=== PATIENT | female | born 1955 | race Caucasian/White ===

== ENCOUNTER 2019-05-15 11:41 | Emergency (ER) | payer OTHER ==
[~2019-05-15] VITALS: Ht 144.8 cm; Wt 79.4 kg
--- OUTSIDE RECORDS SUMMARY | ~2019-05-15 | XMS | Clinical Summary ---
Demographics + + + | Address | [address] | | | [place] [address] | + + + | Home Phone | | + + + | Preferred Language | Unknown | + + + | Marital Status | Single | + + + | Yazidi Affiliation | 1041 | + + + | Race | Unknown | + + + | Ethnic Group | Unknown | + + + Author + + + | Author | [facility] | | | and [place] | + + + | Organization | [facility] | | | and [place] | + + + | Address | Unknown | + + + | Phone | Unavailable | + + + Support + + + + + | Name | Relationship | Address | Phone | + + + + + | Jeremy Hinton | ECON | [address] | | | | | [id number] | | | | | [address] | | + + + + + Care Team Providers + +------+ + | Care Brush Hand Name | Role | Phone | + +------+ + | Idalia Rae DO | PCP | Unavailable | + +------+ + Allergies + + + + + + | Active Allergy | Reactions | Severity | Noted | Comments | | | | | Date | | + + + + + + | Sulfa Antibiotics | | | 09/15/19 | | | | | | 18 | | + + + + + + Medications + + + +---------+------+------+-------+ | Medication | Sig | Dispensed | Refills | Star | End | Statu | | | | | | t | Date | s | | | | | | Date | | | + + + +---------+------+------+-------+ | raNITIdine | Take 75 mg by mouth | | 0 | | | Activ | | (RANITIDINE ACID | 2 times daily. | | | | | e | | MANAGER ACTUARIAL) 75 MG | | | | | | | | tablet | | | | | | | + + + +---------+------+------+-------+ | levothyroxine | Take 75 mcg daily | 90 | 1 | 07/10 | | Activ | | (SYNTHROID) 75 MCG | | tablet | | 01/26 | | e | | tabletIndications: | | | | 19 | | | | Hypothyroidism, | | | | | | | | unspecified type | | | | | | | + + + +---------+------+------+-------+ Active Problems + + + | Problem | Noted Date | + + + | Gastroesophageal reflux disease without esophagitis | 09/14/2017 | + + + | Mild intermittent asthma without complication | 09/14/2017 | + + + | Migraine without aura and without status migrainosus, not | 09/14/2017 | | intractable | | + + + | Primary osteoarthritis of both knees | 09/14/2017 | + + + | Acquired hypothyroidism | 09/14/2017 | + + + | Colon polyp | 09/14/2017 | + + + | Obesity (BMI 35.0-39.9 without comorbidity) | 09/14/2017 | + + + | Other hyperlipidemia | 09/14/2017 | + + + | Vitamin D deficiency | 09/14/2017 | + + + Immunizations + + + + | Name | Dates Previously Given | Next Due | + + + + | TDAP, (ADOL/ADULT) | 05/11/2016 | | + + + + Family History + + +------+ + | Medical History | Relation | Name | Comments | + + +------+ + | Asthma | Daughter | | | + + +------+ + | COPD | Father | | | + + +------+ + | Heart disease | Father | | | + + +------+ + | High blood pressure | Father | | | + + +------+ + | Asthma | Mother | | | + + +------+ + + +------+--------+ + | Relation | Name | Status | Comments | + +------+--------+ + | Daughter | | | | + +------+--------+ + | Father | | | | + +------+--------+ + | Mother | | | | + +------+--------+ + Social History + +-------+ +--------+------+ | [...] + +---------+ + | Alcohol Use | Drinks/We | oz/Week | Comments | | | ek | | | + + +---------+ + | Yes [...] recent travel history available. | + + Last Filed Vital Signs + + + + | Vital Sign | Reading | Time Taken | + + + + | Blood Pressure | 140/74 | 12/28/2017 1112 PDT | + + + + | Pulse | 92 | 12/28/20171111 PDT | + + + + | Temperature | 36 C (96.8 F) | 12/01/20171137 PDT | + + + + | Respiratory Rate | 16 | 12/28/20171111 PDT | + + + + | Oxygen Saturation | 96% | 12/28/20171111 PDT | + + + + | Inhaled Oxygen | - | - | | Concentration | | | + + + + | Weight | 77.4 kg (170 lb 9.6 | 12/28/20171111 PDT | | | oz) | | + + + + | Height | 144.8 cm (4' 9") | 12/28/20171111 PDT | + + + + | Body Mass Index | 36.92 | 12/28/20171111 PDT | + + + + Plan of Treatment + + + + + | Health Maintenance | Due Date | Last Done | Comments | + + + + + | Hepatitis C | | | | | Screening | 7 | | | + + + + + | Vaccine: | | | | | Pneumococcal 19-64 | 6 | | | | (PPSV23 only) Medium | | | | | Risk (1 of 1 - | | | | | PPSV23) | | | | + + + + + | Cervical Cancer | | | | | Screening (Pap) | 7 | | | + + + + + | Vaccine: Zoster (1 | | | | | of 2) | 7 | | | + + + + + | Breast Cancer | | 11/24/2016 | | | Screening | 9 | | | + + + + + | Primary Care | | 12/28/2017, 10/05/2017, | | | Outreach (Moderate | 9 | 09/14/2017 | | | Risk) | | | | + + + + + | Vaccine: Influenza | | | | | (#1) | 9 | | | + + + + + | Vaccine: | | 05/11/2016 | | | Dtap/Tdap/Td (2 - | 6 | | | | Td) | | | | + + + + + Results Not on filefrom Last 3 Months Insurance + +--------+ +--------+ +---------+--------+ | Payer | Benefi | Subscriber | Effect | Phone | Address | Type | | | t Plan | ID | kandice | | | | | | / | | Dates | | | | | | Group | | | | | | + +--------+ +--------+ +---------+--------+ | [employer] | [employer] | [id number] | 05/25/ | [phone] | | Medica | | MEDICAID HMO | HEALTH | | 2017-P | 1 | | id | | | MDCD | | resent | | | | | | [place]MO [place] | | | | | | + +--------+ +--------+ +---------+--------+ + +--------+ +--------+ + + | Guarantor Name | Accoun | Relation to | Date | Phone | Billing Address | | | t Type | Patient | of | | | | | | | | | | + +--------+ +--------+ + + | Tangela Hinton | Person | Self [birth year] | [address] | | | [place] | | 1956 | [phone] | [place] | | | lc | | | 0 (Home) | [address] | + +--------+ +--------+ + + Advance Directives Patient has advance care planning documents on file. For more information, please contact:[facility] [place] [address]
--- OUTSIDE RECORDS SUMMARY | ~2019-05-15 | XMS | Clinical Summary ---
Demographics + + + | Address | [address] | | | [place] [address] | + + + | Home Phone | | + + + | Preferred Language | Unknown | + + + | Marital Status | Single | + + + | Restoration Affiliation | 1041 | + + + [...] | Jeremy Hinton | ECON | [address] | | | | | [id number] | | | | | [address] | | + + + + + Care Team Providers + +------+ + | Care Vfx Artist Name | Role | Phone | + [...] | | | | e | | SUPERVISING LAW ENFORCEMENT ANALYST) 75 MG | | | | | [...] | [employer] | MODA | [id number] | 05/25/ | [phone] | | Medica | | MEDICAID HMO [...] | | al/[place]ray | | 1956 | [phone] | [place] | | | lc | | | 0 (Home) | [address] | + +--------+ +--------+ + + Advance Directives Patient has advance care planning documents on file. For more information, please contact:[facility]i [facility] [place] [address]
[2019-05-15] MEDS ORDERED: LEVOTHYROXINE75 MCG PO (11:59)
== END 2019-05-15 14:05 | disposition home or self-care (01) ==
LOC: ED 11:41
DX: R10.9 Unspecified abdominal pain (principal); Z88.2 Allergy status to sulfonamides; Z79.899 Other long term (current) drug therapy
CPT/HCPCS: 74177; 80053; 81001; 85025; 99284-25; J1885; Q9967

== ENCOUNTER 2019-05-19 13:35 | Emergency (ER) | payer OTHER ==
[~2019-05-19] VITALS: Ht 144.8 cm; Wt 79.4 kg
--- OUTSIDE RECORDS SUMMARY | ~2019-05-19 | XMS | Encounter Summary ---
Demographics + + + | Address | [address] | | | [place] [address] | + + + | Home Phone | | + + + | Preferred Language | Unknown | + + + | Marital Status | Single | + + + | Gnosticist Affiliation | 1041 | + + + | Race | Unknown | + + + | Ethnic Group | Unknown | + + + Author + + + | Author | [facility] | | | and [place] | + + + | Organization | [facility] | | | and [place] | + + + | Address | Unknown | + + + | Phone | Unavailable | + + + Support + + + + + | Name | Relationship | Address | Phone | + + + + + | Jeremy Hinton | ECON | [address] | | | | | [id number] | | | | | [address] | | + + + + + Care Team Providers + +------+ + | Care Information Systems Supervisor Name | Role | Phone | + +------+ + PCP | Unavailable | + +------+ + Encounter Details +--------+ + + + + | Date | Type | Department | Care Team | Description | +--------+ + + + + | 11/24/ | [facility] | Idalia Rae, | | | 2016 | Encounter | Hospital Mammography | DO [address] | | | | | [address] | [place] [address] | | | | | [place], [place] | [phone] | | | | | [address] | | | | | | [phone] | | | +--------+ + + + + Social History + +-------+ +--------+------+ | Tobacco Use | Types | Packs/Day | Years | Date | | | | | Used | | + +-------+ +--------+------+ | Never Assessed | | | | | + +-------+ +--------+------+ + + + | Sex Assigned at | Date Recorded | | | | + + + | Not on file | | + + + + + + + | Job Start Date | Occupation | Industry | + + + + | Not on file | Not on file | Not on file | + + + + + + + + | Travel History | Travel Start | Travel End | + + + + + + | No recent travel history available. | + + documented as of this encounter Plan of Treatment Not on filedocumented as of this encounter Procedures + +--------+ + + + | Procedure Name | Priori | Date/Time | Associated Diagnosis | Comments | | | ty | | | | + +--------+ + + + | MÓNICA DIGITAL | Routin | 11/24/2016 | | Results for this | | SCREENING BILATERAL | e | 9:13 AM | | procedure are in the | | | | PDT | | results section. | + +--------+ + + + documented in this encounter Results [facility] Digital Screening Bilateral (11/24/2016 9:13 AM PDT) + + | Specimen | + + | | + + + + + | Narrative | Performed At | + + + | EXAMINATION: [facility] SCREEN OUTPATIENT HISTORY: Routine | | | COMPARISON STUDY: No comparison. TECHNIQUE: 3D tomosynthesis, | | | 2D synthesized images and standard digital mammographic images are | | | utilized in study interpretation. Computer-aided detection analysis | | | was performed and included in the interpretation of this study. | | | FINDINGS: Dispersed fibroglandular density is present. At the | | | middle 3rd depth lateral left breast approximate 2 o'clock position a | | | group of round microcalcification of varying size is present. A | | | intramammary lymph nodes are noted at the posterior 3rd depth lateral | | | right breast. IMPRESSION: BIRADS category: 0. | | | Microcalcification left breast for which diagnostic mammogram is | | | recommended. COMMENT: 1. A negative or "no suspicious | | | findings" mammogram report should not delay biopsy if clinical | | | suspicious findings are present. 2. About 7% of breast | | | cancers are not visible on mammogram. 3. Dense breasts | | | can obscure significant breast masses. COMMENT: BIRADS category 0 | | | Incomplete: Needs additional imaging evaluation. BIRADS category 1 | | | Negative mammogram. BIRADS category 2 Benign findings. BIRADS | | | category 3 Probably benign finding, short interval follow-up | | | suggested. BIRADS category 4 Suspicious for/of malignancy. BIRADS | | | category 5 Highly suggestive for/of malignancy. JOB #: [id number] | | | Digitally Released by: Alex Lozano Read By: ALEX Barajas | | | MD SURESH Date: 11/24/2016 12:31 | | + + + + + | Procedure Note | + + | Kirk, Rad Results In - 07/20/2017 12:31 PM PST EXAMINATION: | | MÓNICA SCREEN OUTPATIENT | | | | HISTORY: | | Routine | | | | COMPARISON STUDY: | | No comparison. | | | | TECHNIQUE: | | 3D tomosynthesis, 2D synthesized images and standard digital mammographic | | images are utilized in study interpretation. Computer-aided detection | | analysis was performed and included in the interpretation of this study. | | | | FINDINGS: | | Dispersed fibroglandular density is present. At the middle 3rd depth lateral | | left breast approximate 2 o'clock position a group of round microcalcification | | of varying size is present. | | | | A intramammary lymph nodes are noted at the posterior 3rd depth lateral right | | breast. | | | | | | IMPRESSION: | | BIRADS category: 0. Microcalcification left breast for which diagnostic | | mammogram is recommended. | | | | COMMENT: | | 1. A negative or "no suspicious findings" mammogram report should not | | delay biopsy if clinical suspicious findings are present. | | 2. About 7% of breast cancers are not visible on mammogram. | | 3. Dense breasts can obscure significant breast masses. | | | | COMMENT: | | BIRADS category 0 Incomplete: Needs additional imaging evaluation. | | BIRADS category 1 Negative mammogram. | | BIRADS category 2 Benign findings. | | BIRADS category 3 Probably benign finding, short interval follow-up suggested. | | BIRADS category 4 Suspicious for/of malignancy. | | BIRADS category 5 Highly suggestive for/of malignancy. | | | | | | JOB #: [id number] | | Digitally Released by: Alex Lozano | | | | | | Read By: ALEX LOZANO MD | | Date: 11/24/2016 12:31 | | | + + documented in this encounter Visit Diagnoses Not on filedocumented in this encounter
--- OUTSIDE RECORDS SUMMARY | ~2019-05-19 | XMS | Encounter Summary ---
Demographics + + + | Address | [address] | | | [place] [address] | + + + | Home Phone | | + + + | Preferred Language | Unknown | + + + | Marital Status | Single | + + + | Rastafari Affiliation | 1041 | + + + | Race | Unknown | + + + | Ethnic Group | Unknown | + + + Author + + + | Author | [facility] | | | and [place] | + + + | Organization | [facility] | | | and [place] | + + + | Address | Unknown | + + + | Phone | Unavailable | + + + Support + + + + + | Name | Relationship | Address | Phone | + + + + + | Jeremy Hinton | ECON | [address] | | | | | [id number] | | | | | [address] | | + + + + + Care Team Providers + +------+ + | Care Janitorial Manager Name | Role | Phone | + +------+ + PCP | Unavailable | + +------+ + Encounter Details +--------+ + + + + | Date | Type | Department | Care Team | Description | +--------+ + + + + | 12/06/ | [facility] | Idalia Rae, | | | 2017 | Encounter | HOSPITAL XRAY [address] | DO [address] [facility] | | | | | [address] | [place] [address] | | | | | [place], [place] | [phone] | | | | | [address] | | | | | | [phone] | | | +--------+ + + + [...] | + +--------+ + + + | [facility] DIGITAL | Routin | 12/06/2016 | | Results for this | | DIAGNOSTIC LEFT | e | 1:54 PM | | procedure are in the | | | | PDT | | results section. | + +--------+ + + + documented in this encounter Results [facility] Digital Diagnostic Left (12/06/2016 1:54 PM PDT) + + | Specimen | + + | | + + + + + | Narrative | Performed At | + + + | EXAMINATION: [facility] DIAG LEFT/ADD'L VIEWS HISTORY: Left breast | | | calcs. COMPARISON STUDY: 11/24/2016 TECHNIQUE: 3D | | | tomosynthesis, 2D synthesized images and standard digital | | | mammographic images are utilized in study interpretation. | | | Computer-aided detection analysis was performed and included in the | | | interpretation of this study. FINDINGS: A group of irregular | | | size microcalcification is present at the middle 3rd depth | | | approximate 2 o'clock position. No distinct associated architectural | | | distortion or mass is seen. The calcifications do demonstrate | | | irregular shape. Dispersed fibroglandular density is present. | | | Intramammary lymph nodes are present at the upper posterior 3rd | | | depth. IMPRESSION: BIRADS category: 3. Probable benign | | | calcification for which 6 month diagnostic mammogram is recommended. | | | COMMENT: 1. A negative or "no suspicious findings" | | | mammogram report should not delay biopsy if clinical suspicious | | | findings are present. 2. About 7% of breast cancers are | | | not visible on mammogram. 3. Dense breasts can obscure | | | significant breast masses. COMMENT: BIRADS category 0 Incomplete: | | | Needs additional imaging evaluation. BIRADS category 1 Negative | | | mammogram. BIRADS category 2 Benign findings. BIRADS category 3 | | | Probably benign finding, short interval follow-up suggested. BIRADS | | | category 4 Suspicious for/of malignancy. BIRADS category 5 Highly | | | suggestive for/of malignancy. JOB #: [id number] Digitally Released | | | by: Alex Lozano Read By: ALEX LOZANO MD Date: | | | 12/06/2016 14:48 | | + + + + + | Procedure Note | + + | Kirk, Rad Results In - 07/20/2017 12:38 PM PST EXAMINATION: | | MÓNICA DIAG LEFT/ADD'L VIEWS | | | | HISTORY: | | Left breast calcs. | | | | COMPARISON STUDY: | | 11/24/2016 | | | | TECHNIQUE: | | 3D tomosynthesis, 2D synthesized images and standard digital mammographic | | images are utilized in study interpretation. Computer-aided detection | | analysis was performed and included in the interpretation of this study. | | | | FINDINGS: | | A group of irregular size microcalcification is present at the middle 3rd | | depth approximate 2 o'clock position. No distinct associated architectural | | distortion or mass is seen. The calcifications do demonstrate irregular | | shape. Dispersed fibroglandular density is present. Intramammary lymph nodes | | are present at the upper posterior 3rd depth. | | | | | | IMPRESSION: | | BIRADS category: 3. Probable benign calcification for which 6 month | | diagnostic mammogram is recommended. | | | | [...] | | | | | JOB #: [id number] | | Digitally Released by: lAex Lozano | | | | | | Read By: ALEX LOZANO MD | | Date: 12/06/2016 14:48 | | | + + documented in this encounter Visit Diagnoses Not on filedocumented in this encounter
--- OUTSIDE RECORDS SUMMARY | ~2019-05-19 | XMS | Encounter Summary ---
Demographics + + + | Address | [address] | | | [place] [address] | + + + | Home Phone | | + + + | Preferred Language | Unknown | + + + | Marital Status | Single | + + + | Alevism Affiliation | 1041 | + + + | Race | Unknown | + + + | Ethnic Group | Unknown | + + + Author + + + | Author | [facility] | | | and [place] | + + + | Organization | [facility] | | | and [place] | + + + | Address | Unknown | + + + | Phone | Unavailable | + + + Support + + + + + | Name | Relationship | Address | Phone | + + + + + | Jeremy Hinton | ECON | [address] | | | | | [id number] | | | | | [address] | | + + + + + Care Team Providers + +------+ + | Care Supervisor Costuming Name | Role | Phone | + +------+ + | Idalia Rae DO | PCP | | + +------+ + Reason for Visit + + + | Reason | Comments | + + + | Results, Imaging | | + + + Encounter Details +--------+ + + + + | Date | Type | Department | Care Team | Description | +--------+ + + + + | 12/28/ | Telephone | [place] [facility] | Tracey Sahu, | Results, Imaging | | 2017 | | [facility] | PLASTIC SURGERY TECHNICIAN | | | | | [facility] [address] | | | | | | [address] [facility], | | | | | | [place] [address] | | | | | | [phone] | | | +--------+ + + + + Social History + +-------+ +--------+------+ | Tobacco Use | Types | Packs/Day | Years | Date | | | | | Used | | + +-------+ +--------+------+ | Never Smoker | | | | | + +-------+ +--------+------+ + +---+---+---+ | Smokeless Tobacco: | | | | | Never Used | | | | + +---+---+---+ + + +---------+ + | Alcohol Use | Drinks/Week | oz/Week | Comments | + + +---------+ + | Yes | | | rare | + + +---------+ + + + + | Sex Assigned at [...] Not on filedocumented as of this encounter Visit Diagnoses Not on filedocumented in this encounter"
--- OUTSIDE RECORDS SUMMARY | ~2019-05-19 | XMS | Encounter Summary ---
Demographics + + + | Address | [address] | | | [place] [address] | + + + | Home Phone | | + + + | Preferred Language | Unknown | + + + | Marital Status | Single | + + + | Orthodox Affiliation | 1041 | + + + | Race | Unknown | + + + | Ethnic Group | Unknown | + + + Author + + + | Author | [facility] | | | and [place] | + + + | Organization | [facility] | | | and [place] | + + + | Address | Unknown | + + + | Phone | Unavailable | + + + Support + + + + + | Name | Relationship | Address | Phone | + + + + + | Jeremy Hinton | ECON | [address] | | | | | [id number] | | | | | [address] | | + + + + + Care Team Providers + +------+ + | Care Press Officer Name | Role | Phone | + +------+ + PCP | Unavailable | + +------+ + Encounter Details +--------+ + + + + | Date | Type | Department | Care Team | Description | +--------+ + + + + | 11/11/ | [facility] | Idalia Rae, | | | 2016 | Encounter | HOSPITAL LABORATORY | DO [address] | | | | | [address] | [place] [address] | | | | | [place], [place] | [phone] | | | | | [address] | | | | | | [phone] | | | +--------+ + + + [...] | + +--------+ + + + | TSH | Routin | 11/11/2016 | | Results for this | | | e | 10:40 AM | | procedure are in the | | | | PDT | | results section. | + +--------+ + + + documented in this encounter Results TSH (11/11/2016 10:40 AM PDT) + +-------+ + + + | Component | Value | Ref Range | Performed | Pathologist | | | | | At | Signature | + +-------+ + + + | TSH | 1.36 | 0.36 - 3.74 | EXTERNAL | | | | | mIU/L | LAB | | + +-------+ + + + + + | Specimen | + + | | + + + +---------+ + + | Performing | Address | City/State/Zipcode | Phone Number | | Organization | | | | + +---------+ + + | EXTERNAL LAB | | | | + +---------+ + + documented in this encounter Visit Diagnoses Not on filedocumented in this encounter"
--- OUTSIDE RECORDS SUMMARY | ~2019-05-19 | XMS | Encounter Summary ---
Demographics + + + | Address | [address] | | | [place] [address] | + + + | Home Phone | | + + + | Preferred Language | Unknown | + + + | Marital Status | Single | + + + | Sikh Affiliation | 1041 | + + + | Race | Unknown | + + + | Ethnic Group | Unknown | + + + Author + + + | Author | [facility] | | | and [place] | + + + | Organization | [facility] | | | and [place] | + + + | Address | Unknown | + + + | Phone | Unavailable | + + + Support + + + + + | Name | Relationship | Address | Phone | + + + + + | Jeremy Hinton | ECON | [address] | | | | | [id number] | | | | | [address] | | + + + + + Care Team Providers + +------+ + | Care Roll Forming Supervisor Name | Role | Phone | + +------+ + | Idalia Rae DO | PCP | | + +------+ + Reason for Visit + + + | Reason | Comments | + + + | Lab Results | | + + + Encounter Details +--------+ + + + + | Date | Type | Department | Care Team | Description | +--------+ + + + + | 09/14/ | Telephone | [place] [facility] | Tracey Sahu, | Lab Results | | 2018 | | [facility] | DRAW BENCH OPERATOR | | | | | [facility] [address] | | | | | | [address] [facility] [place], | | | | | | [place] [address] | | | | | | [phone] | | | +--------+ + + + [...] | | | + +---+---+---+ + + + | Sex Assigned at [...]
--- OUTSIDE RECORDS SUMMARY | ~2019-05-19 | XMS | Encounter Summary ---
Demographics + + + | Address | [address] | | | [place] [address] | + + + | Home Phone | | + + + | Preferred Language | Unknown | + + + | Marital Status | Single | + + + | Pentecostal Affiliation | 1041 | + + + [...] | Jeremy Hinton | ECON | [address] | | | | | [id number] | | | | | [address] | | + + + + + Care Team Providers + +------+ + | Care Superintendent Warehouse Name | Role | Phone | + +------+ + PCP | Unavailable | + +------+ + Encounter Details +--------+ + + + + | Date | Type | Department | Care Team | Description | +--------+ + + + + | 05/11/ | [facility] | Idalia Rae, | | | 2015 | Encounter | [facility] | DO [address] | | | | | [facility] [address] | [place] [address] | | | | | [address] [place], | [phone] | | | | | [place] [address] | | | | | | [phone] | | | +--------+ + + + [...]
--- OUTSIDE RECORDS SUMMARY | ~2019-05-19 | XMS | Encounter Summary ---
Demographics + + + | Address | [address] | | | [place] [address] | + + + | Home Phone | | + + + | Preferred Language | Unknown | + + + | Marital Status | Single | + + + | Uatsdin Affiliation | 1041 | + + + | Race | Unknown | + + + | Ethnic Group | Unknown | + + + Author + + + | Author | [facility] | | | and [place] | + + + | Organization | [facility] | | | and [place] | + + + | Address | Unknown | + + + | Phone | Unavailable | + + + Support + + + + + | Name | Relationship | Address | Phone | + + + + + | Jeremy Hinton | ECON | [address] | | | | | [id number] | | | | | [address] | | + + + + + Care Team Providers + +------+ + | Care Food Service Team Member Name | Role | Phone | + +------+ + | Idalia Rae DO | PCP | | + +------+ + Encounter Details +--------+ + + + + | Date | Type | Department | Care Team | Description | +--------+ + + + + | 09/14/ | Orders Only | [place] [facility] | Idalia Rae, | Vitamin D deficiency | | 2018 | | [facility] | DO [address] | | | | | [facility] | [place] [address] | | | | | [address] [place], | [phone] | | | | | [place] [address] | | | | | | [phone] | | | +--------+ + + + [...] filedocumented as of this encounter Visit Diagnoses + + | Diagnosis | + + | Vitamin D deficiency Unspecified vitamin D deficiency | + + documented in this encounter"
--- OUTSIDE RECORDS SUMMARY | ~2019-05-19 | XMS | Encounter Summary ---
Demographics + + + | Address | [address] | | | [place] [address] | + + + | Home Phone | | + + + | Preferred Language | Unknown | + + + | Marital Status | Single | + + + | Anglican Affiliation | 1041 | + + + | Race | Unknown | + + + | Ethnic Group | Unknown | + + + Author + + + | Author | [facility] | | | and [place] | + + + | Organization | [facility] | | | and [place] | + + + | Address | Unknown | + + + | Phone | Unavailable | + + + Support + + + + + | Name | Relationship | Address | Phone | + + + + + | Jeremy Hinton | ECON | [address] | | | | | [id number] | | | | | [address] | | + + + + + Care Team Providers + +------+ + | Care Radiology Supervisor Name | Role | Phone | + +------+ + | Idalia Rae DO | PCP | | + +------+ + Encounter Details +--------+ + + + + | Date | Type | Department | Care Team | Description | +--------+ + + + + | 12/27/ | Abstract | [place] [facility] | Idalia Rae, | | | 2017 | | [facility] | DO [address] | | | | | MEDICAL CL[address] | [place] [address] | | | | | [address] [place], | [phone] | | | | | [place] [address] | | | | | | [phone] | | | +--------+ + + + [...] | + +--------+ + + + | EXTERNAL: | Routin | 10/21/2016 | | Results for this | | COLONOSCOPY | e | | | procedure are in the | | | | | | results section. | + +--------+ + + + documented in this encounter Results EXTERNAL: COLONOSCOPY (10/21/2016) + + + + + + | Component | Value | Ref Range | Performed | Pathologist | | | | | At | Signature | + + + + + + | Colonoscopy | Findings: 1, Beatriz's | | | | | | ring with small hiatal | | | | | Impression, | hernia. No ulcer; 2. | | | | | External | Multiple colon polyps, | | | | | | one particularly large | | | | | | in the sigmoid colon, | | | | | | others in sigmoid and | | | | | | transverse and right | | | | | | colon; Plan; Repeat in | | | | | | 1 year.Comment: | | | | | | Dictating Practitioner: | | | | | | Miguel Villegas, | | | | | | | | | | + + + + + + documented in this encounter Visit Diagnoses Not on filedocumented in this encounter"
--- OUTSIDE RECORDS SUMMARY | ~2019-05-19 | XMS | Encounter Summary ---
Demographics + + + | Address | [address] | | | [place] [address] | + + + | Home Phone | | + + + | Preferred Language | Unknown | + + + | Marital Status | Single | + + + | Scientologist Affiliation | 1041 | + + + | Race | Unknown | + + + | Ethnic Group | Unknown | + + + Author + + + | Author | [facility] | | | and [place] | + + + | Organization | [facility] | | | and [place] | + + + | Address | Unknown | + + + | Phone | Unavailable | + + + Support + + + + + | Name | Relationship | Address | Phone | + + + + + | Jeremy Hinton | ECON | [address] | | | | | [id number] | | | | | [address] | | + + + + + Care Team Providers + +------+ + | Care School Operations Manager Name | Role | Phone | + +------+ + PCP | Unavailable | + +------+ + Encounter Details +--------+ + + + + | Date | Type | Department | Care Team | Description | +--------+ + + + + | 10/21/ | [facility] | [place] [facility] | Nelly, | | | 2017 | Encounter | [facility] | Christopher Goran, | | | | | [address] | [address] | | | | | [place] | [place], [place] | | | | | [address] | [address] | | | | | [phone] | | | | | | | | +--------+ + + + [...] | + +--------+ + + + | HELICOBACTER PYLORI | Routin | 10/21/2016 | | Results for this | | BIOPSY | e | 10:59 AM | | procedure are in the | | | | PDT | | results section. | + +--------+ + + + documented in this encounter Results Helicobactor pylori Biopsy (10/21/2016 10:59 AM PDT) + + + + + + | Component | Value | Ref Range | Performed | Pathologist | | | | | At | Signature | + + + + + + | CLOTEST | NEGATIVE | NEGATIVE | EXTERNAL | | | | | | LAB | | + + + + + + | Internal QC | POSITIVE | POSITIVE | EXTERNAL | | | | | | LAB | | + + + + + + + + | Specimen [...]
--- OUTSIDE RECORDS SUMMARY | ~2019-05-19 | XMS | Encounter Summary ---
Demographics + + + | Address | [address] | | | [place] [address] | + + + | Home Phone | | + + + | Preferred Language | Unknown | + + + | Marital Status | Single | + + + | Pentecostalism Affiliation | 1041 | + + + | Race | Unknown | + + + | Ethnic Group | Unknown | + + + Author + + + | Author | [facility] | | | and [place] | + + + | Organization | [facility] | | | and [place] | + + + | Address | Unknown | + + + | Phone | Unavailable | + + + Support + + + + + | Name | Relationship | Address | Phone | + + + + + | Jeremy Hinton | ECON | [address] | | | | | [id number] | | | | | [address] | | + + + + + Care Team Providers + +------+ + | Care Fur Mixer Name | Role | Phone | + +------+ + PCP | Unavailable | + +------+ + Encounter Details +--------+ + + + + | Date | Type | Department | Care Team | Description | +--------+ + + + + | 10/20/ | Orders Only | [place] [facility] | Josh, | Breast calcification | | 2017 | | [facility] | Roxanne Garcia RN | seen on mammogram | | | | [facility] [address] | | (Primary Dx) | | | | [address] [place], | | | | | | [place] [address] | | | | | | [phone] | | | +--------+ + + + [...] Not on filedocumented as of this encounter Results MÓNICA Tomosynthesis Diagnostic Left (05/25/2017 1:02 PM PST) + + | Specimen | + + | | + + + + + | Impressions | Performed At | + + + | IMPRESSION: BIRADS category: 4B. Biopsy recommended for | [facility] | | calcifications. The calcifications would be amenable to stereotactic | | | biopsy. Report is forwarded to the ordering clinician at the time | | | of dictation. Dictated by: Vadim Lozano | | + + + + + + | Narrative | Performed At | + + + | EXAMINATION: MÓNICA TOMOSYN DIAGNOSTIC LEFT HISTORY: left breast | [facility] | | f/u in 6 months, due to calcification findings in routine mammo | | | COMPARISON STUDY: 12/06/2016. 11/24/2016. TECHNIQUE: 3D | | | tomosynthesis, 2D synthesized images and standard digital | | | mammographic images are utilized in study interpretation. | | | Computer-aided detection analysis was performed and included in the | | | interpretation of this study. FINDINGS: A group of | | | microcalcification is noted at the middle to posterior 3rd depth | | | lateral breast approximate 2 o'clock position. Subtle apparent | | | increase in the number of calcifications is noted. No associated | | | mass or architectural distortion is seen. COMMENT: 1. | | | A negative or "no suspicious findings" mammogram report should not | | | delay biopsy if clinical suspicious findings are present. 2. | | | About 7% of breast cancers are not visible on mammogram. 3. | | | Dense breasts can obscure significant breast masses. | | | COMMENT: BIRADS category 0 Incomplete: Needs additional imaging | | | evaluation. BIRADS category 1 Negative mammogram. BIRADS category 2 | | | Benign findings. BIRADS category 3 Probably benign finding, short | | | interval follow-up suggested. BIRADS category 4 Suspicious for/of | | | malignancy. BIRADS category 5 Highly suggestive for/of malignancy. | | + + + + +---------+ + + | Performing | Address | City/State/Zipcode | Phone Number | | Organization | | | | + +---------+ + + | [facility] | | | | + +---------+ + + documented in this encounter Visit Diagnoses + + | Diagnosis | + + | Breast calcification seen on mammogram - Primary Other (abnormal) findings on | | radiological examination of breast | + + documented in this encounter
--- OUTSIDE RECORDS SUMMARY | ~2019-05-19 | XMS | Encounter Summary ---
Demographics + + + | Address | [address] | | | [place] [address] | + + + | Home Phone | | + + + | Preferred Language | Unknown | + + + | Marital Status | Single | + + + | Jewish Affiliation | 1041 | + + + | Race | Unknown | + + + | Ethnic Group | Unknown | + + + Author + + + | Author | [facility] | | | and [place] | + + + | Organization | [facility] | | | and [place] | + + + | Address | Unknown | + + + | Phone | Unavailable | + + + Support + + + + + | Name | Relationship | Address | Phone | + + + + + | Jeremy Hinton | ECON | [address] | | | | | [id number] | | | | | [address] | | + + + + + Care Team Providers + +------+ + | Care No Bake Molder Name | Role | Phone | + +------+ + | Idalia Rae DO | PCP | | + +------+ + Encounter Details +--------+ + + + + | Date | Type | Department | Care Team | Description | +--------+ + + + + | 05/25/ | Hospital | [facility] | Idalia Rae, | Breast calcification | | 2017 | Encounter | [facility] | DO [address] | seen on mammogram | | | | [address] | [place] [address] | | | | | [place], [place] | [phone] | | | | | [address] | | | | | | [phone] | Radiologist, Cc Wgr | | +--------+ + + + + [...] + +--------+ + + + | MÓNICA TOMOSYN | Routin | 05/25/2017 | Breast | Results for this | | DIAGNOSTIC LEFT | e | 1:02 PM | calcification seen | procedure are in the | | | | PST | on mammogram | results section. | + +--------+ + + + documented in this encounter Results MÓNICA Tomosynthesis Diagnostic Left [...] + | Breast calcification seen on mammogram Other (abnormal) findings on radiological | | examination of breast | + + documented in this encounter
--- OUTSIDE RECORDS SUMMARY | ~2019-05-19 | XMS | Encounter Summary ---
Demographics + + + | Address | [address] | | | [place] [address] | + + + | Home Phone | | + + + | Preferred Language | Unknown | + + + | Marital Status | Single | + + + | Mandaeism Affiliation | 1041 | + + + | Race | Unknown | + + + | Ethnic Group | Unknown | + + + Author + + + | Author | [facility] | | | and [place] | + + + | Organization | [facility] | | | and [place] | + + + | Address | Unknown | + + + | Phone | Unavailable | + + + Support + + + + + | Name | Relationship | Address | Phone | + + + + + | Jeremy Hinton | ECON | [address] | | | | | [id number] | | | | | [address] | | + + + + + Care Team Providers + +------+ + | Care Back Digger Operator Name | Role | Phone | + +------+ + PCP | Unavailable | + +------+ + Encounter Details +--------+ + + + + | Date | Type | Department | Care Team | Description | +--------+ + + + + | 01/20/ | [facility] | Nelly, | | | 2016 | Encounter | [facility] | Miguel Zimmer, | | | | | SURGERY [address] | [address] | | | | | [address] [place], | [place], [place] | | | | | [place] [address] | [address] | | | | | [phone] | [phone] | | | | | | | [...]
--- OUTSIDE RECORDS SUMMARY | ~2019-05-19 | XMS | Encounter Summary ---
Demographics + + + | Address | [address] | | | [place] [address] | + + + | Home Phone | | + + + | Preferred Language | Unknown | + + + | Marital Status | Single | + + + | Christian Affiliation | 1041 | + + + | Race | Unknown | + + + | Ethnic Group | Unknown | + + + Author + + + | Author | [facility] | | | and [place] | + + + | Organization | [facility] | | | and [place] | + + + | Address | Unknown | + + + | Phone | Unavailable | + + + Support + + + + + | Name | Relationship | Address | Phone | + + + + + | Jeremy Hinton | ECON | [address] | | | | | [id number] | | | | | [address] | | + + + + + Care Team Providers + +------+ + | Care Improvement Advisor Name | Role | Phone | + +------+ + PCP | Unavailable | + +------+ + Encounter Details +--------+ + + + + | Date | Type | Department | Care Team | Description | +--------+ + + + + | 08/22/ | [facility] | Nelly, | | | 2017 | Encounter | [facility] | Miguel Zimmer, | | | | | SURGERY [address] | [address] | | | | | [address] [place], | [place], [place] | | | | | [place] [address] | [address] | | | | | [phone] | [phone] | | | | | | | [...]
--- OUTSIDE RECORDS SUMMARY | ~2019-05-19 | XMS | Encounter Summary ---
Demographics + + + | Address | [address] | | | [place] [address] | + + + | Home Phone | | + + + | Preferred Language | Unknown | + + + | Marital Status | Single | + + + | Mormon Affiliation | 1041 | + + + | Race | Unknown | + + + | Ethnic Group | Unknown | + + + Author + + + | Author | [facility] | | | and [place] | + + + | Organization | [facility] | | | and [place] | + + + | Address | Unknown | + + + | Phone | Unavailable | + + + Support + + + + + | Name | Relationship | Address | Phone | + + + + + | Jeremy Hinton | ECON | [address] | | | | | [id number] | | | | | [address] | | + + + + + Care Team Providers + +------+ + | Care Bulk Sugar Handler Name | Role | Phone | + +------+ + PCP | Unavailable | + +------+ + Encounter Details +--------+ + + + + | Date | Type | Department | Care Team | Description | +--------+ + + + + | 08/11/ | [facility] | Idalia Rae, | | | 2016 | Encounter | [facility] | DO [address] | | | | | [address] | [place] [address] | | | | | [place], [place] | [phone] | | | | | [address] | | | | | | [phone] | | | +--------+ + + + [...] + + | TSH | Routin | 08/11/2016 | | Results for this | | | e | 2:30 PM | | procedure are in the | | | | PST | | results section. | + +--------+ + + + documented in this encounter Results TSH (08/11/2016 2:30 PM PST) + +-------+ + + + | Component | Value | Ref Range | Performed | Pathologist | | | | | At | Signature | + +-------+ + + + | TSH | 0.17 | 0.36 - 3.74 | EXTERNAL | [...]
--- OUTSIDE RECORDS SUMMARY | ~2019-05-19 | XMS | Encounter Summary ---
Demographics + + + | Address | [address] | | | [place] [address] | + + + | Home Phone | | + + + | Preferred Language | Unknown | + + + | Marital Status | Single | + + + | Worship Affiliation | 1041 | + + + | Race | Unknown | + + + | Ethnic Group | Unknown | + + + Author + + + | Author | [facility] | | | and [place] | + + + | Organization | [facility] | | | and [place] | + + + | Address | Unknown | + + + | Phone | Unavailable | + + + Support + + + + + | Name | Relationship | Address | Phone | + + + + + | Jeremy Hinton | ECON | [address] | | | | | [id number] | | | | | [address] | | + + + + + Care Team Providers + +------+ + | Care Contract Officer Name | Role | Phone | + +------+ + | Idalia Rae DO | PCP | | + +------+ + Encounter Details +--------+ + + + + | Date | Type | Department | Care Team | Description | +--------+ + + + + | 12/27/ | Abstract | [place] [facility] | Idalia Rae, | | | 2017 | | [facility] | DO [address] | | | | | MED[address] | [place] [address] | | | | | [address] [place], | [phone] | | | | | [place] [address] | | | | | | [phone] | | | +--------+ + + + [...]
--- OUTSIDE RECORDS SUMMARY | ~2019-05-19 | XMS | Encounter Summary ---
Demographics + + + | Address | [address] | | | [place] [address] | + + + | Home Phone | | + + + | Preferred Language | Unknown | + + + | Marital Status | Single | + + + | Orthodoxy Affiliation | 1041 | + + + | Race | Unknown | + + + | Ethnic Group | Unknown | + + + Author + + + | Author | [facility] | | | and [place] | + + + | Organization | [facility] | | | and [place] | + + + | Address | Unknown | + + + | Phone | Unavailable | + + + Support + + + + + | Name | Relationship | Address | Phone | + + + + + | Jeremy Hinton | ECON | [address] | | | | | [id number] | | | | | [address] | | + + + + + Care Team Providers + +------+ + | Care Medical Record Administrator Name | Role | Phone | + +------+ + PCP | Unavailable | + +------+ + Encounter Details +--------+ + + + + | Date | Type | Department | Care Team | Description | +--------+ + + + + | 05/11/ | [facility] | Idalia Rae, | | | 2015 | Encounter | [facility] | DO [address] | | | | | [address] | [place] [address] | | | | | [place], [place] | [phone] | | | | | [address] | | | | | | [phone] | | | +--------+ + + + [...] | + +--------+ + + + | LIPID PANEL | Routin | 05/11/2016 | | Results for this | | | e | 8:15 AM | | procedure are in the | | | | PDT | | results section. | + +--------+ + + + | CBC W/AUTO | Routin | 05/11/2016 | | Results for this | | DIFFERENTIAL | e | 8:15 AM | | procedure are in the | | | | PDT | | results section. | + +--------+ + + + | TSH | Routin | 05/11/2016 | | Results for this | | | e | 8:15 AM | | procedure are in the | | | | PDT | | results section. | + +--------+ + + + | COMPREHENSIVE | Routin | 05/11/2016 | | Results for this | | METABOLIC PANEL | e | 8:15 AM | | procedure are in the | | | | PDT | | results section. | + +--------+ + + + documented in this encounter Results TSH (05/11/2016 8:15 AM PDT) + +-------+ + + + | Component | Value | Ref Range | Performed | Pathologist | | | | | At | Signature | + +-------+ + + + | TSH | 5.27 | 0.36 - 3.74 | EXTERNAL | [...] | | | + +---------+ + + Lipid Panel (05/11/2016 8:15 AM PDT) + +-------+ + + + | Component | Value | Ref Range | Performed | Pathologist | | | | | At | Signature | + +-------+ + + + | Cholesterol | 240 | <=200 mg/dL | EXTERNAL | | | , POC | | | LAB | | + +-------+ + + + | HDL | 62 | >=40 mg/dL | EXTERNAL | | | | | | LAB | | + +-------+ + + + | Triglycerid | 108 | 30 - 200 mg/dL | EXTERNAL | | | es | | | LAB | | + +-------+ + + + | Chol/HDL | 3.9 | <=4.6 RATIO | EXTERNAL | | | Ratio | | | LAB | | + +-------+ + + + | VLDL | 22 | 4 - 40 mg/dL | EXTERNAL | | | | | | LAB | | + +-------+ + + + | LDL-C | 156 | <=130 mg/dL | EXTERNAL | | | (calculated | | | LAB | | | ) | | | | | + +-------+ + + + + + | Specimen | + + | | + + + +---------+ + + | Performing | Address | City/State/Zipcode | Phone Number | | Organization | | | | + +---------+ + + | EXTERNAL LAB | | | | + +---------+ + + Comprehensive Metabolic Panel (05/11/2016 8:15 AM PDT) + +-------+ + + + | Component | Value | Ref Range | Performed | Pathologist | | | | | At | Signature | + +-------+ + + + | Sodium | 140 | 132 - 143 | EXTERNAL | | | | | mmol/L | LAB | | + +-------+ + + + | Potassium | 3.6 | 3.3 - 4.9 | EXTERNAL | | | | | mmol/L | LAB | | + +-------+ + + + | Cl | 104 | 95 - 108 mmol/L | EXTERNAL | | | | | | LAB | | + +-------+ + + + | CO2 | 28 | 23 - 34 mmol/L | EXTERNAL | | | | | | LAB | | + +-------+ + + + | Anion Gap | 9 | 7 - 16 | EXTERNAL | | | | | | LAB | | + +-------+ + + + | Calcium | 8.7 | 8.3 - 10.0 | EXTERNAL | | | | | mg/dL | LAB | | + +-------+ + + + | Glucose | 105 | 70 - 110 mg/dL | EXTERNAL | | | | | | LAB | | + +-------+ + + + | BUN, Bld | 14 | 5 - 26 mg/dL | EXTERNAL | | | | | | LAB | | + +-------+ + + + | Creatinine | 0.93 | 0.60 - 1.30 | EXTERNAL | | | | | mg/dL | LAB | | + +-------+ + + + | BUN/Creatin | 15.1 | 7.0 - 24.0 | EXTERNAL | | | ine Ratio | | RATIO | LAB | | + +-------+ + + + | GFR | 60 | >=60 | EXTERNAL | | | ESTIMATE | | mL/min/1.73m2 | LAB | | + +-------+ + + + | Bilirubin, | 0.5 | <=1.2 mg/dL | EXTERNAL | | | Total | | | LAB | | + +-------+ + + + | Protein, | 7.7 | 6.6 - 8.5 g/dL | EXTERNAL | | | Total | | | LAB | | + +-------+ + + + | Albumin | 3.7 | 3.0 - 4.5 g/dL | EXTERNAL | | | | | | LAB | | + +-------+ + + + | Alkaline | 83 | 46 - 116 U/L | EXTERNAL | | | Phosphatase | | | LAB | | + +-------+ + + + | ALT, | 34 | 14 - 59 U/L | EXTERNAL | | | External | | | LAB | | + +-------+ + + + | AST, | 19 | <=38 U/L | EXTERNAL | | | External | | | LAB | | + +-------+ + + + + + | Specimen | + + | | + + + +---------+ + + | Performing | Address | City/State/Zipcode | Phone Number | | Organization | | | | + +---------+ + + | EXTERNAL LAB | | | | + +---------+ + + CBC w/ Auto Differential (05/11/2016 8:15 AM PDT) + +-------+ + + + | Component | Value | Ref Range | Performed | Pathologist | | | | | At | Signature | + +-------+ + + + | WBC | 9.9 | 4.3 - 10.4 | EXTERNAL | | | | | 1000/mm3 | LAB | | + +-------+ + + + | RBC | 4.42 | 4.12 - 5.30 | EXTERNAL | | | | | mil/mm3 | LAB | | + +-------+ + + + | HGB, | 12.8 | 12.4 - 15.7 | EXTERNAL | | | External | | g/dL | LAB | | + +-------+ + + + | HCT, | 37.7 | 37.7 - 47.0 % | EXTERNAL | | | External | | | LAB | | + +-------+ + + + | MCV | 85 | 82 - 97 fl | EXTERNAL | | | | | | LAB | | + +-------+ + + + | MCH | 29 | 27.1 - 32.3 pg | EXTERNAL | | | | | | LAB | | + +-------+ + + + | MCHC | 34 | 32.0 - 36.9 | EXTERNAL | | | | | g/dL | LAB | | + +-------+ + + + | RDW-CV | 14.3 | <=17.0 % | EXTERNAL | | | | | | LAB | | + +-------+ + + + | Platelet | 294 | 150 - 450 | EXTERNAL | | | Count | | 1000/mm3 | LAB | | | Plasma | | | | | + +-------+ + + + | MPV | 11.2 | 9.4 - 12.3 FL | EXTERNAL | | | | | | LAB | | + +-------+ + + + | % Segmented | 49.8 | 42.0 - 76.0 % | EXTERNAL | | | | | | LAB | | | Neutrophils | | | | | + +-------+ + + + | LYMPH % | 42.7 | 20.0 - 40.0 % | EXTERNAL | | | | | | LAB | | + +-------+ + + + | % Monocytes | 7.5 | <=12.0 % | EXTERNAL | | | | | | LAB | | + +-------+ + + + | Absolute | 5 | 2.50 - 8.50 | EXTERNAL | | | Neutrophils | | 1000/mm3 | LAB | | + +-------+ + + + | Absolute | 4.2 | 1.00 - 3.80 | EXTERNAL | | | Lymphocytes | | 1000/mm3 | LAB | | + +-------+ + + + | Absolute | 0.7 | <=1.25 1000/mm3 | EXTERNAL | | | Monocytes | | | LAB | | + +-------+ + + + | SLIDE | NO | | EXTERNAL | | | REVIEW | | | LAB | | + +-------+ + [...]
--- OUTSIDE RECORDS SUMMARY | ~2019-05-19 | XMS | Encounter Summary ---
Demographics + + + | Address | [address] | | | [place] [address] | + + + | Home Phone | | + + + | Preferred Language | Unknown | + + + | Marital Status | Single | + + + | Hoahaoism Affiliation | 1041 | + + + | Race | Unknown | + + + | Ethnic Group | Unknown | + + + Author + + + | Author | [facility] | | | and [place] | + + + | Organization | [facility] | | | and [place] | + + + | Address | Unknown | + + + | Phone | Unavailable | + + + Support + + + + + | Name | Relationship | Address | Phone | + + + + + | Jeremy Hinton | ECON | [address] | | | | | [id number] | | | | | [address] | | + + + + + Care Team Providers + +------+ + | Care Asphalt Mixing Machine Operator Name | Role | Phone | [...] HOSPITAL XRAY [address] | DO [address] [facility] | | | | | [address] | [place] [address] | | | | | [place], [place] | [phone] | | | | | [address] | | | | | | [phone] | | | +--------+ + + + [...] | + +--------+ + + + | [facility] DIGITAL | Routin | 12/06/2016 | | Results for this | | DIAGNOSTIC LEFT | e | 1:54 PM | | procedure are in the | | | | PDT | | results section. | + +--------+ + + + documented in this encounter Results [facility] Digital Diagnostic Left (12/06/2016 1:54 PM PDT) + + | Specimen | + + | | + + + + + | Narrative | Performed At | + + + | EXAMINATION: [facility] DIAG LEFT/ADD'L VIEWS HISTORY: Left breast | [...] | | suggestive for/of malignancy. JOB #: [id number] Digitally Released | | | by: Alex [...] | | | | | JOB #: [id number] | | Digitally Released by: Alex Lozano | | | | | | Read By: ALEX LOZANO MD | | Date: 12/06/2016 14:48 | | | + + documented in this encounter Visit Diagnoses Not on filedocumented in this encounter
--- OUTSIDE RECORDS SUMMARY | ~2019-05-19 | XMS | Encounter Summary ---
Demographics + + + | Address | [address] | | | [place] [address] | + + + | Home Phone | | + + + | Preferred Language | Unknown | + + + | Marital Status | Single | + + + | Sabianist Affiliation | 1041 | + + + | Race | Unknown | + + + | Ethnic Group | Unknown | + + + Author + + + | Author | [facility] | | | and [place] | + + + | Organization | [facility] | | | and [place] | + + + | Address | Unknown | + + + | Phone | Unavailable | + + + Support + + + + + | Name | Relationship | Address | Phone | + + + + + | Jeremy Hinton | ECON | [address] | | | | | [id number] | | | | | [address] | | + + + + + Care Team Providers + +------+ + | Care Application Chemist Name | Role | Phone | + [...] | | SURGERY [address] | [address] | | | | | [address], | [place], [place] | | | | | [place] [address] | [address] | | | | | [phone] | | | | | | | [...]
--- OUTSIDE RECORDS SUMMARY | ~2019-05-19 | XMS | Encounter Summary ---
Demographics + + + | Address | [address] | | | [place] [address] | + + + | Home Phone | | + + + | Preferred Language | Unknown | + + + | Marital Status | Single | + + + | Buddhist Affiliation | 1041 | + + + | Race | Unknown | + + + | Ethnic Group | Unknown | + + + Author + + + | Author | [facility] | | | and [place] | + + + | Organization | [facility] | | | and [place] | + + + | Address | Unknown | + + + | Phone | Unavailable | + + + Support + + + + + | Name | Relationship | Address | Phone | + + + + + | Jeremy Hinton | ECON | [address] | | | | | [id number] | | | | | [address] | | + + + + + Care Team Providers + +------+ + | Care Hydroelectric Operator Name | Role | Phone | + +------+ + | Idalia Rae DO | PCP | | + +------+ + Reason for Visit Auth/Cert (Routine) +--------+--------+ + + + + | Status | Reason | Specialty | Diagnoses / | Referred By | Referred To | | | | | Procedures | Contact | Contact | +--------+--------+ + + + + | | | | Diagnoses | | | | | | | Personal | | | | | | | history of | | | | | | | colonic | | | | | | | polyps | | | | | | | Procedures | | | | | | | [place] | | | | | | | COLONOSCOPY | | | | | | | FLX DX | | | | | | | W/QUYNHJ SPEC | | | | | | | WHEN PFRMD | | | +--------+--------+ + + + + Encounter Details +--------+---------+ + + + | Date | Type | Department | Care Team | Description | +--------+---------+ + + + | 12/01/ | Surgery | [place] [facility] | [place], | COLONOSCOPY | | 2018 | | [facility] | Miguel Zimmer, | | | | | [address] | [address] | | | | | [place] | [place] | | | | | [address] | [address] | | | | | [phone] | [phone] | | | | | | | | +--------+---------+ + + + Social History + +-------+ [...] + + documented as of this encounter Last Filed Vital Signs + + + + + | Vital Sign | Reading | Time Taken | Comments | + + + + + | Blood Pressure | 113/60 | 12/01/2017 11:38 AM | | | | | PDT | | + + + + + | Pulse | 71 | 12/01/2017 11:38 AM | | | | | PDT | | + + + + + | Temperature | 36 C (96.8 F) | 12/01/2017 11:38 AM | | | | | PDT | | + + + + + | Respiratory Rate | 16 | 12/01/2017 11:38 AM | | | | | PDT | | + + + + + | Oxygen Saturation | 95% | 12/01/2017 11:38 AM | | | | | PDT | | + + + + + | Inhaled Oxygen | - | - | | | Concentration | | | | + + + + + | Weight | - | - | | + + + + + | Height | - | - | | + + + + + | Body Mass Index | - | - | | + + + + + documented in this encounter Discharge Instructions Instructions Mariah Ocampo RN - 12/01/2017TO INSURE PROPER POST-SURGICAL RECOVERY, PL EASE FOLLOW THE HOME CARE INSTRUCTIONS MARKED BELOW FOLLOW-UP APPOINTMENTS: [x] No follow up appointment necessary [] Dr. Villegas's office will call you to set up a follow up appointment MEDICATIONS: [] Take a stool softener while taking narcotic pain medication . [] When taking pain medications, you may experience drowsiness. Do not drink alcohol or dr woodson while you were taking these medications. [] Do not take Tylenol with your prescribed pain medication. [] You may take Ibuprofen (600 mg every 6 hours). [] You may take Tylenol (650 mg every 6 hours). WOUND CARE & HYGIENE: [] Ice to incision 20 minutes at a time for comfort. [x] May shower today. [] Your wound has glue on it as a dressing. Do not try to remove the glue. It will fall off in about 2 weeks. [] No tub baths, swimming pools, or hot tubs until seen by physician. [] observe for color changes, increased pain, or drainage. ANESTHESIA PRECAUTIONS: [] No special precautions. [x] A responsible adult should stay with you for at least 24 hours. You may experience drowsiness, lightheadedness, or mild nausea. [x] Do not operate a vehicle (automobile, bicycle, motorcycle), machinery or power tools. Do not make important decisions or drink any alcoholic beverages for at least 24 hours. [] Children: no riding bicycles, skateboards, swings, etc. for 24 hours. DIET: [] No dietary restrictions. [x] Drink plenty of fluids and a light meal today; resume regular diet tomorrow. ACTIVITY: [] No vigorous/strenuous activity for 2 weeks. [] Limit lifting to 10 pounds for the next 6 weeks. [] Resume normal activities in 24 hours. ADDITIONAL INSTRUCTIONS: REPORT ANY OF THE FOLLOWING SYMPTOMS TO YOUR SURGEON IMMEDIATELY: ? Fever over 101F by mouth ? Excessive bleeding. ? Pain not improved by medication ordered. ? Numb, tingling or cold fingers or toes. ? Increased redness, swelling or foul odor from surgical site. ? Inability to urinate. ? Difficulty breathing. ? Persistent nausea/vomiting. IF UNABLE TO REACH THE SURGEON AND YOUR SYMPTOMS ARE WORSENING, GO TO THE NEAREST EMERGENCY ROOM A follow-up call will be attempted by an Outpatient Surgery Nurse in 24-48 hours to check y our progress. If you have any questions, call your physician at or [phone]. If you need assistance after normal business hours, please contact the [facility] at . documented in this encounter Medications at Time of Discharge + + + +---------+ + + | Medication | Sig | Dispensed | Refills | Start | End Date | | | | | | Date | | + + + +---------+ + + | raNITIdine | Take 75 mg by mouth | | 0 | | | | (RANITIDINE ACID | 2 times daily. | | | | | | ASPHALT TILE FLOOR LAYER) 75 MG | | | | | | | tablet | | | | | | + + + +---------+ + + | atorvaSTATin | Take 1 tablet by | 30 | 11 | 09/15/19 | | | (LIPITOR) 10 mg | mouth nightly. | tablet | | 18 | 8 | | tablet | | | | | | + + + +---------+ + + | Cholecalciferol | Take 1 tablet by | 16 | 0 | 09/15/19 | | | (VITAMIN D3) 98751 | mouth Once a week | tablet | | 18 | 8 | | units TABS | for 16 doses. | | | | | + + + +---------+ + + | ergocalciferol | Take 50,000 Units by | | 0 | | | | (VITAMIN D-2) 50,000 | mouth Once a week. | | | | 8 | | units capsule | | | | | | + + + +---------+ + + | levothyroxine | Take 75 mcg daily | 90 | 3 | 09/15/19 | | | (SYNTHROID) 75 MCG | | tablet | | 18 | 9 | | tablet | | | | | | + + + +---------+ + + documented as of this encounter Plan of Treatment + + +--------+ + + | Name | Type | Priori | Associated Diagnoses | Order Schedule | | | | ty | | | + + +--------+ + + | Surgical Pathology | Pathology | Routin | | One Time for 1 | | Exam | and | e | | Occurrences starting | | | Cytology | | | 12/01/2017 until | | | | | | 12/01/2017 | + + +--------+ + + documented as of this encounter Procedures + +--------+ + + + | Procedure Name | Priori | Date/Time | Associated Diagnosis | Comments | | | ty | | | | + +--------+ + + + | COLONOSCOPY | | 12/01/2017 | Unknown | | | | | 10:12 AM | | | | | | PDT | | | + +--------+ + + + | SURGICAL PATHOLOGY | Routin | 12/01/2017 | | Results for this | | EXAM | e | 12:00 AM | | procedure are in the | | | | PDT | | results section. | + +--------+ + + + documented in this encounter Results Surgical Pathology Exam (12/01/2017 12:00 AM PDT) + + | Specimen | + + | | + + + + + | Narrative | Performed At | + + + | SPECIMEN(S): A SIGMOID POLYP SPECIMEN SOURCE: A. SIGMOID POLYP | [facility] | | CLINICAL HISTORY: Colonoscopy. MICROSCOPIC DESCRIPTION: | [facility] | | Histologic sections of all submitted blocks are examined by light | | | microscopy. These findings, together with the gross examination, | | | support the pathologic diagnosis. FINAL PATHOLOGIC DIAGNOSIS: | | | Sigmoid polyp, recurrent, biopsy: - Tubular adenoma. | | | NRT:cml:C2NR GROSS DESCRIPTION: Received in a formalin-filled | | | container labeled with the patient's name Tangela Hinton, date of | | | 1955 and additionally labeled "sigmoid polyp" are multiple | | | irregularly shaped fragments of pale king soft tissue measuring 0.6 x | | | 0.5 x 0.3 cm in aggregate. The specimen is entirely submitted between | | | sponges in a single cassette (A1). na:LJA:cml PERFORMING | | | LABORATORY: The technical component was performed by [facility] | | | [facility], [address] [facility] [place] | | | [place], [place] [address] (Product Development Actuary: Benji Scott MD; CLIA# | | | [id number]). Professional interpretation was performed by [facility] | | | [facility], [address], [address], [place] | | | [place] [address] (Product Development Actuary: Benji Scott MD; CLIA# | | | [id number]). Diagnostician: Jenna Mckeon MD Pathologist | | | Electronically Signed 12/05/2017 | | + + + + +---------+ + + | Performing | Address | City/State/Zipcode | Phone Number | | Organization | | | | + +---------+ + + | [facility] | | | | | [facility] | | | | + +---------+ + + documented in this encounter Visit Diagnoses Not on filedocumented in this encounter Administered Medications + +---------+ +------+-------+------+ | Medication Order | MAR | Action | Dose | Rate | Site | | | Action | Date | | | | + +---------+ +------+-------+------+ | lactated ringers (LR) infusion | New Bag | 05/25/20 | | 100 | | | at 10-100 mL/hr, Intravenous, | | 18 8:36 | | mL/hr | | | CONTINUOUS, Starting 12/01/17 | | AM PDT | | | | | at 0845, IV in left arm for | | | | | | | cataract please., Pre-op | | | | | | + +---------+ +------+-------+------+ +---+---+ | | | +---+---+ documented in this encounter
--- OUTSIDE RECORDS SUMMARY | ~2019-05-19 | XMS | Encounter Summary ---
Demographics + + + | Address | [address] | | | [place] [address] | + + + | Home Phone | | + + + | Preferred Language | Unknown | + + + | Marital Status | Single | + + + | Rastafari Affiliation | 1041 | + + + | Race | Unknown | + + + | Ethnic Group | Unknown | + + + Author + + + | Author | [facility] | | | and [place] | + + + | Organization | [facility] | | | and [place] | + + + | Address | Unknown | + + + | Phone | Unavailable | + + + Support + + + + + | Name | Relationship | Address | Phone | + + + + + | Jeremy Hinton | ECON | [address] | | | | | [id number] | | | | | [address] | | + + + + + Care Team Providers + +------+ + | Care Quail Farmer Name | Role | Phone | + +------+ + | Idalia Rae DO | PCP | | + +------+ + Encounter Details +--------+ + + + + | Date | Type | Department | Care Team | Description | +--------+ + + + + | 12/28/ | Hospital | [place] [facility] | Idalia Rae, | Hand pain, right | | 2018 | Encounter | HOSPITAL XRAY [address] | DO [address] | | | | | [address] | [place] [address] | | | | | [place], [place] | [phone] | | | | | [address] | | | | | | [phone] | | | +--------+ + + + [...] + + documented as of this encounter Medications at Time of Discharge [...] daily. | | | | | | DIRECTOR RECORDS MANAGEMENT) 75 MG | | | | | | | tablet | | | | | | + + + +---------+ + + | Cholecalciferol | Take 1 tablet by | 16 | 0 | 03/08/20 | | | (VITAMIN D3) 76437 | mouth Once a week | tablet | | 18 | 8 | | units TABS | for 16 doses. | | | | | + + + +---------+ + + | fluconazole | Take 1 tablet by | 3 | 1 | 12/29/19 | | | (DIFLUCAN) 150 mg | mouth Daily for 3 | tablet | | 18 | 8 | | tablet | doses. | | | | | + [...] | + +--------+ + + + | XR HAND RIGHT 3 + VW | Routin | 12/28/2017 | Hand pain, right | Results for this | | | e | 12:06 PM | | procedure are in the | | | | PDT | | results section. | + +--------+ + + + documented in this encounter Results XR Hand Right 3 + Vw (12/28/2017 12:06 PM PDT) + + | Specimen | + + | | + + + + + | Impressions | Performed At | + + + | IMPRESSION: 1. No acute bone process is identified. 2. If area of | [facility] | | palpable concern persists, MRI with contrast is recommended for | | | further evaluation. Dictated by: Saleem Preciado Electronically | | | Signed by: Saleem Preciado on 12/28/2017 1:36 PM | | + + + + + + | Narrative | Performed At | + + + | EXAMINATION: XR HAND RIGHT 3 + VW HISTORY: painful lump right | [facility] | | hand COMPARISON STUDY: None FINDINGS: Films in multiple | | | projections show mild joint space narrowing of the 5th DIP joint and | | | 1st MCP joint. No acute fracture. No subluxation. No | | | dislocation. Soft tissues are unremarkable. Age appropriate bone | | | mineral density. | | + + + + + | Procedure Note | + + | Kirk, Rad Results In - 12/28/2017 1:40 PM PDT EXAMINATION:XR HAND RIGHT 3 + | | VWHISTORY:painful lump right handCOMPARISON STUDY:NoneFINDINGS:Films in multiple | | projections show mild joint space narrowing of the 5th DIP joint and 1st MCP joint. No | | acute fracture. No subluxation. No dislocation. Soft tissues are unremarkable. Age | | appropriate bone mineral density.IMPRESSION: IMPRESSION:1. No acute bone process is | | identified.2. If area of palpable concern persists, MRI with contrast is recommended for | | further evaluation.Dictated by: Saleem Leectronically Signed by: Saleem Preciado | | on 12/28/2017 1:36 PM | | | |FINDINGS: | |Films in multiple projections show mild joint space narrowing of the 5th DIP joint and 1st MCP joint. No acute fracture. No subluxation. No dislocation. Soft tissues are unremarka ble. Age appropriate bone mineral density. | | | |IMPRESSION: | |IMPRESSION: | |1. No acute bone process is identified. | |2. If area of palpable concern persists, MRI with contrast is recommended for further evalu ation. | | | |Dictated by: Saleem Preciado | | | | | + + + +---------+ + + | Performing | Address | City/State/Zipcode | Phone Number | | Organization | | | | + +---------+ + + | [facility] | | | | + +---------+ + + documented in this encounter Visit Diagnoses + + | Diagnosis | + + | Hand pain, right Pain in limb | + + documented in this encounter"
--- OUTSIDE RECORDS SUMMARY | ~2019-05-19 | XMS | Encounter Summary ---
Demographics + + + | Address | [address] | | | [place] [address] | + + + | Home Phone | | + + + | Preferred Language | Unknown | + + + | Marital Status | Single | + + + | Restorationism Affiliation | 1041 | + + + | Race | Unknown | + + + | Ethnic Group | Unknown | + + + Author + + + | Author | [facility] | | | and [place] | + + + | Organization | [facility] | | | and [place] | + + + | Address | Unknown | + + + | Phone | Unavailable | + + + Support + + + + + | Name | Relationship | Address | Phone | + + + + + | Jeremy Hinton | ECON | [address] | | | | | [id number] | | | | | [address] | | + + + + + Care Team Providers + +------+ + | Care Toe Former Stitchdowns Name | Role | Phone | + [...] | 2018 | | [facility] | ASSISTANT DEPARTMENT MANAGER | | | | | MEDICAL CLINIC [address] | | | | | | [address] [facility] [place], | | | | | | [place] [address] | | | | | | [phone] | | | +--------+ + + + [...]
--- OUTSIDE RECORDS SUMMARY | ~2019-05-19 | XMS | Encounter Summary ---
Demographics + + + | Address | [address] | | | [place] [address] | + + + | Home Phone | | + + + | Preferred Language | Unknown | + + + | Marital Status | Single | + + + | Lutheran Affiliation | 1041 | + + + | Race | Unknown | + + + | Ethnic Group | Unknown | + + + Author + + + | Author | [facility] | | | and [place] | + + + | Organization | [facility] | | | and [place] | + + + | Address | Unknown | + + + | Phone | Unavailable | + + + Support + + + + + | Name | Relationship | Address | Phone | + + + + + | Jeremy Hinton | ECON | [address] | | | | | [id number] | | | | | [address] | | + + + + + Care Team Providers + +------+ + | Care Steel Fixer Name | Role | Phone | + [...] | 2018 | | [facility] | OUTSIDE PRODUCTION INSPECTOR | | | | | MEDICAL CLINIC [address] | | | | | | [address] [facility] [place], | | | | | | [place] [address] | | | | | | [phone] | | | +--------+ + + + [...]
--- OUTSIDE RECORDS SUMMARY | ~2019-05-19 | XMS | Encounter Summary ---
Demographics + + + | Address | [address] | | | [place] [address] | + + + | Home Phone | | + + + | Preferred Language | Unknown | + + + | Marital Status | Single | + + + | Jainism Affiliation | 1041 | + + + | Race | Unknown | + + + | Ethnic Group | Unknown | + + + Author + + + | Author | [facility] | | | and [place] | + + + | Organization | [facility] | | | and [place] | + + + | Address | Unknown | + + + | Phone | Unavailable | + + + Support + + + + + | Name | Relationship | Address | Phone | + + + + + | Jeremy Hinton | ECON | [address] | | | | | [id number] | | | | | [address] | | + + + + + Care Team Providers + +------+ + | Care Human Resources Generalist Name | Role | Phone | + [...] | | SURGERY [address] | [address] | | | | | [address], | [place], [place] | | | | | [place] [address] | [address] | | | | | [phone] | | | | | | | [...]
--- OUTSIDE RECORDS SUMMARY | ~2019-05-19 | XMS | Encounter Summary ---
Demographics + + + | Address | [address] | | | [place] [address] | + + + | Home Phone | | + + + | Preferred Language | Unknown | + + + | Marital Status | Single | + + + | Mosque Affiliation | 1041 | + + + | Race | Unknown | + + + | Ethnic Group | Unknown | + + + Author + + + | Author | [facility] | | | and [place] | + + + | Organization | [facility] | | | and [place] | + + + | Address | Unknown | + + + | Phone | Unavailable | + + + Support + + + + + | Name | Relationship | Address | Phone | + + + + + | Jeremy Hinton | ECON | [address] | | | | | [id number] | | | | | [address] | | + + + + + Care Team Providers + +------+ + | Care Battery Checker Name | Role | Phone | + +------+ + | Idalia Rae DO | PCP | | + +------+ + Reason for Visit + + + | Reason | Comments | + + + | Results, Pathology | BIOPSY RESULTS | + + + Encounter Details +--------+ + + + + | Date | Type | Department | Care Team | Description | +--------+ + + + + | 06/30/ | Telephone | [facility] | Idalia Rae, | Results, Pathology | | 2017 | | [facility] | DO [address] | (BIOPSY RESULTS) | | | | MEDICAL CLINIC [address] | [place] [address] | | | | | [address] [place], | [phone] | | | | | [place] [address] | | | | | | [phone] | | | +--------+ + + + [...]
--- OUTSIDE RECORDS SUMMARY | ~2019-05-19 | XMS | Encounter Summary ---
Demographics + + + | Address | [address] | | | [place] [address] | + + + | Home Phone | | + + + | Preferred Language | Unknown | + + + | Marital Status | Single | + + + | Amish Affiliation | 1041 | + + + | Race | Unknown | + + + | Ethnic Group | Unknown | + + + Author + + + | Author | [facility] | | | and [place] | + + + | Organization | [facility] | | | and [place] | + + + | Address | Unknown | + + + | Phone | Unavailable | + + + Support + + + + + | Name | Relationship | Address | Phone | + + + + + | Jeremy Hinton | ECON | [address] | | | | | [id number] | | | | | [address] | | + + + + + Care Team Providers + +------+ + | Care Stone Processing Machine Operator Name | Role | Phone | + +------+ + | Idalia Rae DO | PCP | | + +------+ + Reason for Visit + + + | Reason | Comments | + + + | Medication Refill | | + + + Encounter Details +--------+--------+ + + + | Date | Type | Department | Care Team | Description | +--------+--------+ + + + | 07/26/ | Refill | [facility] | Idalia Rae, | Medication Refill | | 2018 | | [facility] | [address] | | | | | MEDICAL CLINIC [address] | [place] [address] | | | | | [address] [place], | [phone] | | | | | [place] [address] | | | | | | [phone] | | | +--------+--------+ + + + Social History + +-------+ [...] + | Diagnosis | + + | Hypothyroidism, unspecified type - Primary | + + documented in this encounter"
--- OUTSIDE RECORDS SUMMARY | ~2019-05-19 | XMS | Encounter Summary ---
Demographics + + + | Address | [address] | | | [place] [address] | + + + | Home Phone | | + + + | Preferred Language | Unknown | + + + | Marital Status | Single | + + + | Caodaism Affiliation | 1041 | + + + | Race | Unknown | + + + | Ethnic Group | Unknown | + + + Author + + + | Author | [facility] | | | and [place] | + + + | Organization | [facility] | | | and [place] | + + + | Address | Unknown | + + + | Phone | Unavailable | + + + Support + + + + + | Name | Relationship | Address | Phone | + + + + + | Jeremy Hinton | ECON | [address] | | | | | [id number] | | | | | [address] | | + + + + + Care Team Providers + +------+ + | Care Advertising Operations Coordinator Name | Role | Phone | + +------+ + | Idalia Rae DO | PCP | | + +------+ + Reason for Visit +--------+ + | Reason | Comments | +--------+ + | Other | multiple | +--------+ + Encounter Details +--------+---------+ + + + | Date | Type | Department | Care Team | Description | +--------+---------+ + + + | 12/28/ | Office | [place] [facility] | Idalia Rae, | Acquired | | 2018 | Visit | [facility] | DO [address] | hypothyroidism | | | | [facility] | [place] [address] | (Primary Dx); Other | | | | [address] [place], | [phone] | hyperlipidemia; | | | | [place] [address] | | Vitamin D | | | | [phone] | | deficiency; Hand | | | | | | pain, right; Vaginal | | | | | | clarice | +--------+---------+ + + + Social History [...] + + + | Blood Pressure | 140/74 | 12/28/2017 11:12 AM | | | | | PDT | | + + + + + | Pulse | 92 | 12/28/2017 11:12 AM | | | | | PDT | | + + + + + | Temperature | - | - | | + + + + + | Respiratory Rate | 16 | 12/28/2017 11:12 AM | | | | | PDT | | + + + + + | Oxygen Saturation | 96% | 12/28/2017 11:12 AM | | | | | PDT | | + + + + + | Inhaled Oxygen | - | - | | | Concentration | | | | + + + + + | Weight | 77.4 kg (170 lb 9.6 | 12/28/2017 11:12 AM | | | | oz) | PDT | | + + + + + | Height | 144.8 cm (4' 9") | 12/28/2017 11:12 AM | | | | | PDT | | + + + + + | Body Mass Index | 36.92 | 12/28/2017 11:12 AM | | | | | PDT | | + + + + + documented in this encounter Progress Idalia Santos DO - 12/28/2017 11:00 AM PDTFormatting of this note might be different fro m the original. Subjective: Patient ID: Tangela Hinton is a 62 y.o. female. Here to have cholesterol, thyroid and vitamin D rechecked. She has worked on diet and exerc ise and wants to correct cholesterol that way instead of with meds if she can. She has comp leted 4 months of vitamin d for her low level and due to recheck this and had a dose change on her thyroid med. She does feel good today. States does like to run the thyroid dose high range of normal, feels better with this. New issues today is a lump in the middle of her rig ht hand that started a month ago. Area is tender. No redness or injury that she is aware of. States may have hit it an popped a vessel in the area and may have been sl blue when first started but she is not sure about that. Also, has a vaginal yeast infection with itch, yeas t odor and white discharge. States has had one before. Has done more walking and getting swe aty that contributed to the cause of the yeast infection. Has not tried any Tx. Review of Systems Constitutional: Negative. Respiratory: Negative. Cardiovascular: Negative. Gastrointestinal: Negative. Endocrine: Negative. Genitourinary: Yeast vaginal infection as above Skin: Hand lump as above Social History Social History Marital status: Single Spouse name: N/A Number of children: N/A Years of education: N/A Occupational History Not on file. Social History Main Topics Smoking status: Never Smoker Smokeless tobacco: Never Used Alcohol use Yes Comment: rare Drug use: No Sexual activity: Not Currently Other Topics Concern Not on file Social History Narrative No narrative on file Outpatient Encounter Prescriptions as of 12/28/2017 Medication Sig Dispense Refill [DISCONTINUED] atorvaSTATin (LIPITOR) 10 mg tablet Take 1 tablet by mouth nightly. (Pat ient not taking: Reported on 10/05/2017) 30 tablet 11 Cholecalciferol (VITAMIN D3) 49510 units TABS Take 1 tablet by mouth Once a week for 16 doses. 16 tablet 0 [DISCONTINUED] ergocalciferol (VITAMIN D-2) 50,000 units capsule Take 50,000 Units by m outh Once a week. fluconazole (DIFLUCAN) 150 mg tablet Take 1 tablet by mouth Daily for 3 doses. 3 tablet 1 levothyroxine (SYNTHROID) 75 MCG tablet Take 75 mcg daily 90 tablet 3 raNITIdine (RANITIDINE ACID MEMBER SERVICE SPECIALIST) 75 MG tablet Take 75 mg by mouth 2 times daily. No facility-administered encounter medications on file as of 12/28/2017. Allergies Allergen Reactions Sulfa Antibiotics Objective: BP 140/74 | Pulse 92 | Resp 16 | Ht 1.448 m (4' 9") | Wt 77.4 kg (170 lb 9.6 oz) | LMP (LMP Unknown) | SpO2 96% | ? No | BMI 36.92 kg/m Physical Exam Constitutional: She is oriented to person, place, and time. She appears well-developed and well-nourished. No distress. HENT: Head: Normocephalic and atraumatic. Right Ear: External ear normal. Left Ear: External ear normal. Mouth/Throat: Oropharynx is clear and moist. Eyes: Conjunctivae and EOM are normal. Pupils are equal, round, and reactive to light. Righ t eye exhibits no discharge. Left eye exhibits no discharge. No scleral icterus. Neck: Normal range of motion. Neck supple. No thyromegaly present. Cardiovascular: Normal rate, regular rhythm and normal heart sounds. Exam reveals no العراقي p and no friction rub. No murmur heard. Pulmonary/Chest: Effort normal and breath sounds normal. No respiratory distress. Abdominal: Soft. There is no tenderness. Musculoskeletal: Normal range of motion. Neurological: She is alert and oriented to person, place, and time. Skin: Skin is warm and dry. Mid palm of the right hand is a moveable pea size lump with no redness, no bruising no drng . Is deep set. Psychiatric: She has a normal mood and affect. Her behavior is normal. Judgment and thought content normal. Assessment: 1. Acquired hypothyroidism TSH 2. Other hyperlipidemia Lipid Panel Comprehensive Metabolic Panel 3. Vitamin D deficiency Vitamin D, Deficiency Screen (25-Hydroxy) 4. Hand pain, right XR Hand Right 2 Vw 5. Vaginal clarice Plan: Lab,TSH, Vitamin d level, Lipid panel and CMP. Diflucan 150 mg orally X 3 days with one ref ill for the yeast infection. Xray the hand is a cyst vs a broken blood vessel area though n o blue tint to the area. documented in this en counter Plan of Treatment Not on filedocumented as of this encounter Procedures + +--------+ + + + | Procedure Name | Priori | Date/Time | Associated Diagnosis | Comments | | | ty | | | | + +--------+ + + + | VITAMIN D, | Routin | 12/28/2017 | Vitamin D | Results for this | | DEFICIENCY SCREEN | e | 11:40 AM | deficiency | procedure are in the | | (25-HYDROXY) | | PDT | | results section. | + +--------+ + + + documented in this encounter Results Comprehensive Metabolic Panel (12/28/2017 11:40 AM PDT) + + + + + + | Component | Value | Ref Range | Performed | Pathologist | | | | | At | Signature | + + + + + + | Na | 141 | 132 - 143 | [place] | | | | | mmol/L | [facility] | | | | | | [facility] | | | | | | [facility] | | + + + + + + | K | 3.8 | 3.3 - 4.9 | [place] | | | | | mmol/L | [facility] | | | [facility] | | | | | | [facility] | | | | | | [facility] | | + + + + + + | Cl | 104 | 95 - 108 mmol/L | [place] | | | | | | [facility] | | | | | [facility] | | | | | | [facility] | | | | | | [facility] | | + + + + + + | CO2 | 28 | 23 - 34 mmol/L | [place] | | | | | | [facility] | | | | [facility] | | | | | | [facility] | | | | | | [facility] | | + + + + + + | Anion Gap | 9 | 7 - 16 mmol/L | [place] | | | | | | [facility] | [facility] | | | | | | [facility] | | | | | | [facility] | | + + + + + + | Glucose | 98 | 70 - 110 mg/dL | [place] | | | | | | [facility] | [facility] | [facility] | | | | | | [facility] | | | | | | [facility] | | + + + + + + | BUN | 19 | 5 - 26 mg/dL | [place] | | | | | | [facility] | [facility] | [facility] | | | | | | [facility] | | | | | | [facility] | | + + + + + + | Creatinine | 0.91 | 0.70 - 1.40 | [place] | | | | | mg/dL | [facility] | | | | | | [facility] | | | | | | [facility] | | | | | | [facility] | | + + + + + + | eGFR if not | >60Comment: GLOMERULAR | >=60 | [place] | | | | FILTRATION | mL/min/1.73m2 | [facility] | | | DANISH | RATE,ESTIMATED | | [facility]OS[facility] | | | | mL/min/1.66q7Yuja than | | REGIONAL | | | | 60 Chronic kidney | | MEDICAL | | | | disease,if found over a | | CENTER LAB | | | | 3-month period.Less than | | | | | | 15 Kidney failureFor | | | | | | | | | | | | Americans,multiply the | | | | | | calculated GFR by 1.21. | | | | | | | | | | + + + + + + | Calcium | 9.0 | 8.3 - 10.0 | [place] | | | | | mg/dL | [facility] | | | | | | [facility] | | | | | | [facility] | | | | | | [facility] | | + + + + + + | Albumin | 3.8 | 3.0 - 4.5 g/dL | [place] | | | | | | [facility] | | | | | [facility] | | | | | | [facility] | | | | | | [facility] | | + + + + + + | Bilirubin | 0.5 | 0.0 - 1.2 mg/dL | [place] | | | Total | | | [facility] | | | | | | [facility] | | | | | | [facility] | | | | | | [facility] | | + + + + + + | Total | 7.8 | 6.6 - 8.5 g/dL | [place] | | | Protein | | | [facility] | | | | | | [facility] | | | | | | [facility] | | | | | | [facility] | | + + + + + + | AST | 16 | 0 - 38 U/L | [place] | | | | | | [facility] | | | | | [facility] | | | | | | [facility] | | | | | | [facility] | | + + + + + + | ALT | 26 | 14 - 59 U/L | [place] | | | | | | [facility] | | [facility] | | | [facility] | | | | | | [facility] | | | | | | [facility] | | + + + + + + | Alkaline | 70 | 46 - 116 U/L | [place] | | | Phosphatase | | | [facility] | | | | | [facility] | | | | | | [facility] | | | | | | [facility] | | + + + + + + | Globulin | 4.0 | g/dL | [place] | | | | | | [facility] | | | | | | [facility] | | | | | | [facility] | | | | | | [facility] | | + + + + + + | Albumin/Marium | 1.0 | | [place] | | | bulin Ratio | | | [facility] | | | | | | [facility] | | | | | | [facility] | | | | | | [facility] | | + + + + + + | BUN/Creatin | 20.9 | 7.0 - 24.0 | [place] | | | ine Ratio | | | [facility] | | | | | | [facility] | | | | | | [facility] | | | | | | [facility] | | + + + + + + | Fasting? | Yes | | [place] | | | | | | [facility] | | | | | | [facility] | | | | | | [facility] | | | | | | [facility] | | + + + + + + + + | Specimen | + + | Blood | + + + + + + + | Performing | Address | City/State/Zipcode | Phone Number | | Organization | | | | + + + + + | [facility] | [address] | [place] [address] | [phone] | | [facility] | | | | | [facility] | | | | + + + + + Vitamin D, Deficiency Screen (25-Hydroxy) (12/28/2017 11:40 AM PDT) + +-------+ + + + | Component | Value | Ref Range | Performed | Pathologist | | | | | At | Signature | + +-------+ + + + | Vitamin D, | 62 | 30 - 100 ng/mL | [place] | | | 25 Hydroxy | | | [facility] | | | | | | [facility] | | + +-------+ + + + + + | Specimen | + + | Blood | + + + + + + + | Performing | Address | City/State/Zipcode | Phone Number | | Organization | | | | + + + + + | [facility] | [address] | [place] [address] | [phone] | | [facility] | | | | + + + + + TSH (12/28/2017 11:40 AM PDT) + +-------+ + + + | Component | Value | Ref Range | Performed | Pathologist | | | | | At | Signature | + +-------+ + + + | TSH | 0.39 | 0.36 - 3.74 | [place] | | | | | uIU/mL | [facility] | | | | | [facility] | | | | | [facility] | | | | | | [facility] | | + +-------+ + + + + + | Specimen | + + | Blood | + + + + + + + | Performing | Address | City/State/Zipcode | Phone Number | | Organization | | | | + + + + + | [facility] | [address] | [place] [address] | [phone] | | [facility] | | | | | [facility] | | | | + + + + + Lipid Panel (12/28/2017 11:40 AM PDT) + + + + + + | Component | Value | Ref Range | Performed | Pathologist | | | | | At | Signature | + + + + + + | Triglycerid | 163 | 30 - 200 mg/dL | [place] | | | es | | | [facility] | | | | | | [facility] | | | | | | [facility] | | | | | | [facility] | | + + + + + + | Cholesterol | 221 (H) | 0 - 200 mg/dL | [place] | | | | | | [facility] | | | | | | [facility] | | | | | | [facility] | | | | | | [facility] | | + + + + + + | HDL | 57 | >=40 mg/dL | [place] | | | | | | [facility] | | | | | | [facility] | | | | | | [facility] | | | | | | [facility] | | + + + + + + | Chol/HDL | 3.9 | | [place] | | | Ratio | | | [facility] | | | | | | [facility] | | | | | | [facility] | | | | | | [facility] | | + + + + + + | LDL, | 131Comment: LDL | <=150 mg/dL | [place] | | | Calculated | reference range: | | [facility] | | | | < 100 mg/dL | | [facility] | | | | [id number] - 129 mg/dL | | [facility] | | | | Near [id number] - | | MEDICAL | | | | 159 mg/dL | | CENTER LAB | | | | [id number] - 189 | | | | | | mg/dL High | | | | | | > 190 mg/dL Very | | | | | | High | | | | + + + + + + | Fasting? | Yes | | [place] | | | | | | [facility] | | | | | | [facility] | | | | | | [facility] | | | | | | [facility] | | + + + + + + + + | Specimen | + + | Blood | + + + + + | Narrative | Performed At | + + + | Fasting 15 hrs | [facility] [facility] | | | [facility] | | | [facility] | [facility] | | | LAB | + + + + + + + + | Performing | Address | City/State/Zipcode | Phone Number | | Organization | | | | + + + + + | [facility] | [address] | [place] [address] | [phone] | | [facility] | | | | | [facility] | | | | + + + + + documented in this encounter Visit Diagnoses + + | Diagnosis | + + | Acquired hypothyroidism - Primary Unspecified hypothyroidism | + + | Other hyperlipidemia | + + | Vitamin D deficiency Unspecified vitamin D deficiency | + + | Hand pain, right Pain in limb | + + | Vaginal clarice Candidiasis of vulva and vagina | + + documented in this encounter
--- OUTSIDE RECORDS SUMMARY | ~2019-05-19 | XMS | Encounter Summary ---
Demographics + + + | Address | [address] | | | [place] [address] | + + + | Home Phone | | + + + | Preferred Language | Unknown | + + + | Marital Status | Single | + + + | Jew Affiliation | 1041 | + + + [...] | Jeremy Hinton | ECON | [address] | | | | | [id number] | | | | | [address] | | + + + + + Care Team Providers + +------+ + | Care Coverage Specialist Name | Role | Phone | + [...] | | | [facility] [address] | [place] [address] | | | | | [address] [place], | [phone] | | | | | [place] [address] | | | | | | [phone] | | | +--------+ + + + [...]
--- OUTSIDE RECORDS SUMMARY | ~2019-05-19 | XMS | Encounter Summary ---
Demographics + + + | Address | [address] | | | [place] [address] | + + + | Home Phone | | + + + | Preferred Language | Unknown | + + + | Marital Status | Single | + + + | Confucianist Affiliation | 1041 | + + + [...] | Jeremy Hinton | ECON | [address] | | | | | [id number] | | | | | [address] | | + + + + + Care Team Providers + +------+ + | Care Automatic Clipper And Stripper Name | Role | Phone | + [...] deficiency | | 2018 | | [facility] | DO [address] | | | | | [facility] [address] | [place] [address] | | | | | [address] [place], | [phone] | | | | | [place] [address] | | | | | | [phone] | | | +--------+ + + + [...]
--- OUTSIDE RECORDS SUMMARY | ~2019-05-19 | XMS | Encounter Summary ---
Demographics + + + | Address | [address] | | | [place] [address] | + + + | Home Phone | | + + + | Preferred Language | Unknown | + + + | Marital Status | Single | + + + | Adventist Affiliation | 1041 | + + + | Race | Unknown | + + + | Ethnic Group | Unknown | + + + Author + + + | Author | [facility] | | | and [place] | + + + | Organization | [facility] | | | and [place] | + + + | Address | Unknown | + + + | Phone | Unavailable | + + + Support + + + + + | Name | Relationship | Address | Phone | + + + + + | Jeremy Hinton | ECON | [address] | | | | | [id number] | | | | | [address] | | + + + + + Care Team Providers + +------+ + | Care Communications Equipment Supervisor Name | Role | Phone | + +------+ + | Idalia Rae DO | PCP | | + +------+ + Reason for Visit + + + | Reason | Comments | + + + | ABN Follow-Up | | + + + Encounter Details +--------+ + + + + | Date | Type | Department | Care Team | Description | +--------+ + + + + | 05/31/ | Telephone | [facility] | Idalia Rae, | ABN Follow-Up | | 2017 | | [facility] | DO [address] | | | | | MEDICAL CLIN[facility] [address] | [facility] [address] | | | | | [address] [place], | [phone] | | | | | [place] [address] | | | | | | [phone] | | | +--------+ + + + [...]
--- OUTSIDE RECORDS SUMMARY | ~2019-05-19 | XMS | Encounter Summary ---
Demographics + + + | Address | [address] | | | [place] [address] | + + + | Home Phone | | + + + | Preferred Language | Unknown | + + + | Marital Status | Single | + + + | Yarsani Affiliation | 1041 | + + + | Race | Unknown | + + + | Ethnic Group | Unknown | + + + Author + + + | Author | [facility] | | | and [place] | + + + | Organization | [facility] | | | and [place] | + + + | Address | Unknown | + + + | Phone | Unavailable | + + + Support + + + + + | Name | Relationship | Address | Phone | + + + + + | Jeremy Hinton | ECON | [address] | | | | | [id number] | | | | | [address] | | + + + + + Care Team Providers + +------+ + | Care Chemistry Department Chair Name | Role | Phone | + +------+ + PCP | Unavailable | + +------+ + Encounter Details +--------+ + + + + | Date | Type | Department | Care Team | Description | +--------+ + + + + | 12/15/ | [facility] | Anne Bailey | | | 2016 | Encounter | [facility] | [address] | | | | | [address] | [address] [place], | | | | | [place], [place] | [place] [address] | | | | | [address] | [phone] | | | | | [phone] | | | +--------+ + + + [...]
--- OUTSIDE RECORDS SUMMARY | ~2019-05-19 | XMS | Encounter Summary ---
Demographics + + + | Address | [address] | | | [place] [address] | + + + | Home Phone | | + + + | Preferred Language | Unknown | + + + | Marital Status | Single | + + + | Alevism Affiliation | 1041 | + + + | Race | Unknown | + + + | Ethnic Group | Unknown | + + + Author + + + | Author | [facility] | | | and [place] | + + + | Organization | [facility] | | | and [place] | + + + | Address | Unknown | + + + | Phone | Unavailable | + + + Support + + + + + | Name | Relationship | Address | Phone | + + + + + | Jeremy Hinton | ECON | [address] | | | | | [id number] | | | | | [address] | | + + + + + Care Team Providers + +------+ + | Care Side Laster Staple Name | Role | Phone | + [...] | | | | | | [place] [address] | | | | | | [phone] | | | +--------+ + + + [...]
--- OUTSIDE RECORDS SUMMARY | ~2019-05-19 | XMS | Encounter Summary ---
Demographics + + + | Address | [address] | | | [place] [address] | + + + | Home Phone | | + + + | Preferred Language | Unknown | + + + | Marital Status | Single | + + + | Yazdanism Affiliation | 1041 | + + + | Race | Unknown | + + + | Ethnic Group | Unknown | + + + Author + + + | Author | [facility] | | | and [place] | + + + | Organization | [facility] | | | and [place] | + + + | Address | Unknown | + + + | Phone | Unavailable | + + + Support + + + + + | Name | Relationship | Address | Phone | + + + + + | Jeremy Hinton | ECON | [address] | | | | | [id number] | | | | | [address] | | + + + + + Care Team Providers + +------+ + | Care Billboard Erector Helper Name | Role | Phone | + [...] | | | | | | | MI | | | | | | | COLONOSCOPY | | | | | | | FLX DX | | | | | | | W/COLLJ SPEC | | | | | | | WHEN PFRMD | | | +--------+--------+ + + + + Encounter Details +--------+ + + + + | Date | Type | Department | Care Team | Description | +--------+ + + + + | 12/01/ | Hospital | [facility] [facility] | [place], | | | 2018 | Encounter | [facility] | Miguel Zimmer, | | | | | [address] | [address] | | | | | [place] | [place] | | | | | [address] | [address] | | | | | [phone] | [phone] | | | | | | | [...] No follow up appointment necessary [] Dr. Vlilegas's office will call you to set up [...] any questions, call your physician at or . If you need assistance after normal business hours, please contact the [facility] at . documented in this encounter [...] daily. | | | | | | COCKTAIL WAITRESS) 75 MG | | | | | [...] | 09/15/19 | | | (VITAMIN D3) 08818 | mouth Once a week | tablet [...] | sponges in a single cassette (A1). na:LJA:annette PERFORMING | | | LABORATORY: The technical component was performed by [facility] | | | [facility], [address] [place] | | | [place], [place] [address] (Php Lamp Developer: Benji Scott MD; CLIA# | | | [id number]). Professional interpretation was performed by [facility] | | | [facility], [address], [address], [place] | | | [place] [address] (Php Lamp Developer: Benji Scott MD; CLIA# | | | [id number]). Diagnostician: Jenna Mckeon MD Pathologist | | [...] ringers (LR) infusion | New Bag | 12/02/19 | | 100 | | | at [...]
--- OUTSIDE RECORDS SUMMARY | ~2019-05-19 | XMS | Clinical Summary ---
Demographics + + + | Address | [address] | | | [place] [address] | + + + | Home Phone | | + + + | Preferred Language | Unknown | + + + | Marital Status | Single | + + + | Jainism Affiliation | 1041 | + + + | Race | Unknown | + + + | Ethnic Group | Unknown | + + + Author + + + | Author | [facility] | | | and [place] | + + + | Organization | [facility] | | | and [place] | + + + | Address | Unknown | + + + | Phone | Unavailable | + + + Support + + + + + | Name | Relationship | Address | Phone | + + + + + | Jeremy Hinton | ECON | [address] | | | | | [id number] | | | | | [address] | | + + + + + Care Team Providers + +------+ + | Care Box Coverer Hand Name | Role | Phone | + +------+ + | Idalia Rae DO | PCP | | + +------+ + Allergies + + [...] | | | | e | | SALES PROGRAM MANAGER) 75 MG | | | | | [...] + + + + | Name | Administration Dates | Next Due | + + + [...] | | + + + + + Plan of Treatment [...] | | | | Risk (1 of - | | | | | PPSV23) [...] | [employer] | [employer] | [id number] | 05/25/ | [phone] | | Medica | | MEDICAID HMO [...] Self | [birth year] | [address] | | | al/Fam | | 1956 | [phone] | [place] | | | lc | | | 0 (Home) | [address] | + +--------+ +--------+ + + Advance Directives + + + + + | Type | Date Recorded | Patient | Explanation | | | | Interior Specialist | | + + + + + | Power of | | | | | Games Dealer | | | | + + + + + | Advance | 12/28/2017 11:56 | | | | Directive | AM | | | + + + + +
--- OUTSIDE RECORDS SUMMARY | ~2019-05-19 | XMS | Encounter Summary ---
Demographics + + + | Address | [address] | | | [place] [address] | + + + | Home Phone | | + + + | Preferred Language | Unknown | + + + | Marital Status | Single | + + + | Tenriism Affiliation | 1041 | + + + [...] | Jeremy Hinton | ECON | [address] | | | | | [id number] | | | | | [address] | | + + + + + Care Team Providers + +------+ + | Care Personnel Specialist Name | Role | Phone | + +------+ + | Idalia Rae DO | PCP | | + +------+ + Encounter Details +--------+ + + + + | Date | Type | Department | Care Team | Description | +--------+ + + + + | 12/14/ | Hospital | [facility] | Idalia Rae, | | | 2017 | Encounter | Hospital Mammography | DO [address] | | | | | [address] | [place] [address] | | | | | [place], [place] | [phone] | | | | | [address] | | | | | | [phone] | Radiologist, Cc Wgr | | +--------+ [...] + +--------+ + + + | [facility] | Routin | 06/22/2017 | Abnormal mammogram | Results for this | | NEEDLE LOC LEFT | e | 11:48 AM | of left breast | procedure are in the | | | | PST | | results section. | + +--------+ + + + | SURGICAL PATHOLOGY | Routin | 06/22/2017 | | Results for this | | EXAM | e | 12:00 AM | | procedure are in the | | | | PST | | results section. | + +--------+ + + + documented in this encounter Results Surgical Pathology Exam (06/22/2017 12:00 AM PST) + + | Specimen | + + | | + + + + + | Narrative | Performed At | + + + | Ordering Provider Saleem WOO CC Provider LG - [employer] Web | [place] [facility] | | [facility] /, [facility], [employer] MANAGEMENT /F Collected Date [id number] | INCYTE | | Received Date [id number] Completed Date 20170623 Specimens: Left | | | breast stereo biopsy with calcification Pre-Op Diagnosis: None Given | | | Post-Op Diagnosis: None Given Chart/ID#: [id number] Diagnosis: | | | Breast, left breast, biopsy: Benign fibroepithelial lesion, | | | consistent with fibroadenoma. Microcalcifications associated with | | | fibrous breast parenchyma. No atypical hyperplasia, in situ or | | | invasive carcinoma identified. Electronically Signed By: | | | Electronically Signed: Benji Scott M.D. Clinical Brief: Left | | | breast calcif; approx 2 o'clock; posterior 3rd depth lateral breast | | | Gross Description: One specimen is received in a formalin-filled | | | container labeled with the patients name (Tangela Hinton), the date of | | | (1955) and additionally labeled "left breast" are multiple | | | irregular shaped fragments of molina-white to pale yellow to pale | | | pink soft tissue measuring 2.5 x 2.0 x 0.6 cm in aggregate. The | | | specimen is entirely submitted between sponges in 2 cassettes. NATsalome | | | gross examination is performed at [facility], [address] | | | [place], [place] [address]. Microscopic Examination: Microscopic | | | examination by Sania Scott M.D. Stain quality is adequate. User 1 | | | Lab PERFORMING LABORATORY: Tissue processing | | | and slide preparation were performed by [facility], [address] | | | [facility], [place], [address] . Professional interpretation was | | | performed by Sterling Edouard Villafana [address] [facility] [facility] [address], [place] | | | [place] [address]. | | + + + + +---------+ [...]
--- OUTSIDE RECORDS SUMMARY | ~2019-05-19 | XMS | Encounter Summary ---
Demographics + + + | Address | [address] | | | [place] [address] | + + + | Home Phone | | + + + | Preferred Language | Unknown | + + + | Marital Status | Single | + + + | Baptist Affiliation | 1041 | + + + | Race | Unknown | + + + | Ethnic Group | Unknown | + + + Author + + + | Author | [facility] | | | and [place] | + + + | Organization | [facility] | | | and [place] | + + + | Address | Unknown | + + + | Phone | Unavailable | + + + Support + + + + + | Name | Relationship | Address | Phone | + + + + + | Jeremy Hinton | ECON | [address] | | | | | [id number] | | | | | [address] | | + + + + + Care Team Providers + +------+ + | Care Certified Teacher Assistant Name | Role | Phone | + [...] [address] | [place] [address] | | | | | [place], [place] | [phone] | | | | | [address] | | | | | | [phone] | | | +--------+ + + + [...] + + documented in this encounter Results [facility] Digital Screening Bilateral (11/24/2016 9:13 AM PDT) + + | Specimen | + + | | + + + + + | Narrative | Performed At | + + + | EXAMINATION: [facility] SCREEN OUTPATIENT HISTORY: Routine | | | [...] 5 Highly suggestive for/of malignancy. JOB #: [id number] | | | Digitally Released by: Alex [...] | | | | | JOB #: [id number] | | Digitally Released by: Alex Lozano | | | | | | Read By: ALEX LOZANO MD | | Date: 11/24/2016 12:31 | | | + + documented in this encounter Visit Diagnoses Not on filedocumented in this encounter
--- OUTSIDE RECORDS SUMMARY | ~2019-05-19 | XMS | Encounter Summary ---
Demographics + + + | Address | [address] | | | [place] [address] | + + + | Home Phone | | + + + | Preferred Language | Unknown | + + + | Marital Status | Single | + + + | Roman Catholic Affiliation | 1041 | + + + | Race | Unknown | + + + | Ethnic Group | Unknown | + + + Author + + + | Author | [facility] | | | and [place] | + + + | Organization | [facility] | | | and [place] | + + + | Address | Unknown | + + + | Phone | Unavailable | + + + Support + + + + + | Name | Relationship | Address | Phone | + + + + + | Jeremy Hinton | ECON | [address] | | | | | [id number] | | | | | [address] | | + + + + + Care Team Providers + +------+ + | Care Senior Sales Compensation Analyst Name | Role | Phone | + +------+ + PCP | Unavailable | + +------+ + Encounter Details +--------+ + + + + | Date | Type | Department | Care Team | Description | +--------+ + + + + | 12/22/ | [facility] | Anne Bailey | | | 2016 | Encounter | HOSPITAL NURSERY | [address] | | | | | [address] | [address] [place], | | | | | [place], [place] | [place] [address] | | | | | [address] | [phone] | | | | | [phone] | | | +--------+ + + + [...]
--- OUTSIDE RECORDS SUMMARY | ~2019-05-19 | XMS | Encounter Summary ---
Demographics + + + | Address | [address] | | | [place] [address] | + + + | Home Phone | | + + + | Preferred Language | Unknown | + + + | Marital Status | Single | + + + | Voodoo Affiliation | 1041 | + + + | Race | Unknown | + + + | Ethnic Group | Unknown | + + + Author + + + | Author | [facility] | | | and [place] | + + + | Organization | [facility] | | | and [place] | + + + | Address | Unknown | + + + | Phone | Unavailable | + + + Support + + + + + | Name | Relationship | Address | Phone | + + + + + | Jeremy Hinton | ECON | [address] | | | | | [id number] | | | | | [address] | | + + + + + Care Team Providers + +------+ + | Care Appeals Board Referee Name | Role | Phone | + +------+ + PCP | Unavailable | + +------+ + Encounter Details +--------+ + + + + | Date | Type | Department | Care Team | Description | +--------+ + + + + | 12/15/ | [facility] | Anne Bailey | | | 2016 | Encounter | HOSPITAL NURSERY | [address] | | | | | [address] | [address] [place], | | | | | [place], [place] | [place] [address] | | | | | [address] | [phone] | | | | | [phone] | | | +--------+ + + + [...]
--- OUTSIDE RECORDS SUMMARY | ~2019-05-19 | XMS | Encounter Summary ---
Demographics + + + | Address | [address] | | | [place] [address] | + + + | Home Phone [...] + + + | Author | [facility] | | | and [place] | + + + | Organization | [facility] | | | and [place] | + + + | Address | Unknown | + + + | Phone | Unavailable | + + + Support + + + + + | Name | Relationship | Address | Phone | + + + + + | Jeremy Hinton | ECON | [address] | | | | | [id number] | | | | | [address] | | + + + + + Care Team Providers + +------+ + | Care Floor Polisher Name | Role | Phone | + [...] [address] | [address] [place], | | | | | [place], [place] | [place] [address] | | | | | [address] | [phone] | | | | | [phone] | | | +--------+ + + + [...]
--- OUTSIDE RECORDS SUMMARY | ~2019-05-19 | XMS | Encounter Summary ---
Demographics + + + | Address | [address] | | | [place] [address] | + + + | Home Phone | | + + + | Preferred Language | Unknown | + + + | Marital Status | Single | + + + | Yarsanism Affiliation | 1041 | + + + [...] | Jeremy Hinton | ECON | [address] | | | | | [id number] | | | | | [address] | | + + + + + Care Team Providers + +------+ + | Care Vp Rheumatology Name | Role | Phone | + [...] | | | | [address] | [place] [address] | | | | | [place], [place] | [phone] | | | | | [address] | | | | | | [phone] | Radiologist, Cc Wgr | | +--------+ [...] Provider Saleem WOO CC Provider LG - Dragon [employer] Web | [facility] | | [facility] /, [facility], [employer] MANAGEMENT /F Collected Date [id number] | INCYTE | | Received Date 20170623 Completed Date 20170623 Specimens: Left | | | breast stereo biopsy with calcification Pre-Op Diagnosis: None Given | | | Post-Op Diagnosis: None Given Chart/ID#: [id number] Diagnosis: | | | Breast, left breast, [...] | | gross examination is performed at [facility], [address] | | | [place], [place] [address]. Microscopic Examination: Microscopic | | | examination by Sania Scott M.D. Stain quality is adequate. User 1 | | | Lab PERFORMING LABORATORY: Tissue processing | | | and slide preparation were performed by [facility], [address] | | | [facility], [place], [address] . Professional interpretation was | | | performed by Hobson Edouard Villafana [address] [facility] [address], [place] | | | [place] [address]. | | + + + + +---------+ [...]
--- OUTSIDE RECORDS SUMMARY | ~2019-05-19 | XMS | Encounter Summary ---
Demographics + + + | Address | [address] | | | [place] [address] | + + + | Home Phone | | + + + | Preferred Language | Unknown | + + + | Marital Status | Single | + + + | Faith Affiliation | 1041 | + + + | Race | Unknown | + + + | Ethnic Group | Unknown | + + + Author + + + | Author | [facility] | | | and [place] | + + + | Organization | [facility] | | | and [place] | + + + | Address | Unknown | + + + | Phone | Unavailable | + + + Support + + + + + | Name | Relationship | Address | Phone | + + + + + | Jeremy Hinton | ECON | [address] | | | | | [id number] | | | | | [address] | | + + + + + Care Team Providers + +------+ + | Care Road Supervisor Of Engines Name | Role | Phone | + [...] | 2018 | | [facility] | 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
--- OUTSIDE RECORDS SUMMARY | ~2019-05-19 | XMS | Encounter Summary ---
Demographics + + + | Address | [address] | | | [place] [address] | + + + | Home Phone | | + + + | Preferred Language | Unknown | + + + | Marital Status | Single | + + + | Sabianist Affiliation | 1041 | + + + | Race | Unknown | + + + | Ethnic Group | Unknown | + + + Author + + + | Author | [facility] | | | and [place] | + + + | Organization | [facility] | | | and [place] | + + + | Address | Unknown | + + + | Phone | Unavailable | + + + Support + + + + + | Name | Relationship | Address | Phone | + + + + + | Jeremy Hinton | ECON | [address] | | | | | [id number] | | | | | [address] | | + + + + + Care Team Providers + +------+ + | Care Plastic Boat Buffer Name | Role | Phone | + [...] | | | | | | | [place] | | | | | | | [...] + + + + | 12/01/ | Anesthesia | [place] [facility] | Maura Herrera | | | 2018 | Event | HOSPITAL MP INTRA OP | D, EXTENSION SPECIALIST [address] | | | | | [address] | [place], [place] | | | | | [place] | [address] | | | | | [address] | | | | | | [phone] | | | +--------+ + + + + Anesthesia Record + + + + + | Procedure Name | Responsible | Anesthesia Start | Anesthesia Stop Time | | | Anesthesiologist | Time | | + + + + + | COLONOSCOPY (N/A | Maura Herrera, | 12/01/17 1009 | 12/01/17 1033 | | Rectum) | EXTENSION SPECIALIST | | | + + + + + +----+---+ + + | Da | T | Event | Comment | | te | i | | | | | m | | | | | e | | | +----+---+ + + | 05 | 0 | | | | /2 | 8 | | | | 5/ | 1 | | | | 20 | 9 | | | | 18 | | | | +----+---+ + + | | 0 | An Checkout | Pre-use anesthesia machine/equipment checkout. | | | 9 | | | | | 1 | | | | | 7 | | | +----+---+ + + | | 1 | An Start | Reassessment prior to anesthesia induction/procedure. | | | 0 | | | | | 0 | | | | | 9 | | | +----+---+ + + | | 1 | Pre-Procedu | | | | 0 | ral Timeout | | | | 1 | Completed | | | | 3 | | | +----+---+ + + | | 1 | Quick Note | ETCO2 by sample tube, readings may be inaccurate. O2 at 2L via | | | 0 | | NC via supplemental source and may not be captured by EHR. | | | 1 | | | | | 3 | | | +----+---+ + + | | 1 | An | | | | 0 | Induction | | | | 1 | | | | | 3 | | | +----+---+ + + | | 1 | First | | | | 0 | Inc/Proc St | | | | 1 | | | | | 6 | | | +----+---+ + + | | 1 | Quick Note | Patient alert and oriented to person, place and time. Patient | | | 0 | | meets criteria for discharge from the PACU at time of discharge | | | 3 | | from endoscopy suite. Patient returned to [facility] by | | | 2 | | stretcher. | +----+---+ + + | | 1 | an stop | | | | 0 | data | | | | 3 | | | | | 3 | | | +----+---+ + + | | 1 | An Stop | Patient handed off to recovery nurseAlistair | | | 3 | | | | | 3 | | | +----+---+ + + +------+ | Meds | +------+ + +---------+ | Name | Total | + +---------+ | midazolam 1 mg/mL (2 mL vial) | 2 mg | + +---------+ | fentaNYL | 100 mcg | + +---------+ | propofol | 104 mg | + +---------+ | lidocaine (PF) injection 2% | 52 mg | + +---------+ | lactated ringers (LR) infusion | 300 mL | + +---------+ + + | Name | + + | N2O Flow Rate (L/Min) | + + | O2 Flow Rate (L/Min) | + + | Insp O2 | + + | Exp N2O | + + | Air Flow Rate (L/Min) | + + + + | No blood administrations on file. | + + +--------+ + + + | Type | Details | Placement | Removal | +--------+ + + + | Periph | 12/01/17; 0835; Right; Wrist; | 12/01/17 0835 by | 12/01/17 1130 by | | eral | [id number] catheter system; | Stevenson Hernandez RN | Mariah Ocampo, | | IV | 20 gauge; distraction, tolerated | | RN | | | well; no longer indicated; short | | | | | term use; 12/01/17; 1130 | | | +--------+ + + + documented in this encounter Social History + +-------+ +--------+------+ | Tobacco [...] filedocumented in this encounter Administered Medications + +--------+ +---------+------+------+ | Medication Order | MAR | Action | Dose | Rate | Site | | | Action | Date | | | | + +--------+ +---------+------+------+ | fentaNYL (PF) injection | Given | 12/02/19 | 100 mcg | | | | Intravenous, PRN, Pain, Starting | | 18 10:12 | | | | | 12/01/17 at 1012, Anesthesia | | AM PDT | | | | | Intra-op | | | | | | + +--------+ +---------+------+------+ +---+---+ | | | +---+---+ + +---------+ + + +---+ | lidocaine (PF) 2% injection | New Bag | 12/02/19 | 50 | 12 mL/hr | | | Intravenous, CONTINUOUS PRN, | | 18 10:12 | mcg/kg/m | | | | Starting 12/01/17 at 1012, | | AM PDT | in | | | | Anesthesia Intra-op | | | | | | + +---------+ + + +---+ +---+---+ | | | +---+---+ + +-------+ +------+---+---+ | midazolam (VERSED) 1 mg/mL | Given | 12/02/19 | 2 mg | | | | injection Intravenous, PRN, | | 18 10:12 | | | | | Anxiety, Starting 12/01/17 at | | AM PDT | | | | | 1012, Anesthesia Intra-op | | | | | | + +-------+ +------+---+---+ +---+---+ | | | +---+---+ + +---------+ + + +---+ | propofol (DIPRIVAN) injection | New Bag | 12/02/19 | 100 | 48 mL/hr | | | Intravenous, CONTINUOUS PRN, | | 18 10:12 | mcg/kg/m | | | | Starting Mon12/01/17 at 1012, | | AM PDT | in | | | | Anesthesia Intra-op | | | | | | + +---------+ + + +---+ +---+---+ | | | +---+---+ documented in this encounter"
--- OUTSIDE RECORDS SUMMARY | ~2019-05-19 | XMS | Encounter Summary ---
Demographics + + + | Address | [address] | | | [place] [address] | + + + | Home Phone | | + + + | Preferred Language | Unknown | + + + | Marital Status | Single | + + + | Church Affiliation | 1041 | + + + | Race | Unknown | + + + | Ethnic Group | Unknown | + + + Author + + + | Author | [facility] | | | and [place] | + + + | Organization | [facility] | | | and [place] | + + + | Address | Unknown | + + + | Phone | Unavailable | + + + Support + + + + + | Name | Relationship | Address | Phone | + + + + + | Jeremy Hinton | ECON | [address] | | | | | [id number] | | | | | [address] | | + + + + + Care Team Providers + +------+ + | Care Sporting Goods Sales Manager Name | Role | Phone | [...] | | | | | | | [place] | | | | | | | [...] 12/01/ | Surgery | [place] [facility] | [place], | COLONOSCOPY | | 2018 | | HOSPITAL INTRA OP | Miguel Zimmer, | | | | | [address] | [address] | | | | | [place] | [place] | | | | | [address] | [address] | | | | | [phone] | [phone] | | | | | | | [...] after normal business hours, please contact the [facility] at . documented in this encounter [...] daily. | | | | | | TOOL CLERK) 75 MG | | | | | [...] | 09/15/19 | | | (VITAMIN D3) 56008 | mouth Once a week | tablet [...] LABORATORY: The technical component was performed by [facility] | | | [facility], [address] [facility] [address] | | | [place], [place] [address] (Metal Tube Cutter: Benji Scott MD; CLIA# | | | [id number]). Professional interpretation was performed by [facility] | | | [facility], [address] | | | [place] [address] (Metal Tube Cutter: Benji Scott MD; CLIA# | | | [id number]). Diagnostician: Jenna Mckeon MD Pathologist | | [...]
--- OUTSIDE RECORDS SUMMARY | ~2019-05-19 | XMS | Encounter Summary ---
Demographics + + + | Address | [address] | | | [place] [address] | + + + | Home Phone | | + + + | Preferred Language | Unknown | + + + | Marital Status | Single | + + + | Episcopal Affiliation | 1041 | + + + [...] | Jeremy Hinton | ECON | [address] | | | | | [id number] | | | | | [address] | | + + + + + Care Team Providers + +------+ + | Care Compliance Administrator Name | Role | Phone | [...] | | | MEDICAL CLIN[facility] [address] | [facility] [place] [address] | | | | | [address] [place], | [phone] | | | | | [place] [address] | | | | | | [phone] | | | +--------+ + + + [...]
--- OUTSIDE RECORDS SUMMARY | ~2019-05-19 | XMS | Encounter Summary ---
Demographics + + + | Address | [address] | | | [place] [address] | + + + | Home Phone | | + + + | Preferred Language | Unknown | + + + | Marital Status | Single | + + + | Presybeterian Affiliation | 1041 | + + + | Race | Unknown | + + + | Ethnic Group | Unknown | + + + Author + + + | Author | [facility] | | | and [place] | + + + | Organization | [facility] | | | and [place] | + + + | Address | Unknown | + + + | Phone | Unavailable | + + + Support + + + + + | Name | Relationship | Address | Phone | + + + + + | Jeremy Hinton | ECON | [address] | | | | | [id number] | | | | | [address] | | + + + + + Care Team Providers + +------+ + | Care Applications Chemist Name | Role | Phone | + +------+ + | Idalia Rae DO | PCP | | + +------+ + Encounter Details +--------+ + + + + | Date | Type | Department | Care Team | Description | +--------+ + + + + | 09/14/ | Orders Only | [place] [facility] | Idalia Rae, | Acquired | | 2018 | | [facility] | DO [address] | hypothyroidism | | | | MEDICAL CLINIC [address] | [place] [address] | (Primary Dx); Other | | | | [address] [place], | [phone] | hyperlipidemia | | | | [place] [address] | | | | | | [phone] | | | +--------+ + + + [...] + | Other hyperlipidemia | + + documented in this encounter"
--- OUTSIDE RECORDS SUMMARY | ~2019-05-19 | XMS | Encounter Summary ---
Demographics + + + | Address | [address] | | | [place] [address] | + + + | Home Phone [...] + + + | Author | [facility] | | | and [place] | + + + | Organization | [facility] | | | and [place] | + + + | Address | Unknown | + + + | Phone | Unavailable | + + + Support + + + + + | Name | Relationship | Address | Phone | + + + + + | Jeremy Hinton | ECON | [address] | | | | | [id number] | | | | | [address] | | + + + + + Care Team Providers + +------+ + | Care Mechanical Door Repairer Name | Role | Phone | + [...] | | | | | | | [place] | | | | | | | [...] 12/01/ | Hospital | [place] [facility] | [place], | | | 2018 | Encounter | HOSPITAL MP INTRA OP | Miguel Zimmer, | | | | | [address] | [address] | | | | | [place] | [place] | | | | | [address] | [address] | | | | | [phone] | [phone] | | | | | | | [...] any questions, call your physician at or [phone]. If you need assistance after normal business hours, please contact the [facility] at . documented in this encounter [...] daily. | | | | | | HUMAN RESOURCES OFFICE ASSISTANT) 75 MG | | | | | [...] | 09/15/19 | | | (VITAMIN D3) 69252 | mouth Once a week | tablet [...] LABORATORY: The technical component was performed by [facility] | | | [facility], [address] [facility] [place] | | | [place], [place] [address] (Physician Relations Specialist: Benji Scott MD; CLIA# | | | [id number]). Professional interpretation was performed by [facility] | | | [facility], [address] [place] | | | [place] [address] (Physician Relations Specialist: Benji Scott MD; CLIA# | | | [id number]). Diagnostician: Jenna Mckeon MD Pathologist | | [...]
--- OUTSIDE RECORDS SUMMARY | ~2019-05-19 | XMS | Encounter Summary ---
Demographics + + + | Address | [address] | | | [place] [address] | + + + | Home Phone [...] | Jeremy Hinton | ECON | [address] | | | | | [id number] | | | | | [address] | | + + + + + Care Team Providers + +------+ + | Care Centrifugal Separator Name | Role | Phone | + [...] Results, Imaging | | 2017 | | [facility] | [address] | | | | | MEDICAL CLIN[facility] [address] | | | | | | [facility], | | | | | | [place] [address] | | | | | | [phone] | | | +--------+ + + + [...]
--- OUTSIDE RECORDS SUMMARY | ~2019-05-19 | XMS | Encounter Summary ---
Demographics + + + | Address | [address] | | | [place] [address] | + + + | Home Phone | | + + + | Preferred Language | Unknown | + + + | Marital Status | Single | + + + | Yazidi Affiliation | 1041 | + + + | Race | Unknown | + + + | Ethnic Group | Unknown | + + + Author + + + | Author | [facility] | | | and [place] | + + + | Organization | [facility] | | | and [place] | + + + | Address | Unknown | + + + | Phone | Unavailable | + + + Support + + + + + | Name | Relationship | Address | Phone | + + + + + | Jeremy Hinton | ECON | [address] | | | | | [id number] | | | | | [address] | | + + + + + Care Team Providers + +------+ + | Care Real Estate Development Manager Name | Role | Phone | + +------+ + PCP | Unavailable | + +------+ + Encounter Details +--------+ + + + + | Date | Type | Department | Care Team | Description | +--------+ + + + + | 08/11/ | [facility] | Idalia Rae, | | | 2016 | Encounter | [facility] | DO [address] [place] | | | | | [facility] [address] | [place] [address] | | | | | [address] [place], | [phone] | | | | | [place] [address] | | | | | | [phone] | | | +--------+ + + + [...]
--- OUTSIDE RECORDS SUMMARY | ~2019-05-19 | XMS | Encounter Summary ---
Demographics + + + | Address | [address] | | | [place] [address] | + + + | Home Phone | | + + + | Preferred Language | Unknown | + + + | Marital Status | Single | + + + | Advent Affiliation | 1041 | + + + | Race | Unknown | + + + | Ethnic Group | Unknown | + + + Author + + + | Author | [facility] | | | and [place] | + + + | Organization | [facility] | | | and [place] | + + + | Address | Unknown | + + + | Phone | Unavailable | + + + Support + + + + + | Name | Relationship | Address | Phone | + + + + + | Jeremy Hinton | ECON | [address] | | | | | [id number] | | | | | [address] | | + + + + + Care Team Providers + +------+ + | Care Case Aide Name | Role | Phone | + [...] | [address] | [address] | | | | | [place] | [place], [place] | | | | | [address] | [address] | | | | | [phone] | [phone] | | | | | | | [...]
--- OUTSIDE RECORDS SUMMARY | ~2019-05-19 | XMS | Encounter Summary ---
Demographics + + + | Address | [address] | | | [place] [address] | + + + | Home Phone | | + + + | Preferred Language | Unknown | + + + | Marital Status | Single | + + + | Bahai Affiliation | 1041 | + + + [...] | Jeremy Hinton | ECON | [address] | | | | | [id number] | | | | | [address] | | + + + + + Care Team Providers + +------+ + | Care Hand Stitcher Name | Role | Phone | + +------+ + PCP | Unavailable | + +------+ + Encounter Details +--------+ + + + + | Date | Type | Department | Care Team | Description | +--------+ + + + + | 05/11/ | [facility] | Idalia Rae, | | | 2015 | Encounter | [facility] | DO [address] [place] | | | | | MED[facility] [address] | [place] [address] | | | | | [address] [place], | [phone] | | | | | [place] [address] | | | | | | [phone] | | | +--------+ + + + [...]
--- OUTSIDE RECORDS SUMMARY | ~2019-05-19 | XMS | Encounter Summary ---
Demographics + + + | Address | [address] | | | [place] [address] | + + + | Home Phone | | + + + | Preferred Language | Unknown | + + + | Marital Status | Single | + + + | Hindu Affiliation | 1041 | + + + [...] | Jeremy Hinton | ECON | [address] | | | | | [id number] | | | | | [address] | | + + + + + Care Team Providers + +------+ + | Care Supervisor Wash House Name | Role | Phone | + +------+ + | Idalia Rae DO | PCP | | + +------+ + Reason for Visit + + + | Reason | Comments | + + + | Pre-op Exam | Colonoscopy | + + + Evaluate & Treat (Routine) +--------+ + + + + + | Status | Reason | Specialty | Diagnoses / | Referred By | Referred To | | | | | Procedures | Contact | Contact | +--------+ + + + + + | Closed | Specialty | Surgery / | Diagnoses | Kyra, | C[facility] | | | Services | General | Personal | Idalia Baez DO | General | | | Required | Surgery | history of | [address] | [address] | | | | | colonic | [place], | [place] | | | | | polyps | [place] [address] | F [place] | | | | | Procedures | Phone: | [place], [place] | | | | | SCREENING | [phone] | [address] | | | | | | Fax: | Phone: | | | | | | [phone] | [phone] | | | | | | | Fax: | | | | | | | [phone] | +--------+ + + + + + Encounter Details +--------+---------+ + + + | Date | Type | Department | Care Team | Description | +--------+---------+ + + + | 10/05/ | Office | [place] [facility] | Latrell, | Screening for colon | | 2018 | Visit | [facility] | Miguel Zimmer, | cancer (Primary Dx) | | | | SURGERY [address] | [address] | | | | | DR [place], | [place], [place] | | | | | [place] [address] | [address] | | | | | [phone] | [phone] | | | | | | | [...] + + + | Blood Pressure | 112/68 | 10/05/2017 10:20 AM | | | | | PDT | | + + + + + | Pulse | 75 | 10/05/2017 10:20 AM | | | | | PDT | | + + + + + | Temperature | - | - | | + + + + + | Respiratory Rate | 16 | 10/05/2017 10:20 AM | | | | | PDT | | + + + + + | Oxygen Saturation | 97% | 10/05/2017 10:20 AM | | | | | PDT | | + + + + + | Inhaled Oxygen | - | - | | | Concentration | | | | + + + + + | Weight | 80.3 kg (177 lb) | 10/05/2017 10:20 AM | | | | | PDT | | + + + + + | Height | 144.8 cm (4' 9") | 10/05/2017 10:20 AM | | | | | PDT | | + + + + + | Body Mass Index | 38.3 | 10/05/2017 10:20 AM | | | | | PDT | | + + + + + documented in this encounter Patient Instructions Patient Instructions Miguel Villegas MD - 10/05/2017 10:30 AM PDTFormatting o marilee this note might be different from the [facility] Bozena Adams M.D [address] [place] [address] [place], [place] [address] - PATIENT NAME: Tangela Hinton IF YOU ARE TAKING ANY BLOOD THINN HAS BEEN DISCUSSED WITH YOUR PHYSICIAN PRIOR TO STA RTING YOUR PREP PURCHASE AT THE PHARMACY: 1. Two Dulcolax (bisacodyl) 5mg tablets 2. Miralax 238 gram bottle 3. 64 ounces of Gatorade (any color except red or purple) FIVE DAYS PRIOR TO YOUR PROCEDURE AVOID NUTS AND SEEDS ONE DAY PRIOR TO YOUR PROCEDURE: ? Clear liquids only such as: water, strained fruit juices without pulp (apple, white grape , lemonade) clear broth or bouillon, coffee and tea (without cream or a non-dairy creamer), Gatorade, carbonated and non-carbonated soft drink, Endy-aid, plain Jell-O, and Popsicles. ? Avoid red or purple drinks, red or purple Jell-O and dairy products ? Consume large amounts of fluid to avoid dehydration ? At 10am, take one Dulcolax tablet . At 3pm, take another Dulcolax tablet. You may experi ence cramps and stools after ingestion. ? At 5pm, mix the full bottle of Miralax into 64 ounces of Gatorade. Shake until completel y dissolved. ? Drink the first half (32 ounces) starting at 5pm. You will drink FOUR 8-ounce glasses of the mixture. Take one 8-ounce glass every 10-15 minutes until you have finished the first half. This will induce stools. THE DAY OF THE PROCEDURE ? Drink the second half (32 ounces) four hours before leaving the house. You must finish t he second half within three hours of starting your procedure so that your stomach is empty f or your exam. ? You may continue to drink clear liquids until three hours prior to the procedure ? Do NOT take anything by mouth for three hours prior to the procedure. ? If you take medication in the morning for your heart, blood pressure, seizures, or chroni c pain, you may take it with a small amount of water. ? Please bring a list of your current medications and correct dosage to your appointment ? You cannot drive home. If you cannot arrange for transportation home, your procedure zay l be cancelled. You MUST arrange for someone to drive you home. You cannot take a taxi or bus. ? You will be sedated for your procedure. Please plan on avoiding important decisions for the remainder of the day. WHY SHOULD I USE A SPLIT-DOSE PREP LIKE THIS? ? Your gut continues to make bile and mucus throughout the night, even when you are not eat ing. These secretions are sticky and can easily cover over and hide flat polyps, especially on the right side of your colon. Recent data shows that these polyps are frequently missed and are more concerning for causing colon cancer. Because of these secretions, timing of t he preparation is very important to get you the best exam possible. ? Because the volume is split into smaller components, patients tolerate the prep better wi th less nausea, bloating, and vomiting. IT S YOUR HEALTH CARE ? We acknowledge that the preparation may present inconveniences, such as setting an alarm clock and waking very early in the morning. The more confident we are that we got a good ex am with an excellent prep, however, the longer the screening interval might be. In the best case scenario, an excellent prep with no polyps and no family history would mean a recommen ded repeat colonoscopy in 10 years. If you have a fair or poor prep, however, we cannot be confident we did not miss polyps and the recommended interval would likely be shorter (1 yea r). The better job you do with the prep, the better exam you ll get. documented in this encounter Progress Notes Miguel Villegas MD - 10/05/2017 10:30 AM PDT GENERAL SURGERY SCHEDULING - [facility] PATIENT: Tangela Hinton, 1955 PLANNED OPERATION: Colonoscopy TIME ESTIMATE: 20 minutes SPECIAL INSTRUCTIONS: None URGENCY: [x] Next avaliable [] Within 2 weeks ASSIST: [] Yes [x] No STATUS: [] AM Admit [] Observation [x] O/P POSITION: [] Supine [] Lithotomy [] Left Lateral Decubitus [] Right Lateral Decubitus ANESTHESIA: [] General [] Local / Sedation [] Epidural ENDOSCOPY [x] Colonoscopy [] EGD BREAST [] Left [] Right [] Bilateral [] Needle Localization [] Lumpectomy [] Mastectomy [] Newbern Node Biopsy [] Isosulfan Blue Dye [] Technesium 99 HERNIA [] Left [] Right [] Bilateral [] Inguinal [] Ventral [] Umbilical [] Open [] Laparoscopic COLON [] Right [] Left [] Sigmoid [] Open [] Laparoscopic [] Preop Ureteral Stent Placement - [] Left / [] Right GALLBLADDER [] Planned Cholangiogram aleb dumont, Miguel Zimmer MD - 10/05/2017 10:30 AM PDT History & Physical HISTORY OF PRESENT ILLNESS Tangela Hinton is a 62 y.o. female referred to me by Idalia Rae to discuss follow-up i nterval surveillance colonoscopy. The patient had a colonoscopy last year by myself that sh owed particularly large sigmoid colon polyp as well as multiple other polyps. The sigmoid c olon polyp was marked with blue dye at the time after removal. I had recommended 1 year fol low-up at that time. She's had no significant change in bowel habits other than becoming qu ite a bit more regular with the introduction of Metamucil into her daily routine. PAST MEDICAL HISTORY Past Medical History: Diagnosis Date GERD (gastroesophageal reflux disease) Seasonal allergies Thyroid disease PAST SURGICAL HISTORY Past Surgical History: Procedure Laterality Date BREAST BIOPSY MEDICATIONS Current Outpatient Prescriptions Medication Sig Dispense Refill atorvaSTATin (LIPITOR) 10 mg tablet Take 1 tablet by mouth nightly. (Patient not taking : Reported on 10/05/2017) 30 tablet 11 Cholecalciferol (VITAMIN D3) 16706 units TABS Take 1 tablet by mouth Once a week for 16 doses. 16 tablet 0 ergocalciferol (VITAMIN D-2) 50,000 units capsule Take 50,000 Units by mouth Once a wee k. levothyroxine (SYNTHROID) 75 MCG tablet Take 75 mcg daily 90 tablet 3 raNITIdine (RANITIDINE ACID SOUND ENGINEER) 75 MG tablet Take 75 mg by mouth 2 times daily. No current facility-administered medications for this visit. ALLERGIES Allergies Allergen Reactions Sulfa Antibiotics SOCIAL HISTORY Social History Social History Marital status: Single Spouse name: N/A Number of children: N/A Years of education: N/A Occupational History Not on file. Social History Main Topics Smoking status: Never Smoker Smokeless tobacco: Never Used Alcohol use Yes Comment: rare Drug use: No Sexual activity: Not Currently Other Topics Concern Not on file Social History Narrative No narrative on file FAMILY HISTORY Family History Problem Relation Age of Onset Asthma Mother COPD Father Heart disease Father High blood pressure Father Asthma Daughter REVIEW OF SYSTEMS CONSTITUTIONAL Denies recent unintentional weight loss, fevers, chills, or night sweats. HEAD Denies chronic headaches or history of concussion. EYES Denies pain, drainage or vision changes. EARS Denies pain or drainage. NOSE Denies pain, drainage or epistaxis. THROAT Denies pain, drainage, voice changes. NEUROLOGIC Denies ever having had a stroke or seizure. CARDIOVASCULAR Denies ever having had a previous OH, DVT, or PE. Denies chest pain or dyspnea on exertion . PULMONARY Denies the use of a CPAP or supplemental oxygen. Denies cough, phlegm, or hemoptysis. GASTROINTESTINAL Denies ever having had hepatitis. Denies change in bowel habits, blood in the stools. GENITOURINARY No flank pain, dysuria, or hematuria. INTEGUMENTARY Denies tattoos, rashes. HEMATOLOGIC Denies bleeding tendencies and has never had a blood transfusion. PHYSICAL EXAM Vital Signs on Arrival: BP: 112/68 Pulse: 75 Resp: 16 SpO2: 97 % on BMI: Body mass index is 38.3 kg/m. CONSTITUTIONAL Initial impression is that the patient appears of stated age and is in no acute distress. PSYCHIATRIC Patient has an appropriate mood and affect. NEUROLOGIC Extraocular muscles are intact and patient moves all four extremities. There are no appar ent focal deficits. HEENT Mucus membranes are moist without lesion. Sclera are non-icteric. NECK No thyromegaly, JVD, or bruits. LYMPHATIC No cervical or supraclavicular adenopathy. CARDIOVASCULAR Heart is regular rate and rhythm. There are no murmurs, rubs, or gallops. There is no pr etibial edema. PULMONARY Lungs are clear to auscultation bilaterally without wheeze, rales, or ronchi. There are n o retractions. ABDOMEN Soft, nondistended, and nontender. EXTREMITIES No cyanosis, clubbing, or edema. VASCULAR Peripheral pulses intact. No signs of venous or arterial insufficiency. BREAST Deferred. GENITOURINARY Deferred. RECTAL Deferred. INTEGUMENTARY Warm and dry. No obvious suspicious lesions. PERTINENT STUDIES None ASSESSMENT 62-year-old female with need for 1 year follow-up colonoscopy due to several large polyps o n her last examination PLAN Colonoscopy will be scheduled in the surgery Center with anesthesia help. She understands risks of bleeding, perforation, missed diagnosis, etc. and is anxious to proceed. Electronically signed by: Miguel Villegas MD 10/05/2017 10:50 This note was transcribed using voice recognition software; there may be speech recognition errors which escaped detection during physician chief of pathology. documented in this encounter Plan of Treatment Not on filedocumented as of this encounter Visit Diagnoses + + | Diagnosis | + + | Screening for colon cancer - Primary Special screening for malignant neoplasms, colon | + + documented in this encounter
--- OUTSIDE RECORDS SUMMARY | ~2019-05-19 | XMS | Clinical Summary ---
Demographics + + + | Address | [address] | | | [place] [address] | + + + | Home Phone | | + + + | Preferred Language | Unknown | + + + | Marital Status | Single | + + + | Buddhism Affiliation | 1041 | + + + [...] | Jeremy Hinton | ECON | [address] | | | | | [id number] | | | | | [address] | | + + + + + Care Team Providers + +------+ + | Care Admissions Advisor Name | Role | Phone | [...] | | | | e | | OVERHEAD CLEANER MAINTAINER) 75 MG | | | | | [...] | [employer] | [employer] | [id number] | 05/25/ | [phone] | | Medica | | MEDICAID HMO [...] lc | | | 0 (Home) | [address] | + +--------+ +--------+ + + Advance Directives + + + + + | Type | Date Recorded | Patient | Explanation | | | | Manager Mass | | + + + + + | Power of | | | | | Pediatric Care Coordinator | | | | + + + + + | Advance | 12/28/2017 11:56 | | | | Directive | AM | | | + + + + +
--- OUTSIDE RECORDS SUMMARY | ~2019-05-19 | XMS | Encounter Summary ---
Demographics + + + | Address | [address] | | | [place] [address] | + + + | Home Phone | | + + + | Preferred Language | Unknown | + + + | Marital Status | Single | + + + | Mu-Ism Affiliation | 1041 | + + + | Race | Unknown | + + + | Ethnic Group | Unknown | + + + Author + + + | Author | [facility] | | | and [place] | + + + | Organization | [facility] | | | and [place] | + + + | Address | Unknown | + + + | Phone | Unavailable | + + + Support + + + + + | Name | Relationship | Address | Phone | + + + + + | Jeremy Hinton | ECON | [address] | | | | | [id number] | | | | | [address] | | + + + + + Care Team Providers + +------+ + | Care Rn Chemical Dependency Name | Role | Phone | + [...] + + | 12/28/ | Office | [facility] | Idalia Rae, | Acquired | | 2018 | Visit | [facility] | DO [address] | hypothyroidism | | | | MEDICAL [facility] [address] | [place] [address] | (Primary Dx); Other | | | | [address] [place], | [phone] | hyperlipidemia; | | | | [place] [address] | | Vitamin D | | | | [phone] | | deficiency; Hand | | | [...] 10/05/2017) 30 tablet 11 Cholecalciferol (VITAMIN D3) 97792 units TABS Take 1 tablet by mouth [...] daily 90 tablet 3 raNITIdine (RANITIDINE ACID CONSTRUCTION ASSISTANT) 75 MG tablet Take 75 mg by [...] | mL/min/1.73m2 | [facility] | | | [facility] | RATE,ESTIMATED | | [facility] | | | | mL/min/1.50h3Bphd than | | [facility] | | | [...] [address] | [place] [address] | [phone] | | [facility] | | | [...] + + | [place] [facility] | [address] | [place] [address] | [phone] | | [facility] | | | [...] | [address] | [place] [address] | [phone] | | [facility] | | | [...] | | HOSPITAL | | | | [id number] - 129 mg/dL | | REGIONAL | | | | Near [id number] - | | MEDICAL | | | | 159 mg/dL | | CENTER LAB | | | | [id number] - 189 | | | | | [...] + + | [place] [facility] | [address] | [place] [address] | [phone] | | [facility] | | | | | [facility] | | | | + + [...]
--- OUTSIDE RECORDS SUMMARY | ~2019-05-19 | XMS | Encounter Summary ---
Demographics + + + | Address | [address] | | | [place] [address] | + + + | Home Phone | | + + + | Preferred Language | Unknown | + + + | Marital Status | Single | + + + | Zoroastrian Affiliation | 1041 | + + + | Race | Unknown | + + + | Ethnic Group | Unknown | + + + Author + + + | Author | [facility] | | | and [place] | + + + | Organization | [facility] | | | and [place] | + + + | Address | Unknown | + + + | Phone | Unavailable | + + + Support + + + + + | Name | Relationship | Address | Phone | + + + + + | Jeremy Hinton | ECON | [address] | | | | | [id number] | | | | | [address] | | + + + + + Care Team Providers + +------+ + | Care Netsuite Consultant Name | Role | Phone | + +------+ + | Idalia Rae DO | PCP | | + +------+ + Encounter Details +--------+ + + + + | Date | Type | Department | Care Team | Description | +--------+ + + + + | 05/31/ | Orders Only | [place] [facility] | Idalia Rae, | Abnormal mammogram | | 2017 | | [facility] | DO [address] | of left breast | | | | MEDICAL [facility] [address] | [place] [address] | (Primary Dx) | | | | [address] [place], | [phone] | | | | | [place] [address] | | | | | | [phone] | | | +--------+ + + + [...] + documented in this encounter Results MÓNICA Stereotactic Needle Loc Left (06/22/2017 11:48 AM PST) + + | Specimen | + + | | + + + + + | Impressions | Performed At | + + + | IMPRESSION: Successful stereotactic biopsy of left upper-outer | [facility] | | breast microcalcifications of concern. The biopsy specimen was sent | | | to pathology for evaluation. Dictated by: Saleem Preciado | | | | | + + + + + + | Narrative | Performed At | + + + | EXAMINATION: MÓNICA STEREOTACTIC NEEDLE LOC LEFT HISTORY: | [facility] | | abnormal findings left breast needs sterotactic breast biopsy | | | COMPARISON STUDY: May 25, 2017 PROCEDURE: The procedure was | | | described in detail to the patient. The patient elected to proceed. | | | A written informed consent was obtained. A time-out was also | | | performed. The patient was then placed on the stereotactic table | | | and the microcalcifications of concern in the left upper outer breast | | | were targeted. The skin was then prepped and draped in sterile | | | manner and anesthetized with 2% lidocaine. The biopsy device was | | | then advanced to the pre fire position. The position of the biopsy | | | device with respect to the calcifications was confirmed. The device | | | was then advanced to the biopsy position. Core samples were then | | | obtained. Specimen image demonstrates the calcifications of | | | concern to be within the sample. A biopsy marker was then deployed. | | | Postprocedural imaging demonstrates the biopsy marker to be | | | appropriately positioned. There was no postprocedural complication. | | | | | + + + + +---------+ + + | Performing | Address | City/State/Zipcode | Phone Number | | Organization | | | | + +---------+ + + | [facility] | | | | + +---------+ + + documented in this encounter Visit Diagnoses + + | Diagnosis | + + | Abnormal mammogram of left breast - Primary | + + documented in this encounter"
--- OUTSIDE RECORDS SUMMARY | ~2019-05-19 | XMS | Encounter Summary ---
Demographics + + + | Address | [address] | | | [place] [address] | + + + | Home Phone | | + + + | Preferred Language | Unknown | + + + | Marital Status | Single | + + + | Baptist Affiliation | 1041 | + + + | Race | Unknown | + + + | Ethnic Group | Unknown | + + + Author + + + | Author | [facility] | | | and [place] | + + + | Organization | [facility] | | | and [place] | + + + | Address | Unknown | + + + | Phone | Unavailable | + + + Support + + + + + | Name | Relationship | Address | Phone | + + + + + | Jeremy Hinton | ECON | [address] | | | | | [id number] | | | | | [address] | | + + + + + Care Team Providers + +------+ + | Care Double Spindle Shaper Operator Name | Role | Phone | [...] [address] | [place] [address] | | | | | [place], [place] | [phone] | | | | | [address] | | | | | | [phone] | | | +--------+ + + + [...]
--- OUTSIDE RECORDS SUMMARY | ~2019-05-19 | XMS | Encounter Summary ---
Demographics + + + | Address | [address] | | | [place] [address] | + + + | Home Phone | | + + + | Preferred Language | Unknown | + + + | Marital Status | Single | + + + | Orthodox Affiliation | 1041 | + + + | Race | Unknown | + + + | Ethnic Group | Unknown | + + + Author + + + | Author | [facility] | | | and [place] | + + + | Organization | [facility] | | | and [place] | + + + | Address | Unknown | + + + | Phone | Unavailable | + + + Support + + + + + | Name | Relationship | Address | Phone | + + + + + | Jeremy Hinton | ECON | [address] | | | | | [id number] | | | | | [address] | | + + + + + Care Team Providers + +------+ + | Care Rn Cardiovascular Name | Role | Phone | + [...] mammogram | | 2017 | | [facility] | DO [address] | of left breast | | | | MEDICAL [facility] [address] | [place] [address] | (Primary Dx) | | | | [address] [place], | [phone] | | | | | [place] [address] | | | | | | [phone] | | | +--------+ + + + [...]
--- OUTSIDE RECORDS SUMMARY | ~2019-05-19 | XMS | Encounter Summary ---
Demographics + + + | Address | [address] | | | [place] [address] | + + + | Home Phone | | + + + | Preferred Language | Unknown | + + + | Marital Status | Single | + + + | Latter-Day Affiliation | 1041 | + + + | Race | Unknown | + + + | Ethnic Group | Unknown | + + + Author + + + | Author | [facility] | | | and [place] | + + + | Organization | [facility] | | | and [place] | + + + | Address | Unknown | + + + | Phone | Unavailable | + + + Support + + + + + | Name | Relationship | Address | Phone | + + + + + | Jeremy Hinton | ECON | [address] | | | | | [id number] | | | | | [address] | | + + + + + Care Team Providers + +------+ + | Care Interactive Media Project Manager Name | Role | Phone | [...] | | | | | | | [place] | | | | | | | [...] | [facility] | D, HYDRAULIC CORRUGATING MACHINE OPERATOR [address] | | | | | [address] | [place], [place] | | | | | [place] | [address] | | | | | [address] | | | | | | [phone] | | | +--------+ + + + + Anesthesia Record + + + + + | Procedure Name | Responsible | Anesthesia Start | Anesthesia Stop Time | | | Anesthesiologist | Time | | + + + + + | COLONOSCOPY (N/A | Maura Herrera, | 12/01/17 1009 | 12/01/17 1033 | | Rectum) | HYDRAULIC CORRUGATING MACHINE OPERATOR | | | + + + + [...] | from endoscopy suite. Patient returned to [facility] by | | | 2 | | [...] 12/01/17 1130 by | | eral | [id number] catheter system; | Stevenson Hernandez RN | [...]
--- OUTSIDE RECORDS SUMMARY | ~2019-05-19 | XMS | Encounter Summary ---
Demographics + + + | Address | [address] | | | [place] [address] | + + + | Home Phone | | + + + | Preferred Language | Unknown | + + + | Marital Status | Single | + + + | Baptism Affiliation | 1041 | + + + | Race | Unknown | + + + | Ethnic Group | Unknown | + + + Author + + + | Author | [facility] | | | and [place] | + + + | Organization | [facility] | | | and [place] | + + + | Address | Unknown | + + + | Phone | Unavailable | + + + Support + + + + + | Name | Relationship | Address | Phone | + + + + + | Jeremy Hinton | ECON | [address] | | | | | [id number] | | | | | [address] | | + + + + + Care Team Providers + +------+ + | Care Office Manager Executive Assistant Name | Role | Phone | [...] [address] | [place] [address] | | | | | [place], [place] | [phone] | | | | | [address] | | | | | | [phone] | Radiologist, Cc Wgr | | +--------+ [...]
--- OUTSIDE RECORDS SUMMARY | ~2019-05-19 | XMS | Encounter Summary ---
Demographics + + + | Address | [address] | | | [place] [address] | + + + | Home Phone [...] | Jeremy Hinton | ECON | [address] | | | | | [id number] | | | | | [address] | | + + + + + Care Team Providers + +------+ + | Care Diamond Cleaver Name | Role | Phone | + [...] | [address] | [place] [address] | | | | | [place], [place] | [phone] | | | | | [address] | | | | | | [phone] | | | +--------+ + + + [...] daily. | | | | | | STRUCTURAL TECHNICIAN) 75 MG | | | | | | | tablet | | | | | | + + + +---------+ + + | Cholecalciferol | Take 1 tablet by | 16 | 0 | 03/08/20 | | | (VITAMIN D3) 40868 | mouth Once a week | tablet [...]
--- OUTSIDE RECORDS SUMMARY | ~2019-05-19 | XMS | Encounter Summary ---
Demographics + + + | Address | [address] | | | [place] [address] | + + + | Home Phone [...] + + | Author | [facility] | | | and [place] | + + + | Organization | [facility] | | | and [place] | + + + | Address | Unknown | + + + | Phone | Unavailable | + + + Support + + + + + | Name | Relationship | Address | Phone | + + + + + | Jeremy Hinton | ECON | [address] | | | | | [id number] | | | | | [address] | | + + + + + Care Team Providers + +------+ + | Care Oracle Adf Consultant Name | Role | Phone | [...] [address] | [address] [place], | | | | | [place], [place] | [place] [address] | | | | | [address] | [phone] | | | | | [phone] | | | +--------+ + + + [...]
--- OUTSIDE RECORDS SUMMARY | ~2019-05-19 | XMS | Encounter Summary ---
Demographics + + + | Address | [address] | | | [place] [address] | + + + | Home Phone [...] | Jeremy Hinton | ECON | [address] | | | | | [id number] | | | | | [address] | | + + + + + Care Team Providers + +------+ + | Care Magazine Supervisor Name | Role | Phone | + +------+ + PCP | Unavailable | + +------+ + Encounter Details +--------+ + + + + | Date | Type | Department | Care Team | Description | +--------+ + + + + | 03/01/ | [facility] | [place] [facility] | Nelly, | | | 2016 | Encounter | [facility] | Christopher Goran, | | | | | [address] | [address] | | | | | [place] | [place], [place] | | | | | [address] | [address] | | | | | [phone] | [phone] | | | | | | | [...] +--------+ + + + | COMPREHENSIVE | STAT | 03/01/2016 | | Results for this | | METABOLIC PANEL | | 9:06 AM | | procedure are in the | | | | PDT | | results section. | + +--------+ + + + | CBC W/AUTO | STAT | 03/01/2016 | | Results for this | | DIFFERENTIAL | | 9:05 AM | | procedure are in the | | | | PDT | | results section. | + +--------+ + + + documented in this encounter Results Comprehensive Metabolic Panel (03/01/2016 9:06 AM PDT) + +-------+ + + + | Component | Value | Ref Range | Performed | Pathologist | | | | | At | Signature | + +-------+ + + + | Sodium | 139 | 132 - 143 | EXTERNAL | [...] + + + | Anion Gap | 7 | 7 - 16 | EXTERNAL | | | | | | LAB | | + +-------+ + + + | Calcium | 8.7 | 8.3 - 10.0 | EXTERNAL | | | | | mg/dL | LAB | | + +-------+ + + + | Glucose | 109 | 70 - 110 mg/dL | EXTERNAL | | | | | | LAB | | + +-------+ + + + | BUN, Bld | 17 | 5 - 26 mg/dL | EXTERNAL | | | | | | LAB | | + +-------+ + + + | Creatinine | 0.93 | 0.60 - 1.30 | EXTERNAL | | | | | mg/dL | LAB | | + +-------+ + + + | BUN/Creatin | 18.3 | 7.0 - 24.0 | EXTERNAL | | | ine Ratio | | RATIO | LAB | | + +-------+ + + + | GFR | 60 | >=60 | EXTERNAL | | | ESTIMATE | | mL/min/1.73m2 | LAB | | + +-------+ + + + | Bilirubin, | 0.8 | <=1.2 mg/dL | EXTERNAL | | | Total | | | LAB | | + +-------+ + + + | Protein, | 8 | 6.6 - 8.5 g/dL | EXTERNAL | | | Total | | | LAB | | + +-------+ + + + | Albumin | 3.7 | 3.0 - 4.5 g/dL | EXTERNAL | | | | | | LAB | | + +-------+ + + + | Alkaline | 89 | 46 - 116 U/L | EXTERNAL | | | Phosphatase | | | LAB | | + +-------+ + + + | ALT, | 27 | 14 - 59 U/L | EXTERNAL | | | External | | | LAB | | + +-------+ + + + | AST, | 16 | <=38 U/L | EXTERNAL | | [...] +---------+ + + CBC w/ Auto Differential (03/01/2016 9:05 AM PDT) + +-------+ + + + | Component | Value | Ref Range | Performed | Pathologist | | | | | At | Signature | + +-------+ + + + | WBC | 10.2 | 4.3 - 10.4 | EXTERNAL | | | | | 1000/mm3 | LAB | | + +-------+ + + + | RBC | 4.76 | 4.12 - 5.30 | EXTERNAL | | | | | mil/mm3 | LAB | | + +-------+ + + + | HGB, | 13.3 | 12.4 - 15.7 | EXTERNAL | | | External | | g/dL | LAB | | + +-------+ + + + | HCT, | 41.1 | 37.7 - 47.0 % | EXTERNAL | | | External | | | LAB | | + +-------+ + + + | MCV | 86 | 82 - 97 fl | EXTERNAL | | | | | | LAB | | + +-------+ + + + | MCH | 27.9 | 27.1 - 32.3 pg | EXTERNAL | | | | | | LAB | | + +-------+ + + + | MCHC | 32.4 | 32.0 - 36.9 | EXTERNAL | | | | | g/dL | LAB | | + +-------+ + + + | RDW-CV | 14 | <=17.0 % | EXTERNAL | | | | | | LAB | | + +-------+ + + + | RDW-SD | 44.5 | 34.0 - 57.0 fL | EXTERNAL | | | | | | LAB | | + +-------+ + + + | Platelet | 324 | 150 - 450 | EXTERNAL | | | Count | | 1000/mm3 | LAB | | | Plasma | | | | | + +-------+ + + + | MPV | 11.2 | 9.4 - 12.3 FL | EXTERNAL | | | | | | LAB | | + +-------+ + + + | % Segmented | 52.1 | 42.0 - 76.0 % | EXTERNAL | | | | | | LAB | | | Neutrophils | | | | | + +-------+ + + + | % | 38.7 | 20.0 - 40.0 % | EXTERNAL | | | Lymphocytes | | | LAB | | + +-------+ + + + | % Monocytes | 6.5 | 3.0 - 13.0 % | EXTERNAL | | | | | | LAB | | + +-------+ + + + | % | 1.7 | 0.0 - 7.0 % | EXTERNAL | | | Eosinophils | | | LAB | | + +-------+ + + + | % Basophils | 0.7 | 0.0 - 2.0 % | EXTERNAL | | | | | | LAB | | + +-------+ + + + | % Immature | 0.3 | 0.0 - 0.5 % | EXTERNAL | | | Granulocyte | | | LAB | | | s | | | | | + +-------+ + + + | % nRBC | 0 | 0.0 - 0.2 /100 | EXTERNAL | | | | | WBC | LAB | | + +-------+ + + + | Absolute | 5.32 | 2.50 - 8.50 | EXTERNAL | | | Neutrophils | | 1000/mm3 | LAB | | + +-------+ + + + | Absolute | 3.95 | 1.00 - 3.80 | EXTERNAL | | | Lymphocytes | | 1000/mm3 | LAB | | + +-------+ + + + | Absolute | 0.66 | 0.00 - 0.80 | EXTERNAL | | | Monocytes | | 1000/mm3 | LAB | | + +-------+ + + + | Absolute | 0.17 | 0.00 - 0.70 | EXTERNAL | | | Eosinophils | | 1000/mm3 | LAB | | + +-------+ + + + | Absolute | 0.07 | 0.00 - 0.20 | EXTERNAL | | | Basophils | | 1000/mm3 | LAB | | + +-------+ + + + | Absolute | 0.03 | 0.00 - 0.15 | EXTERNAL | | | Immature | | 1000/mm3 | LAB | | | Granulocyte | | | | | | s | | | | | + +-------+ + + + | Absolute | 0.01 | 0.00 - 0.01 | EXTERNAL | | | nRBC | | 1000/mm3 | LAB | | + +-------+ + + + | SLIDE | NO | | EXTERNAL | | | REVIEWED | | | LAB | | + [...]
--- OUTSIDE RECORDS SUMMARY | ~2019-05-19 | XMS | Encounter Summary ---
Demographics + + + | Address | [address] | | | [place] [address] | + + + | Home Phone | | + + + | Preferred Language | Unknown | + + + | Marital Status | Single | + + + | Jain Affiliation | 1041 | + + + [...] | Jeremy Hinton | ECON | [address] | | | | | [id number] | | | | | [address] | | + + + + + Care Team Providers + +------+ + | Care Can Line Examiner Name | Role | Phone | + [...] [address] | [address] [place], | | | | | [place], [place] | [place] [address] | | | | | [address] | [phone] | | | | | [phone] | | | +--------+ + + + [...]
--- OUTSIDE RECORDS SUMMARY | ~2019-05-19 | XMS | Encounter Summary ---
Demographics + + + | Address | [address] | | | [place] [address] | + + + | Home Phone [...] Jeremy Hinton | ECON | [address] | | | | | [id number] | | | | | [address] | | + + + + + Care Team Providers + +------+ + | Care Director Of Teacher Education Name | Role | Phone | + +------+ + PCP | Unavailable | + +------+ + Encounter Details +--------+ + + + + | Date | Type | Department | Care Team | Description | +--------+ + + + + | 08/11/ | [facility] | Idalia Rae, | | | 2016 | Encounter | [facility] | DO [address] | | | | | [facility] [address] | [place] [address] | | | | | [address] [place], | [phone] | | | | | [place] [address] | | | | | | [phone] | | | +--------+ + + + [...]
--- OUTSIDE RECORDS SUMMARY | ~2019-05-19 | XMS | Encounter Summary ---
Demographics + + + | Address | [address] | | | [place] [address] | + + + | Home Phone | | + + + | Preferred Language | Unknown | + + + | Marital Status | Single | + + + | Restorationist Affiliation | 1041 | + + + [...] | Jeremy Hinton | ECON | [address] | | | | | [id number] | | | | | [address] | | + + + + + Care Team Providers + +------+ + | Care Business Intelligence Analyst Name | Role | Phone | + +------+ + | Idalia Rae DO | PCP | | + +------+ + Reason for Referral Evaluate & Treat (Routine) +--------+ + + [...] | | colonic | [place], | [address] | | | | | polyps | [place] [address] | [place] | | | | | Procedures | Phone: | [place], [place] | | | | | SCREENING | [phone] | [address] | | | | | | Fax: | Phone: | | | | | | [phone] | [phone] | | | | | | | Fax: | | | | | | | [phone] | +--------+ + + + + + Reason for Visit + + + | Reason | Comments | + + + | Annual Exam | labs and meds | + + + Encounter Details +--------+---------+ + + + | Date | Type | Department | Care Team | Description | +--------+---------+ + + + | 09/14/ | Office | [place] [facility] | Idalia Rae, | Acquired | | 2018 | Visit | [facility] | DO [address] | hypothyroidism | | | | [facility] [address] | [place] [address] | (Primary Dx); Polyp | | | | [address] [place], | [phone] | of colon, | | | | [place] [address] | | unspecified part of | | | | [phone] | | colon, unspecified | | | | | | type; Obesity (BMI | | | | | | 35.0-39.9 without | | | | | | comorbidity); | | | | | | Menopause; Periodic | | | | | | health assessment, | | | | | | general screening, | | | | | | adult | +--------+---------+ + + + Social History [...] + + + | Blood Pressure | 138/78 | 09/14/2017 11:01 AM | | | | | PST | | + + + + + | Pulse | 61 | 09/14/2017 11:01 AM | | | | | PST | | + + + + + | Temperature | - | - | | + + + + + | Respiratory Rate | 16 | 09/14/2017 11:01 AM | | | | | PST | | + + + + + | Oxygen Saturation | 96% | 09/14/2017 11:01 AM | | | | | PST | | + + + + + | Inhaled Oxygen | - | - | | | Concentration | | | | + + + + + | Weight | 79.1 kg (174 lb 6.4 | 09/14/2017 11:01 AM | | | | oz) | PST | | + + + + + | Height | 144.8 cm (4' 9") | 09/14/2017 11:01 AM | | | | | PST | | + + + + + | Body Mass Index | 37.74 | 09/14/2017 11:01 AM | | | | | PST | | + + + + + documented in this encounter Progress Notes Idalia Rae DO - 09/14/2017 11:00 AM PSTFormatting of this note might be different fro m the original. Subjective: Patient ID: Tangela Hinton is a 62 y.o. female. Here to have FU on thyroid lab and to get referral to see Nelly for her repeat colonosc opy due to colon polyps. Denies bowel changes. She has fasted so we can also check lipids an d full health screening labs. Menopause and has not had vitamin D level checked. States some fatigue but may be due to thyroid level being off. Has not been able to lose wt. Encouraged work on this. VS stable. Review of Systems Constitutional: Some mild fatigue increase noted. HENT: Negative. Eyes: Negative. Respiratory: Negative. Cardiovascular: Negative. Gastrointestinal: Negative. Endocrine: Negative. Genitourinary: Negative. Musculoskeletal: Negative. Skin: Negative. Allergic/Immunologic: Negative. Neurological: Negative. Hematological: Negative. Psychiatric/Behavioral: Negative. Social History Social History Marital status: Single Spouse name: N/A Number of children: N/A Years of education: N/A Occupational History Not on file. Social History Main Topics Smoking status: Not on file Smokeless tobacco: Never Used Alcohol use Not on file Comment: rare Drug use: No Sexual activity: Not on file Other Topics Concern Not on file Social History Narrative No narrative on file Allergies Allergen Reactions Sulfa Antibiotics Outpatient Encounter Prescriptions as of 09/14/2017 Medication Sig Dispense Refill levothyroxine (SYNTHROID) 50 mcg tablet raNITIdine (RANITIDINE ACID GREEN MARKETING ANALYST) 75 MG tablet Take 75 mg by mouth 2 times daily. [DISCONTINUED] sulfADIAZINE 500 mg tablet Take 500 mg by mouth 4 times daily. No facility-administered encounter medications on file as of 09/14/2017. Objective: BP 138/78 | Pulse 61 | Resp 16 | Ht 1.448 m (4' 9") | Wt 79.1 kg (174 lb 6.4 oz) | LMP (LMP Unknown) | SpO2 96% | ? No | BMI 37.74 kg/m Physical Exam Constitutional: She is oriented to person, place, and time. She appears well-developed and well-nourished. HENT: Head: Normocephalic and atraumatic. Right Ear: External ear normal. Left Ear: External ear normal. Mouth/Throat: Oropharynx is clear and moist. Eyes: Conjunctivae and EOM are normal. Pupils are equal, round, and reactive to light. Righ t eye exhibits no discharge. Left eye exhibits no discharge. No scleral icterus. Neck: Normal range of motion. Neck supple. No tracheal deviation present. No thyromegaly pr esent. Cardiovascular: Normal rate, regular rhythm and normal heart sounds. Exam reveals no العراقي p and no friction rub. No murmur heard. Pulmonary/Chest: Effort normal and breath sounds normal. No respiratory distress. Abdominal: Soft. Bowel sounds are normal. She exhibits no distension and no mass. There is no tenderness. Musculoskeletal: Normal range of motion. She exhibits no edema, tenderness or deformity. Lymphadenopathy: She has no cervical adenopathy. Neurological: She is alert and oriented to person, place, and time. No cranial nerve defici t. Coordination normal. Skin: Skin is warm and dry. No rash noted. Psychiatric: She has a normal mood and affect. Her behavior is normal. Judgment and thought content normal. Assessment: 1. Acquired hypothyroidism TSH 2. Polyp of colon, unspecified part of colon, unspecified type * [facility] - AMB Referral 3. Obesity (BMI 35.0-39.9 without comorbidity) Lipid Panel 4. Menopause Vitamin D, Deficiency Screen (25-Hydroxy) 5. Periodic health assessment, general screening, adult Comprehensive Metabolic Panel Lipid Panel Plan: Fasting labs, lipids, CMP, TSH and vitamin D. Referral to [place] for colonoscopy documented in this en counter Plan of Treatment + + +--------+ + + | Name | Type | Priori | Associated Diagnoses | Order Schedule | | | | ty | | | + + +--------+ + + | * [facility] | Outpatient | Routin | Polyp of colon, | Ordered: 09/14/2017 | | [facility] | Referral | e | unspecified part of | | | - AMB Referral | | | colon, unspecified | | | | | | type | | + + +--------+ + + documented as of this encounter Procedures + +--------+ + + + | Procedure Name | Priori | Date/Time | Associated Diagnosis | Comments | | | ty | | | | + +--------+ + + + | VITAMIN D, | Routin | 09/14/2017 | Menopause | Results for this | | DEFICIENCY SCREEN | e | 11:40 AM | | procedure are in the | | (25-HYDROXY) | | PST | | results section. | + +--------+ + + + documented in this encounter Results TSH (09/14/2017 11:40 AM PST) + +-------+ + + + | Component | Value | Ref Range | Performed | Pathologist | | | | | At | Signature | + +-------+ + + + | TSH | 1.00 | 0.36 - 3.74 | [place] | [...] + + + + + | [facility] | [address] | [place] [address] | [phone] | | [facility] | | | | | [facility] | | | | + + + + + Vitamin D, Deficiency Screen (25-Hydroxy) (09/14/2017 11:40 AM PST) + +--------+ + + + | Component | Value | Ref Range | Performed | Pathologist | | | | | At | Signature | + +--------+ + + + | Vitamin D, | 15 (L) | 30 - 100 ng/mL | [place] | | | 25 Hydroxy | | | [facility] | | | | | [facility] | | + +--------+ + + + + + | Specimen | + + | Blood | + + + + + + + | Performing | Address | City/State/Zipcode | Phone Number | | Organization | | | | + + + + + | [facility] | [address] | [place] [address] | [phone] | | [facility] | | | | + + + + + Lipid Panel (09/14/2017 11:40 AM PST) + + + + + + | Component | Value | Ref Range | Performed | Pathologist | | | | | At | Signature | + + + + + + | Triglycerid | 138 | 30 - 200 mg/dL | [place] | | | es | | | [facility] | | | | | | [facility] | | | | | | [facility] | | | | | | [facility] | | + + + + + + | Cholesterol | 245 (H) | 0 - 200 mg/dL | [place] | | | | | | [facility] | | | | | [facility] | | | | | | [facility] | | | | | | [facility] | | + + + + + + | HDL | 62 | >=40 mg/dL | [place] | | | | | | [facility] | | | | | [facility] | | | | | | [facility] | | | | | | [facility] | | + + + + + + | Chol/HDL | 4.0 | | [place] | | | Ratio | | | [facility] | | | | | | [facility] | | | | | | [facility] | | | | | | [facility] | | + + + + + + | LDL, | 155 (H)Comment: LDL | <=150 mg/dL | [place] | | | Calculated | reference range: | | [facility] | | | | < 100 mg/dL | | [facility] | | | | [id number] - 129 mg/dL | | [facility] | | | | Near [id number] - | | MEDICAL | | | | 159 mg/dL | | CENTER LAB | | | | [id number] - 189 | | | | | [...] + + + + + | [facility] | [address] [place] [address] | [place] [address] | [phone] | | [facility] | | | | | [facility] | | | | + + + + + Comprehensive Metabolic Panel (09/14/2017 11:40 AM PST) + + + + + + | Component | Value | Ref Range | Performed | Pathologist | | | | | At | Signature | + + + + + + | Na | 140 | 132 - 143 | [facility] | | | | | mmol/L | [facility] | | | | | [facility] | | | | | | [facility] | | | | | | [facility] | | + + + + + + | K | 3.6 | 3.3 - 4.9 | [facility] | | | | | mmol/L | [facility] | | | | | [facility] | | | | | | [facility] | | | | | | [facility] | | + + + + + + | Cl | 102 | 95 - 108 mmol/L | [facility] | | | | | | [facility] | | | | | [facility] | | | | | | [facility] | | | | | | [facility] | | + + + + + + | CO2 | 27 | 23 - 34 mmol/L | [facility] | | | | | | [facility] | | | | | | [facility] | | | | | | [facility] | | | | | | [facility] | | + + + + + + | Anion Gap | 11 | 7 - 16 mmol/L | [facility] | | | | | | [facility] | | | | | | [facility] | | | | | | [facility] | | | | | | [facility] | | + + + + + + | Glucose | 111 (H) | 70 - 110 mg/dL | [facility] | | | | | | [facility] | | | | | [facility] | | | | | | [facility] | | | | | | [facility] | | + + + + + + | BUN | 16 | 5 - 26 mg/dL | [facility] [...] | mL/min/1.73m2 | [facility] | | | GABONESE | RATE,ESTIMATED | | [facility] | | | | mL/min/1.33e1Trdu than | | [facility] | | | [...] + + + + | Albumin | 3.7 | 3.0 - 4.5 g/dL | [facility] [...] + + + + | AST | 11 | 0 - 38 U/L | [facility] | | | | | | [facility] | | | | | | [facility] | | | | | | [facility] | | | | | | [facility] | | + + + + + + | ALT | 24 | 14 - 59 U/L | [facility] | | | | | | [facility] | | | | | | [facility] | | | | | | [facility] | | | | | | [facility] | | + + + + + + | Alkaline | 74 | 46 - 116 U/L | [facility] | | | Phosphatase | | | [facility] | | [facility] | | | [facility] | | | | | | [facility] | | | | | | [facility] | | + + + + + + | Globulin | 4.1 | g/dL | [facility] | | | | | | [facility] | | | | | [facility] | | | | | | [facility] | | | | | | [facility] | | + + + + + + | Albumin/Marium | 0.9 | | [facility] | | | bulin Ratio | | | [facility] | | | | | | [facility] | | | | | | [facility] | | | | | | [facility] | | + + + + + + | BUN/Creatin | 17.6 | 7.0 - 24.0 | [facility] | [...] + + + + + | [facility] | [address] | [place] [address] | [phone] | | [facility] | | | | | [facility] | | | | + + + + + documented in this encounter Visit Diagnoses + + | Diagnosis | + + | Acquired hypothyroidism - Primary Unspecified hypothyroidism | + + | Polyp of colon, unspecified part of colon, unspecified type | + + | Obesity (BMI 35.0-39.9 without comorbidity) Obesity, unspecified | + + | Menopause Symptomatic menopausal or female climacteric states | + + | Periodic health assessment, general screening, adult Routine general medical | | examination at a health care facility | + + documented in this encounter
--- OUTSIDE RECORDS SUMMARY | ~2019-05-19 | XMS | Encounter Summary ---
Demographics + + + | Address | [address] | | | [place] [address] | + + + | Home Phone | | + + + | Preferred Language | Unknown | + + + | Marital Status | Single | + + + | Taoist Affiliation | [id number] | + + + | Race | Unknown | + + + | Ethnic Group | Unknown | + + + Author + + + | Author | [facility] | | | and [place] | + + + | Organization | [facility] | | | and [place] | + + + | Address | Unknown | + + + | Phone | Unavailable | + + + Support + + + + + | Name | Relationship | Address | Phone | + + + + + | Jeremy Hinton | ECON | [address] | | | | | [id number] | | | | | [address] | | + + + + + Care Team Providers + +------+ + | Care Energy Risk Management Analyst Name | Role | Phone | [...] | 2018 | | [facility] | | | | | [facility] [address] | | | | | | [address] [facility] [place], | | | | | | [place] [address] | | | | | | [phone] | | | +--------+ + + + [...]
--- OUTSIDE RECORDS SUMMARY | ~2019-05-19 | XMS | Encounter Summary ---
Demographics + + + | Address | [address] | | | [place] [address] | + + + | Home Phone | | + + + | Preferred Language | Unknown | + + + | Marital Status | Single | + + + | Anabaptism Affiliation | 1041 | + + + | Race | Unknown | + + + | Ethnic Group | Unknown | + + + Author + + + | Author | [facility] | | | and [place] | + + + | Organization | [facility] | | | and [place] | + + + | Address | Unknown | + + + | Phone | Unavailable | + + + Support + + + + + | Name | Relationship | Address | Phone | + + + + + | Jeremy Hinton | ECON | [address] | | | | | [id number] | | | | | [address] | | + + + + + Care Team Providers + +------+ + | Care Revenue Field Agent Name | Role | Phone | + [...] [facility] | [address] | | | | | MEDICAL CLINIC [address] | [facility] [place] [address] | | | | | [address] [place], | [phone] | | | | | [place] [address] | | | | | | [phone] | | | +--------+--------+ + + + [...]
--- OUTSIDE RECORDS SUMMARY | ~2019-05-19 | XMS | Encounter Summary ---
Demographics + + + | Address | [address] | | | [place] [address] | + + + | Home Phone | | + + + | Preferred Language | Unknown | + + + | Marital Status | Single | + + + | Sikhism Affiliation | 1041 | + + + [...] | Jeremy Hinton | ECON | [address] | | | | | [id number] | | | | | [address] | | + + + + + Care Team Providers + +------+ + | Care Payroll Clerk Name | Role | Phone | + [...] | | | | polyps | [place] [address] | [place] | | | | | Procedures | Phone: | [place], [place] | | | | | SCREENING | [phone] | [address] | | | | | | Fax: | Phone: | | | | | | [phone] | [phone] | | | | | | | Fax: | | | | | | | [phone] | +--------+ + + + + + [...] Acquired | | 2018 | Visit | [facility] | DO [address] | hypothyroidism | | | | MEDICAL CLINIC [address] | [place] [address] | (Primary Dx); Polyp | | | | [address] [place], | [phone] | of colon, | | | | [place] [address] | | unspecified part of | | | | [phone] | | colon, unspecified | | | [...] (SYNTHROID) 50 mcg tablet raNITIdine (RANITIDINE ACID SECURITY SYSTEMS SPECIALIST) 75 MG tablet Take 75 mg [...] CMP, TSH and vitamin D. Referral to [facility] for colonoscopy documented in this en counter [...] + + | [place] [facility] | [address] [facility] | [place] [address] | [phone] | | [facility] | | | [...] + + | [place] [facility] | [address] | [place] [address] | [phone] | | HOSPITAL LAB[facility]ATORY | | | [...] | | HOSPITAL | | | | [id number] - 129 mg/dL | | REGIONAL | | | | Near [id number] - | | MEDICAL | | | | 159 mg/dL | | CENTER LAB | | | | [id number] - 189 | | | | | [...] + + + | [place] [facility] | [address] [place] [address] | [place] [address] | [phone] | | H[facility] | | | [...] | mL/min/1.73m2 | [facility] | | | CONGOLESE | RATE,ESTIMATED | | HOSPITAL | | | | mL/min/1.43q5Wcht than | | REGIONAL | | | [...] + + | [place] [facility] | [address] [facility] | [place] [address] | [phone] | | HOSPITAL [facility] | | | [...]
--- OUTSIDE RECORDS SUMMARY | ~2019-05-19 | XMS | Encounter Summary ---
Demographics + + + | Address | [address] | | | [place] [address] | + + + | Home Phone | | + + + | Preferred Language | Unknown | + + + | Marital Status | Single | + + + | Gnosticist Affiliation | 1041 | + + + | Race | Unknown | + + + | Ethnic Group | Unknown | + + + Author + + + | Author | [facility] | | | and [place] | + + + | Organization | [facility] | | | and [place] | + + + | Address | Unknown | + + + | Phone | Unavailable | + + + Support + + + + + | Name | Relationship | Address | Phone | + + + + + | Jeremy Hinton | ECON | [address] | | | | | [id number] | | | | | [address] | | + + + + + Care Team Providers + +------+ + | Care Patternmaker All Around Name | Role | Phone | + [...] | [address] | [address] | | | | | [place] | [place], [place] | | | | | [address] | [address] | | | | | [phone] | [phone] | | | | | | | [...]
--- OUTSIDE RECORDS SUMMARY | ~2019-05-19 | XMS | Encounter Summary ---
Demographics + + + | Address | [address] | | | [place] [address] | + + + | Home Phone [...] | Jeremy Hinton | ECON | [address] | | | | | [id number] | | | | | [address] | | + + + + + Care Team Providers + +------+ + | Care Cafe Manager Name | Role | Phone | [...] | MEDICAL CLINIC [address] | [place] [address] | (Primary Dx); Other | | | | [address] [place], | [phone] | hyperlipidemia | | | | [place] [address] | | | | | | [phone] | | | +--------+ + + + [...]
--- OUTSIDE RECORDS SUMMARY | ~2019-05-19 | XMS | Encounter Summary ---
Demographics + + + | Address | [address] | | | [place] [address] | + + + | Home Phone [...] + + + | Author | [facility] | | | and [place] | + + + | Organization | [facility] | | | and [place] | + + + | Address | Unknown | + + + | Phone | Unavailable | + + + Support + + + + + | Name | Relationship | Address | Phone | + + + + + | Jeremy Hinton | ECON | [address] | | | | | [id number] | | | | | [address] | | + + + + + Care Team Providers + +------+ + | Care Knobber Name | Role | Phone | + [...] [address] | [place] [address] | | | | | [place], [place] | [phone] | | | | | [address] | | | | | | [phone] | | | +--------+ + + + [...]
--- OUTSIDE RECORDS SUMMARY | ~2019-05-19 | XMS | Encounter Summary ---
Demographics + + + | Address | [address] | | | [place] [address] | + + + | Home Phone | | + + + | Preferred Language | Unknown | + + + | Marital Status | Single | + + + | Uatsdin Affiliation | 1041 | + + + | Race | Unknown | + + + | Ethnic Group | Unknown | + + + Author + + + | Author | [facility] | | | and [place] | + + + | Organization | [facility] | | | and [place] | + + + | Address | Unknown | + + + | Phone | Unavailable | + + + Support + + + + + | Name | Relationship | Address | Phone | + + + + + | Jeremy Hinton | ECON | [address] | | | | | [id number] | | | | | [address] | | + + + + + Care Team Providers + +------+ + | Care Airport Driver Name | Role | Phone | + [...] | 2018 | | [facility] | [facility] | | | | | MEDICAL CLIN[facility] [address] | | | | | | [address]TH [facility], | | | | | | [place] [address] | | | | | | [phone] | | | +--------+ + + + [...]
--- OUTSIDE RECORDS SUMMARY | ~2019-05-19 | XMS | Encounter Summary ---
Demographics + + + | Address | [address] | | | [place] [address] | + + + | Home Phone | | + + + | Preferred Language | Unknown | + + + | Marital Status | Single | + + + | Temple Affiliation | 1041 | + + + | Race | Unknown | + + + | Ethnic Group | Unknown | + + + Author + + + | Author | [facility] | | | and [place] | + + + | Organization | [facility] | | | and [place] | + + + | Address | Unknown | + + + | Phone | Unavailable | + + + Support + + + + + | Name | Relationship | Address | Phone | + + + + + | Jeremy Hinton | ECON | [address] | | | | | [id number] | | | | | [address] | | + + + + + Care Team Providers + +------+ + | Care Lab Director Name | Role | Phone | + [...] [address] | [place] [address] | | | | | [place], [place] | [phone] | | | | | [address] | | | | | | [phone] | | | +--------+ + + + [...]
--- OUTSIDE RECORDS SUMMARY | ~2019-05-19 | XMS | Encounter Summary ---
Demographics + + + | Address | [address] | | | [place] [address] | + + + | Home Phone | | + + + | Preferred Language | Unknown | + + + | Marital Status | Single | + + + | Anglican Affiliation | 1041 | + + + | Race | Unknown | + + + | Ethnic Group | Unknown | + + + Author + + + | Author | [facility] | | | and [place] | + + + | Organization | [facility] | | | and [place] | + + + | Address | Unknown | + + + | Phone | Unavailable | + + + Support + + + + + | Name | Relationship | Address | Phone | + + + + + | Jeremy Hinton | ECON | [address] | | | | | [id number] | | | | | [address] | | + + + + + Care Team Providers + +------+ + | Care Oncology Consultant Name | Role | Phone | [...] | | | | polyps | [place] [address] | [place] | | | | | Procedures | Phone: | [place], [place] | | | | | SCREENING | [phone] | [address] | | | | | | Fax: | Phone: | | | | | | [phone] | [phone] | | | | | | | Fax: | | | | | | | [phone] | +--------+ + + + + + [...] | | SURGERY [address] | [address] | | | | | DR LORENA [place], | [place], [place] | | | | | [place] [address] | [address] | | | | | [phone] | [phone] | | | | | | | [...] this note might be different from the [facility] Bozena Adams M.D [address] [place] [address] [place], [place] [address] - PATIENT NAME: Tangela Hinton IF YOU [...] Needle Localization [] Lumpectomy [] Mastectomy [] [place] Node Biopsy [] Isosulfan Blue Dye [] [...] 10/05/2017) 30 tablet 11 Cholecalciferol (VITAMIN D3) 31825 units TABS Take 1 tablet by mouth Once a week for 16 doses. 16 tablet 0 ergocalciferol (VITAMIN D-2) 50,000 units capsule Take 50,000 Units by mouth Once a wee k. levothyroxine (SYNTHROID) 75 MCG tablet Take 75 mcg daily 90 tablet 3 raNITIdine (RANITIDINE ACID COUNSELOR MARRIAGE AND FAMILY) 75 MG tablet Take 75 mg by [...] CARDIOVASCULAR Denies ever having had a previous KS, DVT, or PE. Denies chest pain or [...] speech recognition errors which escaped detection during hand cloth cutter. documented in this encounter Plan of Treatment Not on filedocumented as of this encounter Visit Diagnoses + + | Diagnosis | + + | Screening for colon cancer - Primary Special screening for malignant neoplasms, colon | + + documented in this encounter
[~2019-05-19 13:35] MED LIST: LEVOTHYROXINE75 MCG PO
--- OUTSIDE RECORDS SUMMARY | 2019-05-19 13:38 | XMS ---
PreManage Notification: KAILYN URIBE Security Tafe Teacher Events No recent Security Events currently on file CRITERIA MET - [facility] - 2 Visits in 30 Days CARE PROVIDERS YNES CRUMP Family Medicine: Geriatric Medicine Current PHONE: Unknown YNES CRUMP Primary Care Current PHONE: [phone] Jeri has no Care Guidelines for this patient. [place] VISIT COUNT (12 MO.) [address] [place] [address] TOTAL 2 NOTE: Visits indicate total known visits. 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
== END 2019-05-19 16:25 | disposition home or self-care (01) ==
LOC: ED 13:35
DX: R10.32 Left lower quadrant pain (principal); Z88.2 Allergy status to sulfonamides; Z79.899 Other long term (current) drug therapy
CPT/HCPCS: 74177; 80053; 81001; 85025; 96361; 99284-25; J1885; J2405; J7030

== ENCOUNTER 2020-11-15 14:36 | Inpatient (IN) | payer OTHER ==
[~2020-11-15] VITALS: Ht 144.8 cm; Wt 77.8 kg
[~2020-11-15 14:36] MED LIST changes: +ACETAMINOPHEN-1 EAC1 PO; +LEVOTHYROXINE100 MCG PO; +ZOFRAN4 MG PO
--- OUTSIDE RECORDS SUMMARY | 2020-11-15 14:42 | XMS ---
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 [place] VISIT COUNT (12 MO.) 2 [facility] TOTAL 2 NOTE: Visits indicate total known visits. ED/UCC VISIT TRACKING (12 MO.) 11/15/2020 14:40 [facility] [place] TYPE: Emergency COMPLAINT: - SHORTNESS OF BREATH 11/13/2020 08:50 [facility] [place] TYPE: Emergency COMPLAINT: - COLD SYMPTOMS INPATIENT VISIT TRACKING (12 MO.) No inpatient visits to display in this time frame [email or web address]
--- NOTE | 2020-11-15 17:35 | NUR ---
PT HERE TO CCU ROOM 130 VIA STRETCHER FROM ER. PT IS ALERT AND [id number] X4, UNABLE TO TRANSITION FROM GURNEY TO BED, 3 PERSON ASSIST TO MOVE. PT REPORTS EXTREME GENERALIZED FATIGUE. PT DENIES PAIN, NAUSEA, SHE REPORTS SOME SOB THAT IS INCREASED WITH EXHERTION. IV SITE IN LEFT HAND IS INTACT, FLUSHES EASILY.
--- NOTE | 2020-11-15 18:26 | NUR ---
PT ABLE TO SWALLOW PILLS EASILY WITH [place] SODA. LIGHT DINNER ORDERED JELLO AND SOUP. PT REMAINS ALERT AND ORIENTED. PT C/O GENERALIZED PAIN 5/10 PO TYLENOL GIVEN. 4 MG IV ZOFRAN GIVEN TO PREVENT NAUSEA FROM EATING PER PT REQUEST.
--- NOTE | 2020-11-15 18:56 | NUR ---
PT SITTING UP IN BED EATING LIGHT DINNER OF SOUP AND JELLO.
--- NOTE | 2020-11-15 19:32 | NUR ---
PT UP TO THE BEDSIDE COMMODE WITH INCREASED PHYSICAL EFFORT. PT ABLE TO VOID 75 ML MATTHIEU CONCENTRATE URINE. PT O2 TITRATED UP TO 25L/027WMM5 WITH THE VAPOTHERM FOR ACTIVITY AND RECOVERY.
--- NOTE | 2020-11-15 20:00 | NUR ---
PATIENT ASSISTED TO REPOSITION TO RIGHT SIDE. VS STABLE. PATIENT IS FEELING SOB. RR 35 TO 40. DRY COUGH. LUNG SOUNDS ARE DIMINISHED THORUGHOUT. PATIENT ON VAPOTHERM 10L 100% Fi02. PATIENT HAS BEEN UP TO VOID. DENIES ANY NEEDS RIGHT NOW. CALL LIGHT IN REACH.
--- NOTE | 2020-11-15 21:25 | NUR ---
PRN MEDS PROVIDED. 2ND IV SITE ESTABLISHED. IV FLUIDS PER ORDER STARTED. PATIENT REPORTS EXTREME FATIGUE AND IS DROWSY. ASSISTED PATIENT TO TURN TO LEFT SIDE/ABD. O2 SATS 98% ON 25L 100% Fi02. TITREATED TO 20L 90% Fi02. RR 30 PRIOR TO MOVE. INCREASED WITH ACTIVITY AND THEN BACK DOWN TO 28 RR. PATIENT LUNGS SOUNDS ARE TIGHT AND DIMINSIHED THROUGHOUT. DRY COUGH, PRN COUGH SYRUP PROVIDED. DISCUSSED POSSIBLY GETTING A VERGARA CATHETER, PATIENT WILL CONSIDER. CALL LIGHT IN EASY REACH.
--- NOTE | 2020-11-16 00:48 | NUR ---
PATIENT SLEEPING. TOLERATING VAPOTHERM 20L 90% Fi02 WITH RR 25 AND O2 SATS 94-96%. PATIENT WOKE EASILY TO VOICE. REPORTED FEELING DAMP AND COLD. ASSISTED PATIENT TO THE BSC. PATIENT VOIDED CONCENTRATED 125 MLS. LIENENS CHANGED. NEW GOWN IN PLACE. PATIENT PRE-OXYGENATED AT 30L 100% Fi02. PATIENT DESAT TO MID 70'S WITH ACTIVITY AND FELT WEAK/LIGHTHEADED. PATIENT ASSISTED PATIENT TO BED. RIGHT SIDE POSITION CLOSE TO PRONE PATIENT CAN TOLERATE. PATIENT'S WORK OF BREATHING INCREASED, RR 35-40. PATIENT ABLE TO RECOVER AFTER SEVERAL MINS OF REST, ABOUT 10 MINS. PATIENT FEELS THAT THE HIGH FLOW MAKES IT HARDER TO CATCH HER BREATH, EDUCATION PROVIDED. TITRATED TO 25L 90% Fi02. PATIENT TOLERATED THIS WELL. CONTINUES TO HAVE FREQUENT DRY COUGH. PRN MEDS PROVIDED. IV FLUIDS INFUSING PER ORDER, SITE WNL. ORAL TEMP WNL. DISCUSSED VERGARA WITH PATIENT AGAIN AND SHE IS AGREEABLE TO HAVING ONE PLACED IN THE MORNING OR NEXT TIME SHE HAS TO VOID. ENCOURAGED PATIENT TO REST. CALL LIGHT IN REACH.
--- NOTE | 2020-11-16 05:00 | NUR ---
MORNING LABS DRAWN. PATIENT IS DROWSY AND REPORTS FEELING SOB AND TIRED AT REST. HAS BEEN SLEEPING MOST OF THE SHIFT. PATIENT AGREEABLE TO THE VERGARA. SIZE 14F PLACED. 100MLS CONCENTRATED URINE OUT. PATIENT DESATS TO 86% ON 30L 100% Fi02 FROM LAYING ON HER BACK. ASSISTED PATIENT TO ROLL TO HER LEFT SIDE. SATS IMPROVED. PATIENT DOES NOT TOLERATE THE INCREASED PRESSURE. TITRATED TO 25L 100% Fi02. PATIENT TOLERATES THIS SETTING. CALL LIGHT IN REACH. VS STABLE.
--- NOTE | 2020-11-16 06:13 | NUR ---
PROVIDED UPDATE TO . [facility] FOR CPAP RECEIVED AND LR BOLUS.
--- NOTE | 2020-11-16 06:26 | NUR ---
RT IN ROOM FOR CPAP SET UP. PROCEDURE EXPLAINED TO PATIENT. LR BOLUS STARTED, SITE WNL.
--- NOTE | 2020-11-16 07:51 | NUR ---
IN PATIENT'S ROOM FOR PUMP ALARMING. PT CONTINUES TO LAY ON HER LEFT SIDE WITH CPAP ON WITH 15+ L BLED INTO IT. SP02 IS 98% AT THIS MOMENT. HARD TO HEAR PATIENT DUE TO PAPR AND PATIENT HAVING CPAP MASK ON. WILL ALLOW PATIENT A LITTLE MORE TIME TO REST ON CPAP BEFORE HAVING HER TAKE IT OFF. RR 32 AT THIS TIME. IVF CONTINUE AT 75 ML/HR.
--- NOTE | 2020-11-16 09:01 | NUR ---
IN PATIENT'S ROOM FOR BREAKFAST AND MEDS. PT HELPED TO SIT AT EDGE OF BED. PT'S SON SITTING OUTSIDE OF ROOM AT THIS TIME. PT ABLE TO EAT SOME EGGS AND ENSURE. ASSESSMENT COMPLETE AND CRACKLES HEARD OVER RIGHT POSTERIOR LUNG BASE. PT BACK TO VAPOTHERM AT 25L AND 100% WITH CURRENT SP02 OF 96%. I/O COMPLETE. PT STATES SHE FEELS BETTER SITTING UP, HER BACK WAS HURTING A LOT WHILE LAYING DOWN. WILL CONTINUE TO MONITOR.
--- NOTE | 2020-11-16 10:07 | NUR ---
MED REC COMPLETE
--- NOTE | 2020-11-16 11:11 | NUR ---
PATIENT'S HAIR COMBED OUT AND BRAIDED. PT STANDS AT SIDE OF BED AND LINEN CHANGED UNDER. PT GIVEN A PARTIAL BATH. PT NOW BACK IN BED RESTING IN RIGHT SIDE WITH CPAP ON AND OXYGEN TURNED DOWN TO 10 L. PT WILL REST FOR A WHILE BEFORE LUNCH. 2 ATTEMPTS AT IV UNSUCCESSFUL BUT ENOUGH BLOOD DRAWN FOR VBG. CALL LIGHT WITHIN REACH. NEW GOWN ALSO PROVIDED FOR PATIENT. CONTINUE TO MONITOR.
--- NOTE | 2020-11-16 11:45 | NUR ---
OXYGEN INCREASED ON CPAP FROM 10 L TO 13 L PATIENT WAS STAYING BELOW 90% WHILE LAYING ON RIGHT SIDE. PT ALSO HELPED TO MOVE EVEN FURTHER ONTO RIGHT SIDE. CONTINUE TO MONITOR. SP02 IS 91% AT THIS TIME.
--- NOTE | 2020-11-16 12:47 | NUR ---
PATIENT CONTINUES TO REST AT THIS TIME, LYING ON RIGHT SIDE. OXYGEN WAS UP AROUND 98% AND LITER FLOW TURNED BACK DOWN TO 11 L ON CPAP. PT EXPRESSES THAT SHE WOULD LIKE TO CONTINUE RESTING AT THIS TIME AND IS NOT QUITE HUNGRY BUT WILL CALL WHEN SHE IS READY TO MOVE AROUND AND GET UP AND EAT. CONTINUE TO MONITOR.
--- NOTE | 2020-11-16 14:21 | NUR ---
PATIENT CONTINUES TO REST AT THIS TIME ON CPAP AND LAYING ON HER RIGHT SIDE ON 1 L CPAP 12. SP02 IS 94%. ASKED PATIENT IF SHE WAS READY FOR SOMETHING TO EAT AND SHE INDICATED THAT SHE WASN'T HUNGRY AT THIS TIME. WILL CONTINUE TO MONITOR.
--- NOTE | 2020-11-16 15:10 | EKG ---
[facility] [address] [place], [place] [address] Signed Normal sinus rhythm Low voltage QRS Nonspecific T wave abnormality Abnormal ECG Confirmed by DIDI THOMPSON MD ([id number]) on 11/16/2020 3:09:48 PM Electronically Signed By: DIDI THOMPSON MD 11/16/20 1510 PATIENT NAME: KAILYN URIBE Electrocardiogram DATE OF : 57 PHYSICIAN: DIDI THOMPSON MD REPORT #: [id number] REPORT IS CONFIDENTIAL AND NOT TO BE RELEASED WITHOUT AUTHORIZATION
--- NOTE | 2020-11-16 15:10 | NUR ---
DUE TO COVID RESTRICTIONS THIS RN TO CCU TO DISCUSS CASE MANAGEMENT CONSULT WITH CHRISTINE MARIE. CHRISTINE MARIE STATES PATIENT LIVE INDEPENDANTLY AT HOME. PATIENT SON REECE URIBE [phone] DOES LIVE IN TOWN AND CHECK ON HER FREQUENTLY. PATIENT IS ESTABLISHED WITH DR. MAIK ESCOBAR AM AND FILL MEDICATIONS AT [facility]. CHRISTINE MARIE STATES THAT IT IS TO EARLY IN THE PATIENT COURSE OF TREATMENT TO DETERMINE THE NEED FOR PLACEMENT, HOME DME OR OXYGEN AT THIS TIME. PRELIMINARY ASSESSMENT COMPLETED WITH CHRISTINE MARIE, WILL CONTINUE TO FOLLOW UP WITH PATIENT DURING HSOPITAL STAY.
--- NOTE | 2020-11-16 15:41 | NUR ---
IN LETY'S ROOM FOR ASSESSMENT AND POSITION CHANGE. PATIENT HAS BEEN RESTING WELL SINCE BEFORE LUNCH AND STATES SHE HAS BEEN DOING JUST FINE, AND WAS ABLE TO REST MORE THAN SHE HAS BEEN ABLE TO OVER THE LAST COUPLE OF WEEKS. PT NOW SITTING UP AT EDGE OF BED, AND COUGHING QUITE A LOT. PT STATES SHE DOESN'T FEEL LIKE SHE CAN TAKE A FULL BREATH WIHTOUT THE COUGHING STARTING. PT ON VAPOTHERM AND OFF CPAP, AND LITER FLOW INCREASED TO 35 L AND STILL AT 100%. RT CALLED AND NOW IN ROOM WITH PATIENT. PT STATES SHE DOES FEEL SHORT OF BREATH IF SHE IS DOING ANY ACTIVITY, BUT IF SHE LAYS PERFECTLY STILL, SHE CAN BREATH OKAY. LUNG SOUNDS CONTINUE TO REVEAL CRACKLES IN RIGHT MID TO LOWER BASE. SP02 IS HOVERING 86-90% ON THE VAPOTHERM. FOOD ORDERED FOR PATIENT SHE WASN'T HUNGRY FOR LUNCH. PT REMAINS AFEBRILE. COUGH SUPPRESION MEDS ARE AVAILABLE PRN AND DISCUSSED THIS WITH PATIENT. VERGARA DRAINING YELLOW URINE, QS. WILL CONTINUE TO MONITOR.
[2020-11-16] MEDS ORDERED: VITAMIN C500 M1 PO (16:28)
[2020-11-16] MEDS ORDERED: VITAMIN D325 MCG PO (16:28)
[2020-11-16] MEDS ORDERED: ZINC50 MG PO (16:28)
--- NOTE | 2020-11-16 16:28 | NUR ---
MED REC COMPLETE
--- NOTE | 2020-11-16 16:56 | NUR ---
PATIENT HELPED BACK TO BED AND NOW LAYING IN LEFT SIDE. PT REMAINS ON VAPOTHERM AT 40 L AND 100%. SP02 IS CURRENTLY 100% ALSO, THEREFORE FI02 TURNED DOWN TO 90%. PT USED BOTH IS AND ACAPELLA WITH RT. PT ABLE TO EAT SOME LATE AFTERNOON LUNCH. I/O COMPLETE. REMDESIVIR STARTED. WILL CONTINUE TO MONITOR. PT';S SON WAS HERE BUT LEFT AGAIN FOR THE EVENING.
--- NOTE | 2020-11-16 18:52 | NUR ---
PATIENT CONTINUES TO REST AT THIS TIME, WITH SP02 OF 100% ON 40 L AND 90%. PT'S HR IN THE 70s. CONTINUE TO MONITOR.
--- NOTE | 2020-11-16 20:00 | NUR ---
SHIFT REPORT RECEIVED FROM CYNTHIA BIGGS. ASSESSMENT COMPLETED. PT IS ALERT/ORIENTED, REPORTS 7/10 BACK PAIN, PRN ADVIL GIVEN. LUNGS CLEAR, DIM, VAPOTHERM IN PLACE AT 40L, 90% FIO2. INCREASED TO 100% WHILE PT SAT UP AND CHANGED POSITIONS DUE TO DESATURATIONS INTO 80'S. PRN ROBITUSSIN GIVEN FOR COUGH. TACHYPNIC RR:32-38. HR REGULAR. BOWEL TONES ACTIVE, DENIES NAUSEA. SKIN GROSSLY INTACT, PULSES FAINT, MILD EDEMA IN BLE. IV SITES INTACT, FLUIDS INFUSING WNL. VERGARA PATENT, CATH CARE PROVIDED. PT NOW POSITIONED ON RIGHT SIDE WITH PILLOW BEHIND BACK. FIO2 BACK TO 90%. PT DENIES FURTHER REQUESTS. CALL LIGHT WITHIN REACH.
--- NOTE | 2020-11-16 21:00 | NUR ---
R.T. IN TO ASSESS PT AND INSRUCT BREATHING EXERCISES WITH ACAPELLA/I.S., FIO2 DECREASED TO 80%.
--- NOTE | 2020-11-16 22:21 | NUR ---
PT APPEARS TO BE SLEEPING AT THIS TIME. VAPOTHERM REMAINS IN PLACE AT 40L @ 80%. SPO2:100%, HR:65.
--- NOTE | 2020-11-17 00:35 | NUR ---
ASSESSMENT COMPLETED. PT CONTINUES TO LIE ON RIGHT SIDE, DENIES PAIN. LUNGS REMAIN CLEAR/DIM, VAPOTHERM IN PLACE AT 40L, FIO2 TITRATED TO 70%. DR. JAY THOMPSON NOTIFIED OF LOW URINE OUTPUT, ORDERS RECEIVED FOR LR BOLUS AND TO INCREASE MAINTENANCE FLUIDS TO 75ML/HR. REMAINDER OF ASSESSMENT UNCHANGED. PT DENIES FURTHER NEEDS AT THIS TIME.
--- NOTE | 2020-11-17 02:04 | NUR ---
IN TO CHECK URINE OUTPUT, 35ML OUT SINCE BOLUS STARTED. PT RESTING, WOKE WHILE I WAS IN ROOM, DENIES NEEDS. VAPOTHERM CONTINUES AT 40L AND 70%. SPO2:98, RR REMAINS 32-38.
--- NOTE | 2020-11-17 04:45 | NUR ---
ASSESSMENT COMPLETED. PT REPORTS FEELING COLD, AFEBRILE AT THIS TIME. REPORTS HEADACHE AND GENERALIZED PAIN, PRN TYLENOL GIVEN. LUNGS CLEAR, DIM, INCREASED FIO2 AT THIS TIME FOR REPOSITIONING, TO 100%. ROBITUSSIN GIVEN FOR COUGH. IV FLUIDS INFUSING WNL, IV SITES INTACT, DRESSING CHANGED TO LEFT HAND IV SITE. UNABLE TO COLLECT LABS AT THIS TIME, ARMS WRAPPED IN WARM BLANKTES. REMAINDER OF ASSESSMENT UNCHANGED. CALL LIGHT WITHIN REACH.
--- NOTE | 2020-11-17 05:27 | NUR ---
CYNTHIA BUTT ABLE TO COLLECT LABS AT THIS TIME.
--- NOTE | 2020-11-17 05:34 | NUR ---
PT HAS REPOSITIONED ONTO HER LEFT SIDE. FIO2 DECREASED TO 80% FOR SPO2:100%.
--- NOTE | 2020-11-17 08:25 | NUR ---
PT IS AWAKE AND ALERT X4 LAYIN ON RT SIDE IN BED. PT REOPRTS 7/10 GENERALIZED PAIN, 500 MG PO TYLENOL GIVEN. BOTH IV SITES INTACT, NO REDNESS OR SWELLING NOTED, PT DENIES PAIN AT EITHER SITE WITH FLUSH OR INFUSION OF FLUIDS.
--- NOTE | 2020-11-17 08:50 | NUR ---
PT IS WILLING TO TRY JELLO FOR BREAKFAST, SHE REPORTS NOTHING ELSE SOUNDS GOOD. PLAN MADE WITH PT FOR A BED BATH LATER THIS MORNING AND LINEN CHANGE. PT REQUESTS AND IS GIVEN 4 MG IV ZOFRAN FOR PREVENTION OF NAUSEA AFTER EATING, AND REPORTS SLIGHT NAUSEA NOW. PT DESATS WITH SLIGHT ACTIVITY AND TALKING TO 82%. FIO2 TURNED UP TO 100% TO ASSIST WITH RECOVERY. ENCOURAGED PT TO BREATH THROUGH HER MOUTH.
--- NOTE | 2020-11-17 10:00 | NUR ---
PT REMAINS SITTING UP AT THE SIDE OF THE BED. VAPOTHERM SETTINGS ARE 40L/75%
--- NOTE | 2020-11-17 11:36 | NUR ---
AT APPROXIMATLY 1050 WENT INTO PT ROOM TO ASSIST HER TO LAY BACK IN BED AND PLACE THE CPAP ON HER. PT IS CURRENTLY SITTING UP AT THE BEDSIDE. PT VERBALIZES UNDERSTANDING OF PLAN, AND IS AGREABLE TO PRONING ON HER BELLY AT SOME POINT TODAY. ALL LINENS CHANGED DURING TRANSITION, AND VERGARA CATH CARES DONE. PT THEN PLACED ON CPAP......WHICH DOES NOT IMMEDIATLY COME ON, CALLED FOR RT TO ASSIST. CHIVO FROM RT THEN IN ROOM, TROUBLE SHOOTING WITH CPAP, PT THEN RECOVERS AFTER 5 MINUTES. PT IS LAYING ON HER RT SIDE WITH PILLOWS FOR SUPPORT. VITALS REMAIN STABLE. PT IS COOPERATIVE.
--- NOTE | 2020-11-17 13:35 | NUR ---
AFTER REVIEW OF PROGRESS NOTE, NO CHANGES IN PLAN OF CARE AT THIS TIME. WILL CONTINUE TO FOLLOW PATIENT DURING HER HOSPITAL STAY.
--- NOTE | 2020-11-17 15:50 | NUR ---
pt sleeping soundly at this time. spo2 sat is 97% on cpap of 10 13L bleed in of 02.
--- NOTE | 2020-11-17 15:55 | NUR ---
PT OFF CPAP AND ON TO VAPOTHERM 40L AND 70% FIO2. PT REPORT KNEE PAIN 6/10 400 MG PO IBUPROFEN GIVEN. PT ASSISTED TO SIT UP AT THE SIDE OF THE BED. DINNER ORDERED BY PT. PT IS ALERT AND ORIENTED X4, COOPERATIVE. BILAT IV SITES ARE INTACT, NO REDNESS OR SWELLING NOTED, FLUIDS AND FLUSHES INFUSE EASILY.
--- NOTE | 2020-11-17 19:48 | NUR ---
REPORT RECEIVED FROM KEITH MARIE. WILL CONTINUE PLAN OF CARE.
--- NOTE | 2020-11-17 21:24 | NUR ---
THIS RN IN TO ASSESS PT AND ADMINISTER SCHEDULED MEDICATIONS. PT SITTING UP AT THE SIDE OF THE BED AT THIS TIME ON HER TABLET. RT IN ROOM WELL TO ASSESS PT. VITALS TAKEN, PT ASSESSED. PT LUNGS COARSE THROUGHOUT AND CRACKLES HEARD IN THE RIGHT LOWER BASE. PT REPORTS SOB, RR NOTED TO BE AT 38/MIN. SPO2 IN THE 93-95% ON 40L AND 65% FIO2. EDEMA PRESENT IN LOWER LEGS/FEET, PEDAL PULSES WEAK. RADIAL PULSES STRONG, CAPPILLARY REFILL BRISK. SCHEDULED MEDICATION ADMINISTERED, PT DENIED THE NEED FOR DESENEX POWDER AT THIS TIME AND REFUSED IT FOR NOW, PRN ROBITUSSIN ADMINISTERED AT THIS TIME PER PT'S REQUEST. PT DENIES PAIN AT THIS TIME. PT PREOXYGENATED BY SETTING FIO2 UP TO 100% BEFORE TRANSFERING. PT STATED SHE WANTED TO TRY PRONING. PT INCREMENTALLY TRANSFERRED FROM A SITTING POSITION TO HER BACK TO HER LEFT SIDE AND THEN IN A LEFT PICKETT POSITION. PT STATED SHE COULD NOT TOLERATE GOING ANY FARTHER THAN LEFT PICKETT. PT MAINTAINED HER SPO2 AT 93-95 WHILE CHANGING POSITIONS BUT REPORTED SOB. PT GIVEN SUPPORT WITH PILLOWS AND FIO2 TURNED BACK DOWN TO 65%. PT STATES SHE WILL STAY IN THIS POSITION FOR NOW. PT REPORTS NO FURTHER NEEDS AT THIS TIME. WATER AT BEDSIDE, CALL LIGHT IN REACH, IVF INFUSING AT ORDERED RATE, WILL CONTINUE PLAN OF CARE.
--- NOTE | 2020-11-17 22:26 | NUR ---
THIS RN IN TO CHECK ON PT. PT STILL LYING IN LEFT PICKETT IN BED ON VAPOTHERM AWAKE. PT STATES SHES DOING FINE BUT WILL LIKELY WANT TO GO BACK TO A MORE COMFORTABLE POSITION LATER ON. PT STATES SHE WILL USE THE CALL LIGHT TO INFORM THIS RN WHEN SHE NEEDS HELP REPOSITIONING. PT REPORTS NO FURTHER NEEDS AT THIS TIME, WILL CONTINUE PLAN OF CARE. CALL LIGHT IN REACH, BED IN LOWEST POSITION, BED RAILS UP, VAPOTHERM ON AND AT PREVIOUS SETTINGS, IVF INFUSING ORDERED.
--- NOTE | 2020-11-18 00:28 | NUR ---
RESPONDED TO PT CALL LIGHT, PT LAYING IN BED IN L PICKETT AWAKE ON VAPOTHERM. PT STATED SHE WANTED TO CHANGE POSITIONS AT THIS TIME. THIS RN IN TO ASSIST PT. PT PREOXYGENATED AND ASSISTED IN TURNING TO HER RIGHT SIDE. PILLOWS PLACED BEHIND PT FOR SUPPORT. PT THEN REPORTED FEELING NAUSEA, PRN ZOFRAN ADMINISTERED AT THIS TIME. PT REPORTS INC SOB AFTER TURNING BUT STATES SHE ALWAYS FEELS SOB. PT REPORTS NO PAIN. PT ASSESSED AT THIS TIME. CRACKLES HEARD THROUGHOUT PT RIGHT SIDE, COARSE THROUGHOUT THE LEFT SIDE. AFTER ASSESSING PT AND TAKING VITALS THIS RN PLACED PT BACK DOWN TO 65% FIO2. PT BEGAN TO DESAT TO THE 88% RANGE. PT SLOWLY TITRATED UP. FIO2 NOW AT 100% TO MAINTAIN SPO2 IN THE 92-94% RANGE. PT REPORTS NO FURTHER NEEDS AT THIS TIME AND WAS COVERED WITH WARM BLANKETS. PT STATES SHE WILL BE GOING TO SLEEP. CALL LIGHT IN REACH, BED IN LOWEST POSITION, BEDRAILS UP, IVF INFUSING. WILL CONTINUE PLAN OF CARE.
--- NOTE | 2020-11-18 02:00 | NUR ---
PT SLEEPING AT THIS TIME. SPO2 AT 100%. THIS RN IN TO TITRATE FIO2 ON VAPOTHERM DOWN TO 65%. PT SLEEPING AT THIS TIME, RESPIRATIONS NOTED. SPO2 NOW AT 98%. PT IN NO APPARENT DISTRESS AND WAS LEFT UNDISTURBED. WILL CONTINUE PLAN OF CARE. CALL LIGHT IN REACH, BED IN LOWEST POSITION, IVF INFUSING.
--- NOTE | 2020-11-18 04:00 | NUR ---
THIS RN IN TO HANG NEW BAG OF IVF. PT INITIALL SLEEPING ON RIGHT SIDE WITH VAPOTHERM IN PLACE. PT AWOKE AT THIS TIME AND WAS ALERT AND ORIENTED. PT ASSESSED AT THIS TIME. LUNGS COARSE THROUGHOUT LEFT SIDE AND CRACKLES HEARD THROUGHOUT RIGHT. VERGARA DRAINED AT THIS TIME. PT REPORTS NO PAIN WHEN ASKED AND NO FURTHER NEEDS. WILL CONTINUE PLAN OF CARE. CALL LIGHT IN REACH, BED IN LOWEST POSITION, VAPOTHERM ON AT PREVIOUS SETTINGS, IVF INFUSING ORDERED.
--- NOTE | 2020-11-18 05:30 | NUR ---
THIS RN IN TO DRAW LABS AND ADMINISTER SCHEDULED MEDICATION. PT LAYING IN BED SLEEPING ON RIGHT SIDE ON VAPOTHERM. PT WOKEN FOR LABS. LABS DRAWN, PO MEDICATION ADMINISTERED (SEE MAR). PT REPORTS NO NEEDS WHEN ASKED AND RETURNED BACK TO SLEEP. CALL LIGHT IN REACH, BED IN LOWEST POSITION, IVF INFUSING ORDERED. WILL CONTINUE PLAN OF CARE.
--- NOTE | 2020-11-18 08:33 | NUR ---
IN PATIENT'S ROOM FOR ASSESSMENT AND VITAL SIGNS. PT HAS BEEN LAYING HER RIGHT SIDE. UPON ENTERING PATIENT'S ROOM, SP02 IS 99-100% ON 40 L 90% VAPOTHERM. PATIENT DID NOT WEAR CPAP THROUGH THE NIGHT. PATIENT STARTS TO PANIC AND STATES, "I'M SO UNCOMFORTABLE BECAUSE I'VE BEEN PEEING ALL NIGHT, AND IT HURTS. IT IS MAKING MY STOMACH CRAMP." VERGARA ASSESSED AND STILL APPEARS TO BE DRAINING CLEAR YELLOW URINE, BUT MANIPULATED THE TUBING TO ALLOW FOR BETTER DRAINAGE. PT HAS A TENDENCY TO PANT WHEN SHE BREATHS, AND CAN GET HER RR UP THE HIGH 40s, AND EVEN 50. COACHED PATIENT TO TRY AND SLOW HER BREATHING DOWN. PT STATES, "IT'S ALL TOO MUCH, I JUST CAN'T DO ANYTHING RIGHT NOW." DISCUSSED THIS FURTHER WITH PATIENT AND ENCOURAGED THAT WE SWITCH TO THE CPAP FOR A WHILE. PATIENT ABLE TO ROLL FROM RIGHT SIDE TO LEFT SIDE. THIS PROMOTED QUITE A BIT OF COUGHING AND SOME SPUTUM PRODUCTION WHICH IS [place]OPE[place]BROWNISH WITH A TINT OF BLOOD IN IT. PT THEN PLACED ON CPAP WITH 15 L BLED INTO IT. AGAIN, COACHED PATIENT THROUGH THE RAPID BREATHING. PT SEEMS VERY FATIGUED, PHYSICALLY AND EMOTIONALLY. SP02 IS NOW 95% ON THIS. LUNG SOUNDS REVEAL CLEAR LUNGS ON THE LEFT SIDE POSTERIORLY AND CRACKLES ON THE RIGHT FROM THE LOWER LUNG TO THE MID LUNG BASE. PT STATES, "I DON'T NORMALLY PEE THIS MUCH, AND THEY ARE PUMPING BAG AFTER BAG OF FLUID INTO ME AND MAKING ME PEE SO MUCH." DISCUSSED THIS FURTHER WITH PATIENT. WILL HOLD OFF ON BREAKFAST OR ANYTHING BY MOUTH AT THIS TIME. PT IS AFEBRILE AT THIS TIME. CONTINUING TO SIT IN ROOM WIHT PATIENT FOR ENCOURAGEMENT AND EMOTIONAL SUPPORT.
--- NOTE | 2020-11-18 09:11 | NUR ---
PATIENT CONTINUES TO REST ON LEFT SIDE WITH SP02 OF 100% AT THIS TIME ON CPAP, 13 L BLED IN. HR 68.
--- NOTE | 2020-11-18 09:40 | NUR ---
PATIENT USES CALL LIGHT AND STATES THAT SHE DOESN'T FEEL LIKE SHE'S GETTING THE PRESSURE SHE NEEDS. INTO PATIENT'S ROOM. RT CALLED AND ARRIVES INTO ROOM. PT STILL HOLDING HER SP02 AT 95-96%. PT COUGHS WITH PRODUCTION AND HELPED TO WIPE AWAY THIS SPUTUM. RT CHANGES PATIENT TO BIPAP, 25/12 TO GIVE HER MORE PRESSURE SUPPORT. PT SEEMS TO BE TOLERATING THIS WELL. WILL GO BACK IN ROOM AT 1030 TO HAVE PATIENT TURN TO RIGHT SIDE. EDUCATED PATIENT THAT SHE NEEDS TO BE WEARING CPAP/BIPAP AT NIGHT AND NOT JUST USING VAPOTHERM AT NIGHT. PT AGREEABLE TO THIS. CONTINUE TO MONITOR.
--- NOTE | 2020-11-18 10:23 | NUR ---
PATIENT REMAINS RESTING ON BIPAP AT THIS TIME WIHT SP02 OF 98%. RR NOW 31. WILL CONTINUE TO MONITOR CLOSELY.
--- NOTE | 2020-11-18 11:17 | NUR ---
IN PATIENT'S ROOM TO HELP HER REPOSITION. PT HELPED TO SIT UP ON EDGE OF BED AND AFTER A FEW MINUTES, THEN TAKEN OFF BIPAP AND SWITCHED TO VAPOTHERM. PT STATES SHE FEELS A TINY BIT BETTER, BUT STILL FEELS LIKE SHE HAS TO PEE CONSTANTLY, AND COMPARES THIS FEELING TO HOW IT FEELS WHEN SHE HAS HAD A UTI IN THE PAST. ON VAPOTHERM 40 L AND 100% AT THIS TIME WHILE SITTING UP, AND PT HAVING SOME DESATURATIONS AND COUGHING.
--- NOTE | 2020-11-18 11:50 | NUR ---
PATIENT PLACED BACK ON BIPAP SHE IS CONTINUING TO NOT STAY ABOVE 90% ON THE VAPOTHERM. BIPAP IS 18/6 WITH 15+ L BLED INTO IT AND STILL ONLY 90-91%. PT SITTING ON EDGE OF BED.
--- NOTE | 2020-11-18 11:58 | NUR ---
RT IN ROOM SETTING PATIENT UP ON A DIFFERENT BIPAP MACHINE. NEW IV STARTED IN LEFT WRIST 20 G.
--- NOTE | 2020-11-18 12:14 | NUR ---
PATIENT'S SON MAAME CALLED AND GIVEN AN UPDATE ON HER INCREASED OXYGEN NEEDS SO FAR TODAY. UPDATED DR. BRAY WELL ON THE PHONE AND NEW ORDER REC'D FOR VBG. WILL ATTEMPT TO DRAW OFF THE NEW IV PLACED IN LEFT WRIST. CONTINUE TO MONITOR.
--- NOTE | 2020-11-18 12:36 | NUR ---
PATIENT READY TO LAY BACK DOWN AND HELPED TO DO THIS. PT NOW LAYING ON RIGHT SIDE IN BED ON BIPAP, 18/6 AND 60%. PT PRE-OXYGENATED TO 80% FOR THIS MOVEMENT. PT ABLE TO STAND AND MOVE SELF UP HIGHER IN BED BUT THIS TOOK HER A COUPLE OF MINUTES TO RECOVER FROM. COACHING PATIENT TO CONTINUE TO SLOW HER BREATHING RATE IF POSSIBLE, SHE CONTINUOUSLY IS BREATHING 45-50 BPM. VBG DRAWN FROM NEW IV SITE IN LEFT WRIST AND SENT TO LAB.
--- NOTE | 2020-11-18 14:06 | NUR ---
PATIENT CONTINUES TO REST AT THIS TIME, LAYING ON RIGHT SIDE IN BED WITH BIPAP ON AT 60% /. RR 30-37 AT THIS TIME. CONTINUE TO MONITOR.
--- NOTE | 2020-11-18 14:41 | NUR ---
FI02 DECREASED TO 55% ON BIPAP. PT STILL SLEEPING ON RIGHT SIDE. CONTINUE TO MONITOR.
--- NOTE | 2020-11-18 15:38 | NUR ---
IN PATIENT'S ROOM FOR ASSESSMENT AND REPOSITIONING. PT LAID ON RIGHT SIDE FROM [phone]. PT NOW SITTING UP ON EDGE OF BED AND ON VAPOTHERM AT 40 L AND 100%. CURRENT SP02 IS 93%. PT SEEMS SLIGHLTY LESS TACHYPNEIC AND BREATHLESS COMPARED TO EARLIER TODAY WHEN SHE SAT UP. PT'S BACK AND FACE WASHED OFF. ASSESSMENT COMPLETE. PT GIVEN A CLEAR ENSURE TO TRY AND DRINK. PT C/O HER STOMACH FEELING UPSET AND HER BEING SLIGHTLY NAUESOUS. VERGARA WASN'T DRAINING WELL UPON ENTRY INTO ROOM AND AFTER TUBE MANIPULATION, DRAINED 200+ MORE ML. PT AGREEABLE TO TAKE SOME MOTRIN RIGHT NOW FOR GENERALIZED ACHES AND PAINS. WILL CONTINUE TO MONITOR.
--- NOTE | 2020-11-18 16:20 | NUR ---
PATIENT CONTINUES TO SIT UP ON EDGE OF BED AND IS MAINTAINING SP02 ON 40L AND 100% VAPOTHERM. PT OKAY WITH SITTING UP A WHILE LONGER BUT AGREES SHE WILL USE CALL LIGHT WHEN SHE IS READY TO LAY DOWN. PT WILL LAY DOWN ON LEFT SIDE NEXT. WILL CONTINUE TO MONITOR.
--- NOTE | 2020-11-18 16:53 | NUR ---
PATIENT READY TO LAY BACK DOWN. PT BACK TO BED AND ROLLS ONTO LEFT SIDE NOW. PT UNABLE TO COMPLETELY PRONE, SO SIDE TO SIDE LAYING IS WHAT WE ARE ENCOURAGING FOR HER. I/O COMPLETE. PT WAS ABLE TO STAY ON VAPOTHERM AT 40 L AND 100% FROM [phone]. PT FEARFUL OF HER COUGHING FITS SHE REALLY FEELS IF SHE CAN'T GET AIR IN WHEN SHE COUGHS TO VIOLENTLY. PT ALSO USES I/S AND ACAPELLA WHILE SITTING UP. PT ABLE TO DRINK HALF OF A CLEAR ENSURE, BUT THIS IS ALL SHE HAS HAD BY MOUTH TODAY. PT ALSO CONTINUES TO HAVE LOWER STOMACH DISCOMFORT, THAT SHE DESCRIBES EITHER THE NEED TO HAVE A BM OR PASS GAS. PT NOTES IT HAS BEEN DAYS SINCE HER LAST BM AND SINCE SHE HAS REALLY EATEN ANYTHING SUBSTANTIAL. BIPAP SETTINGS ARE 18/6. SP02 IS 98% ON 60% AND WILL ATTEMPT TO TURN THIS DOWN TOLERATED.
--- NOTE | 2020-11-18 18:12 | NUR ---
FI02 TURNED DOWN TO 45% AT THIS TIME. HR 52 AND SP02 IS 96%. PT CONTINUES TO SLEEP AT THIS TIME.
--- NOTE | 2020-11-18 20:00 | NUR ---
PATIENT APPEARS TO BE SLEEPING ON BIPAP. PATIENT WOKE EASILY. REPORTS BEING NAUSEOUS AND HAVING STOMACH CRAMPS. ASSISTED PATIENT UP TO BSC. PATIENT REQUIRED ASSISTANCE WITH STANDING AND PIVOTING. ON VAPOTHERM AT 40L 100% Fi02. PATIENT HAD LARGE SOFT BM. COMPLAINS OF BLADDER DISCOMFORT FROM VERGARA. VERGARA DRAINING WELL WHILE PATIENT IS ON BSC. HAS BEEN POSITIONAL. IV FLUIDS PER ORDER, SITE WNL. PATIENT HAS CLEAR LUNG SOUNDS ON THE LEFT, CRACKLES IN THE RIGHT MID AND LOWER LOBES. CLEAR IN THE RUL. PRN COUGH MEDS PROVIDED. PATIENT REQUEST TO SIT AT EDGE OF THE BED FOR A FEW MINS TO USE HER CELL PHONE. PATIENT TOLERATING THE VAPOTHERM. WARM BLANKET PROVIDED. CALL LIGHT IN REACH.
--- NOTE | 2020-11-18 20:42 | NUR ---
PROVIDED UPDATE TO . RECEIVED ORDER FOR PRN PYRIDIUM FOR PATIENT'S VERGARA DISCOMFORT.
--- NOTE | 2020-11-18 21:34 | NUR ---
PATIENT CONTINUES TO SIT AT THE EDGE OF HER BED. O2 SATS 99-100% ON VAPOTHERM. PATIENT REQUESTING THIS TIME TO USE HER PHONE AND HAVE HER GLASSES ON TO SEE.
--- NOTE | 2020-11-18 22:22 | NUR ---
ASSISTED PATIENT BACK INTO BED. LAYING ON HER RIGHT SIDE. PATIENT REPORTS FEELING EXTREMELY TIRED BUT TOLERATES WELL. PRN PYRIDIUM PROVIDED. PATIENT REPORTS FEELING LEAKING AROUND THE VERGARA BUT NO URINE NOTED ON THE BED. RAMU PAD PLACED BETWEEN PATIENT'S LEGS. PATIENT BACK ON BIPAP AT 45% Fi02. TOLERATING WELL. 02 SATS 94%, RR 36. IV FLUIDS PER ORDER, SITE WNL. CALL LIGHT IN REACH.
--- NOTE | 2020-11-19 | NUR ---
patient tolerating bipap well, rr 32-34. O2 sats 94-96% on 45% Fi02. Allowed patient to rest.
--- NOTE | 2020-11-19 02:30 | NUR ---
PATIENT WOKE EASILY. REPORTS BEING COMFORTABLE AND NOT WANTING TO TURN AT THIS TIME. RR 34. O2 SATS 95% ON BIPAP AT 45% Fi02. IV SITE WNL, FLUIDS PER ORDER. GOOD URINE OUTPUT NOTED IN VERGARA. ALLOWED PATIENT TO REST.
--- NOTE | 2020-11-19 05:19 | NUR ---
PATIENT CONTINUES TO HAVE GOOD URINE OUTPUT. TOLERATING BIPAP. DOESN'T WAKE WHEN STAFF IN ROOM. ALLOWED TO REST. CALL LIGHT IN REACH.
--- NOTE | 2020-11-19 06:00 | NUR ---
PATIENT HAVING COUGHING FITS AND NEEDING BIPAP REMOVED TO SPIT. VAPOTHERM AT 40L 100% Fi02 PLACE. PATIENT PROVIDED WITH COUGH MEDICATIONS. PATIENT CONTINUES TO COUGH AND WANTS TO SIT AT EDGE OF THE BED. STAFF ASSISTED PATIENT INTO TRIPOD POSITION AT THE EDGE OF THE BED. PATIENT NOT TOLERATING BEING OFF THE BIPAP, SATS 72-74%. PATIENT PLACED ON BIPAP. RR 52. TITRATED TO 100% Fi02. RT CALLED. PATIENT ON HER HIGH LEFT SIDE. O2 SATS IMPROVED TO 88% AFTER SEVERAL MINS. PATIENT CONTINUES TO NEED TO SPIT OUT SPUTUM. RN ASSIST TO KEEP MASK ON MUCH POSSIBLE. MD NOTIFIED.
--- NOTE | 2020-11-19 06:30 | NUR ---
MD IN TO SEE PATIENT. DISCUSSED PLAN OF CARE. PATIENT WISHES TO BE FULL CODE AND AGREES TO INTUBATION. ALL QUESTIONS ANSWERED BY MD. PATIENT ON BIPAP 80% Fi02. RR 38-42.
--- NOTE | 2020-11-19 07:33 | NUR ---
AT 0700 IT WAS DECIDED TO INTUBATE PT. INTUBATION STARTED AT 0709 AND FINISHED AT 0710. SEIZE 7.0 TUBE WAS USED, TUBE IS 20CM AT THE LIP. PT NOW ON PROPOFOL AT 10MCG/KG/MIN.
--- NOTE | 2020-11-19 08:30 | NUR ---
LIFE FLIGHT ARRIVED AT 0820, PT LEFT CCU AT 0830. PT OVERALL TOLERATED EVERYTHING WELL. V/S OVERALL ACCEPTABLE GIVEN THE SITUATION.
== END 2020-11-19 08:30 | disposition short-term general hospital (02) | DRG 177 ==
LOC: ED 14:36 → CCU 16:37
PROVIDERS: ADMIT Internal Medicine; ATTEND Internal Medicine
PROC: XW033E5 Introduction of Remdesivir Anti-infective into Peripheral Vein, Percutaneous Approach, New Technology Group 5 (ICD-10-PCS; principal; 2020-11-15)
PROC: 3E0333Z Introduction of Anti-inflammatory into Peripheral Vein, Percutaneous Approach (ICD-10-PCS; 2020-11-15)
PROC: 5A09357 Assistance with Respiratory Ventilation, Less than 24 Consecutive Hours, Continuous Positive Airway Pressure (ICD-10-PCS; 2020-11-16)
PROC: 0BH17EZ Insertion of Endotracheal Airway into Trachea, Via Natural or Artificial Opening (ICD-10-PCS; 2020-11-19)
DX: U07.1 COVID-19 (principal); J12.82 Pneumonia due to coronavirus disease 2019; J12.81 Pneumonia due to SARS-associated coronavirus; J96.01 Acute respiratory failure with hypoxia; E03.9 Hypothyroidism, unspecified; Z79.899 Other long term (current) drug therapy; Z88.2 Allergy status to sulfonamides
CPT/HCPCS: 31500; 36600; 71045; 80048; 80053; 80076; 82803; 83605; 83735; 85025; 86140; 87040; 93005; 93010; 94002; 94660; 94667; 94668; 94799; 96374; 99285-25; J1100; J1644; J1650; J1940; J2405; J2704; J7050; J7121